=== PATIENT | female | born 1970 | race Caucasian/White ===

== ENCOUNTER 2018-02-13 13:17 | Inpatient (IN) | payer BC ==
[2018-02-13] MEDS ORDERED: NS 0.9% 1000 ML* 1,000 ML IV ONE (13:59)
--- NOTE | 2018-02-13 14:28 | RAD ---
HISTORY: abd pain COMPARISONS: CT dated November 03, 2017 VIEWS: Frontal views of the abdomen. FINDINGS: BOWEL: There is distention with mild dilatation of the colon with a transition at the site of surgical anastomosis of the rectum. There is no small bowel dilatation. CALCULI: There are no abnormal calculi. BONES AND SOFT TISSUES: There are no osseous abnormalities. OTHER FINDINGS: The lung bases are clear. There is no subphrenic gas. IMPRESSION: THERE IS DISTENTION AND MILD DILATATION OF THE LARGE BOWEL WITH A TRANSITION POINT AT THE SITE OF SURGICAL ANASTOMOSIS OF THE RECTUM WHICH MAY INDICATE SOME DEGREE OF MECHANICAL OBSTRUCTION OF THE COLON.
[2018-02-13 14:56] LABS: ABS Basophils 0.1 10^3/ul (0-0.2); ABS Eosinophils 0.1 10^3/ul (0-0.6); ABS Lymphocytes 1.8 10^3/ul (1.0-4.8); ABS Monocytes 0.6 10^3/ul (0-0.8); ABS Nucleated RBC 0 10^3/ul; Eosinophil % 1.3 % (0-6); Hematocrit 45 % (35-47); Hemoglobin 15.2 g/dl (12.0-16.0); Lymphocyte % 21.2 % (25-47); Mean Corpuscular HGB Conc 33 g/dl (31-36); Mean Corpuscular Hemoglobin 29 pg (27-31); Mean Corpuscular Volume 87 fL (80-97); Nucleated Red Blood Cells % 0; Platelet Count 416 10^3/ul (150-450); Red Blood Count 5.24 10^6/ul (4.00-5.40); Red Cell Distribution Width 14 % (10.5-15); White Blood Count 8.6 10^3/ul (3.5-10.8)
[2018-02-13 15:11] LABS: INR 1.03 (0.77-1.02)
[2018-02-13 15:16] LABS: EGFR Non-African American 54.7 (>60)
[2018-02-13] MEDS ORDERED: Iodixanol* (CONTRAST) 320 MG/ML 100 ML SDV IV ONE (15:36)
--- NOTE | 2018-02-13 17:29 | RAD ---
INDICATION: Small bowel obstruction. COMPARISON: Comparison is made with a prior CT of the abdomen and pelvis from November 03, 2017. Correlation is also made with a CT of the chest from August 28, 2015. TECHNIQUE: A CT scan of the abdomen and pelvis was performed with intravenous and with oral contrast following intravenous injection of 66 ml of Visipaque 320 nonionic contrast. Contiguous axial sections were obtained from the lung bases through the symphysis pubis. Images were reconstructed in the coronal and sagittal planes. FINDINGS: There is a small 3 mm nodule present at the right lung base which appears unchanged from prior studies and therefore most consistent with a benign process. No infiltrate or pleural effusion is seen. The liver and spleen are normal in size. There is mild intrahepatic ductal distention. The pancreas is within normal limits in size. There is mild pancreatic ductal distention which is slightly more prominent than on the prior study. The kidneys and adrenal glands are normal in size. No hydronephrosis is seen. No significant focal renal abnormality is seen. The aorta is normal in caliber and demonstrates homogeneous contrast opacification. No significant enlarged retroperitoneal lymph nodes are seen. The stomach is moderately distended. The proximal small bowel is nondistended. The mid and distal small bowel are distended with air-fluid levels approximately to the level of the distal rectum. The patient appears to be status post total colectomy. There is an anastomotic suture in the rectum. The uterus is normal in size and anteverted. There is a cystic lesion present in the left adnexal region measuring 6.5 x 4.6 cm in size which is unchanged from the prior study and less prominent than an exam from June 2015 No free intraperitoneal air or fluid is seen. No significant focal osseous abnormality is seen. IMPRESSION: 1. STATUS POST TOTAL COLECTOMY. THERE IS DISTENTION OF THE MID AND DISTAL SMALL BOWEL WITH AIR-FLUID LEVELS CONSISTENT WITH EITHER A PARTIAL OBSTRUCTION OR ILEUS. 2. MODERATE DISTENTION OF THE STOMACH. 3. MILD INTRAHEPATIC AND PANCREATIC DUCTAL DISTENTION POSSIBLY RELATED TO THE BOWEL DISTENTION. 4. CYSTIC LEFT ADNEXAL LESION, UNCHANGED.
--- NOTE | 2018-02-13 17:42 | ED ---
Abdominal Pain/Female - HPI Summary HPI Summary: Pt is a 47 y/o F who presents to ED c/o abdominal pain. Notes diarrhea, dehydration, and pain from not being able to pass gas. Rates her pain as a 6/10 in severity at triage. She is not in any pain when physician visits the room. Denies rash. She is not eating or drinking well. Pt has been having these GI problems for about a year now and sees Dr. Morgan for them. Had a CAT scan 4 months ago and took a celiac test but results were negative. Had a colostomy but was reconnected in 1993. She doesnt smoke or drink alcohol. - History of Current Complaint Chief Complaint: EDAbdPain Stated Complaint: ABD PAIN/GENERAL ILLNESS Time Seen by Provider: 02/13/18 13:46 Hx Obtained From: Patient Hx Last Menstrual Period: 1 wk ago Onset/Duration: Lasting Weeks, Still Present Severity Currently: Moderate Pain Intensity: 6 Pain Scale Used: 0-10 Numeric Associated Signs and Symptoms: Positive: Diarrhea, Other: - dehydration, NEGATIVE: rash Allergies/Adverse Reactions: Allergies Allergy/AdvReac Type Severity Reaction Status Date / Time levofloxacin Allergy Itching Verified 02/13/18 16:16 Sulfa (Sulfonamide Allergy Rash Verified 02/13/18 16:16 Antibiotics) Home Medications: Home Medications NK [No Home Medications Reported] 02/13/18 [History Confirmed 02/13/18] PMH/Surg Hx/FS Hx/Imm Hx Endocrine/Hematology History: Denies: Hx Diabetes Cardiovascular History: Denies: Hx Angina, Hx Congestive Heart Failure, Hx Coronary Artery Disease, Hx Hypercholesterolemia, Hx Hypertension, Hx Myocardial Infarction, Hx Valvular Heart Disease Respiratory History: Reports: Other Respiratory Problems/Disorders - cough since april, Denies: Hx Asthma, Hx Chronic Obstructive Pulmonary Disease (COPD) GI History: Reports: Hx Gastroesophageal Reflux Disease, Other GI Disorders - hx colitis History: Denies: Hx Renal Disease Psychiatric History: Reports: Hx Attention Deficit Hyperactivity Disorder - Cancer History Hx Chemotherapy: No Hx Radiation Therapy: No - Surgical History Surgery Procedure, Year, and Place: total colectomy , Myomectomy 2009. multiple perirectal abscess/fistula/fissure surgeries. fibroidectomy. c- section 2004 Infectious Disease History: No Infectious Disease History: Denies: Traveled Outside the [place] in Last 30 Days - Family History Known Family History: Positive: Other - Colitis and Celiac Disease - Social History Alcohol Use: Rare Substance Use Type: Reports: None Smoking Status (MU): Never Smoked Tobacco Review of Systems Positive: Other - dehydrated Positive: Abdominal Pain, Diarrhea Negative: Rash All Other Systems Reviewed And Are Negative: Yes Physical Exam - Summary Physical Exam Summary: Appearance: Well appearing, no pain distress Skin: warm, dry, reflects adequate perfusion Head/face: normal Eyes: EOMI, FELICITA ENT: normal Neck: supple, non-tender Respiratory: CTA, breath sounds present Cardiovascular: RRR, pulses symmetrical Abdomen: mild tenderness in LLQ and RLQ, soft Bowel: present Musculoskeletal: strength/ROM intact Neuro: normal, sensory motor intact, A&Ox3 Triage Information Reviewed: Yes Vital Signs On Initial Exam: Initial Vitals Temp Pulse Resp BP Pulse Ox 98.4 F 107 18 137/104 98 02/13/18 13:36 02/13/18 13:36 02/13/18 13:36 02/13/18 13:36 02/13/18 13:36 Vital Signs Reviewed: Yes Diagnostics - Vital Signs Vital Signs Temp Pulse Resp BP Pulse Ox 02/13/18 16:00 67 99 02/13/18 15:00 86 96 02/13/18 14:00 91 96 02/13/18 13:50 95 98 02/13/18 13:36 98.4 F 107 18 137/104 98 - Laboratory Lab Results: Lab Results 02/13/18 02/13/18 02/13/18 Range/Units 14:39 14:39 14:39 WBC 8.6 (3.5-10.8) 10^3/ul RBC 5.24 (4.00-5.40) 10^6/ul Hgb 15.2 (12.0-16.0) g/dl Hct 45 (35-47) % MCV 87 (80-97) fL MCH 29 (27-31) pg MCHC 33 (31-36) g/dl RDW 14 (10.5-15) % Plt Count 416 (150-450) 10^3/ul MPV 7.0 L (7.4-10.4) um3 Neut % (Auto) 70.1 (38-83) % Lymph % (Auto) 21.2 L (25-47) % [place] % (Auto) 6.6 (0-7) % Eos % (Auto) 1.3 (0-6) % Baso % (Auto) 0.8 (0-2) % Absolute Neuts (auto) 6.0 (1.5-7.7) 10^3/ul Absolute Lymphs (auto) 1.8 (1.0-4.8) 10^3/ul Absolute Monos (auto) 0.6 (0-0.8) 10^3/ul Absolute Eos (auto) 0.1 (0-0.6) 10^3/ul Absolute Basos (auto) 0.1 (0-0.2) 10^3/ul Absolute Nucleated RBC 0 10^3/ul Nucleated RBC % 0 INR (Anticoag Therapy) 1.03 H (0.77-1.02) APTT 31.5 (26.0-36.3) seconds Sodium 134 L (135-145) mmol/L Potassium 3.9 (3.5-5.0) mmol/L Chloride 101 (101-111) mmol/L Carbon Dioxide 23 (22-32) mmol/L Anion Gap 10 (2-11) mmol/L BUN 20 (6-24) mg/dL Creatinine 1.07 H (0.51-0.95) mg/dL Est GFR ( Amer) 66.2 (>60) Est GFR (Non-Af Amer) 54.7 (>60) BUN/Creatinine Ratio 18.7 (8-20) Glucose 93 (70-100) mg/dL Lactic Acid (0.5-2.0) mmol/L Calcium 9.7 (8.6-10.3) mg/dL Total Bilirubin 0.90 (0.2-1.0) mg/dL AST 20 (13-39) U/L ALT 12 (7-52) U/L Alkaline Phosphatase 69 (34-104) U/L Total Protein 8.0 (6.4-8.9) g/dL Albumin 4.5 (3.2-5.2) g/dL Globulin 3.5 (2-4) g/dL Albumin/Globulin Ratio 1.3 (1-3) Lipase 17 (11.0-82.0) U/L //18 Range/Units 15:59 WBC (3.5-10.8) 10^3/ul RBC (4.00-5.40) 10^6/ul Hgb (12.0-16.0) g/dl Hct (35-47) % MCV (80-97) fL MCH (27-31) pg MCHC (31-36) g/dl RDW (10.5-15) % Plt Count (150-450) 10^3/ul MPV (7.4-10.4) um3 Neut % (Auto) (38-83) % Lymph % (Auto) (25-47) % [place] % (Auto) (0-7) % Eos % (Auto) (0-6) % Baso % (Auto) (0-2) % Absolute Neuts (auto) (1.5-7.7) 10^3/ul Absolute Lymphs (auto) (1.0-4.8) 10^3/ul Absolute Monos (auto) (0-0.8) 10^3/ul Absolute Eos (auto) (0-0.6) 10^3/ul Absolute Basos (auto) (0-0.2) 10^3/ul Absolute Nucleated RBC 10^3/ul Nucleated RBC % INR (Anticoag Therapy) (0.77-1.02) APTT (26.0-36.3) seconds Sodium (135-145) mmol/L Potassium (3.5-5.0) mmol/L Chloride (101-111) mmol/L Carbon Dioxide (22-32) mmol/L Anion Gap (2-11) mmol/L BUN (6-24) mg/dL Creatinine (0.51-0.95) mg/dL Est GFR ( Amer) (>60) Est GFR (Non-Af Amer) (>60) BUN/Creatinine Ratio (8-20) Glucose (70-100) mg/dL Lactic Acid 0.7 (0.5-2.0) mmol/L Calcium (8.6-10.3) mg/dL Total Bilirubin (0.2-1.0) mg/dL AST (13-39) U/L ALT (7-52) U/L Alkaline Phosphatase (34-104) U/L Total Protein (6.4-8.9) g/dL Albumin (3.2-5.2) g/dL Globulin (2-4) g/dL Albumin/Globulin Ratio (1-3) Lipase (11.0-82.0) U/L Result Diagrams: 02/13/18 14:39 02/13/18 14:39 Lab Statement: Any lab studies that have been ordered have been reviewed, and results considered in the medical decision making process. - Radiology Abdomen X-Ray Radiology Interpretation Completed By: Radiologist - 13:59. Impression: THERE IS DISTENTION AND MILD DILATATION OF THE LARGE BOWEL WITH A TRANSITION POINT AT THE SITE OF SURGICAL ANASTOMOSIS OF THE RECTUM WHICH MAY INDICATE SOME DEGREE OF MECHANICAL OBSTRUCTION OF THE COLON. ED Physician reviewed this report. - CT CT Abd/Pel CT Interpretation Completed By: Radiologist - 15:15. Impression:1. STATUS POST TOTAL COLECTOMY. THERE IS DISTENTION OF THE MID AND DISTAL SMALL BOWEL WITH AIR- FLUID LEVELS CONSISTENT WITH EITHER A PARTIAL OBSTRUCTION OR ILEUS. 2. MODERATE DISTENTION OF THE STOMACH. 3. MILD INTRAHEPATIC AND PANCREATIC DUCTAL DISTENTION POSSIBLY RELATED TO THE BOWEL DISTENTION. 4. CYSTIC LEFT ADNEXAL LESION, UNCHANGED. ED Physician reviewed this report. Abdominal Pain Fem Course/Dx - Course Course Of Treatment: Pt is a 47 y/o F who presents to ED c/o abdominal pain that she rates as a 6/10 in severity . Notes diarrhea, dehydration, and pain from not being able to pass gas. Denies rash. Physical reveals mild tenderness in LLQ and RLQ. Abdomen X-Ray shows distention and dilatation of the large bowel with a transition point at the site of surgical anastomosis of the rectum which may indicate some degree of mechanical obstruction of the colon. CT Abd/ Pel shows distention of the mid and distal small bowel with air-fluid levels consistent with either a partial obstruction or ileus, moderate distention of the stomach, mild intrahepatic and pancreatic ductal distention, and cystic left adnexal lesion. In the ED course she was given fluids and Iodixanol. Pt was diagnosed with partial bowel obstruction, ileus, and abdominal pain and was admitted to [facility] after consulting with Dr. Ramos. Pt is agreeable with plan. - Diagnoses Differential Diagnosis: Positive: Bowel Obstruction, Diverticulitis, Pancreatitis, Renal Colic, Urinary Tract Infection Provider Diagnoses: Partial bowel obstruction, Abdominal pain, Ileus - Provider Notifications Discussed Care Of Patient With: Harrison Ramos Time Discussed With Above Provider: 17:45 Instructed by Provider To: Admit As Inpatient Discharge - Sign-Out/Discharge Documenting (check all that apply): Patient Departure - Admit - Discharge Plan Condition: Fair Disposition: ADMITTED TO [facility] Referrals: Matilda Rodriguez MD [Primary Care Provider] - - Billing Disposition and Condition Condition: FAIR Disposition: Admitted to [facility]
[2018-02-13] MEDS ORDERED: Ondansetron INJ* 2 MG/ML VIAL IV PRN (18:19)
[2018-02-13 18:41] LABS: Urine Appearance Clear; Urine Blood 2+ (Negative); Urine Color Yellow; Urine Ketones 1+ (Negative); Urine Protein Negative (Negative); Urine Red Blood Cell Trace(0-2/hpf) (Absent); Urine Specific Gravity 1.012 (1.010-1.030); Urine Urobilinogen Negative (Negative); Urine White Blood Cell Trace(0-5/hpf) (Absent)
[2018-02-13] MEDS ORDERED: Ciprofloxacin 400MG IVPREMIX(* 400 MG/200 ML BAG IVPB STA (18:41)
[2018-02-13] MEDS ORDERED: Ketorolac INJ* 30 MG/ML 1 ML VIAL IV PUSH PRN (18:44)
[2018-02-13] MEDS ORDERED: Morphine INJ* 2 MG/ML 1 ML SYRINGE (TWO MG - NEW SYRINGE VERSION) IV PRN (18:44)
[2018-02-13] MEDS ORDERED: D5W 1/2 NS 40 Meq KCL 1000 ML* 1,000 ML IV SCH (19:00)
[2018-02-13] MEDS: Pantoprazole IV* 40 MG IV SCH (19:17)
--- NOTE | 2018-02-13 22:50 | HP ---
CC: Matilda Rodriguez MD; Dr. Yovany Morgan.* HISTORY AND PHYSICAL: DATE OF ADMISSION: 02/13/18 PRIMARY CARE DOCTOR: Matilda Rodriguez MD MY ATTENDING PHYSICIAN WHILE IN THE HOSPITAL: Dr. Harrison Ramos * ( DICATED BY DEACON TUCKER) SENIOR PLANNING ANALYST: Dr. Yovany Morgan CHIEF COMPLAINT: Abdominal pain and bloating x2 weeks. HISTORY OF PRESENT ILLNESS: Ms. Mcwilliams is a 47-year-old female with a complex past medical history for ulcerative colitis with pancolitis status post colectomy with ileostomy with subsequent ileoanal pull-through in 1998 as well as a history of reflux, aspiration pneumonia, recurrent pouchitis and small bowel obstruction, who has been having for approximately a year an issue with the early satiety, gas, and bloating but this got much worse over the 2 weeks ago when she was on a vacation and she started having increased abdominal pain, bloating as well as fevers, chills, and fecal incontinence. The patient had has been having frequent small bowel movements with small amounts of red blood in them, which is not uncommon for her. The patient feels like she cannot pass gas and this feels similar to when she previously had small bowel obstructions, but also when she has had pouchitis. The patient previously was admitted for 2 small bowel obstructions most recently in 2009, which resolved after 6 days with NG tube insertion. The patient has had numerous abdominal surgeries as above and most recently had a drainage of a fluid collection in her abdomen under CT guidance. The patient states the pain is a severe at times up to a 10/ 10 worse with movement, better sometimes when she stands still, worse with palpation, not relieved by bowel movements. The patient has been having worsening fecal incontinence for the past several days. The patient also has the sensation occasionally that there is no blood flow to her abdomen, but she cannot elucidate on this further. The patient has been nauseated without vomiting, has not had reflux symptoms, but does not feel like her when she eats anything that her food goes anywhere and this has been going on for 2 weeks with very poor oral intake. The patient came into the emergency department and had a pelvis CT, which showed concern for small bowel obstruction with multiple air fluid levels in the distal small bowel with mild intrahepatic pancreatic ductal dilatation possibly to bowel obstruction and mild distention of the stomach. Due to the concern for small bowel obstruction, we are asked to admit the patient to the hospital. PAST MEDICAL HISTORY: Ulcerative colitis with pancolitis, ileal pouchitis, GERD with aspiration pneumonia, obstructive sleep apnea, ADD, depression, small bowel obstruction x2, uterine fibroids, cholecystitis with pancreatitis, multiple perirectal abscesses. PAST SURGICAL HISTORY: Ileostomy with ileal pull-through, cholecystectomy, fibroidectomy, , CT guided drainage both intra-abdominal fluid collection. MEDICATIONS: 1. Loratadine 10 mg p.o. daily. 2. The patient recently discontinued hyoscyamine for cramping as well as bupropion for anxiety depression. ALLERGIES: SULFA, LEVOFLOXACIN. FAMILY HISTORY: The patient's brother has ulcerative colitis. The patient's sister has celiac disease. The patient's father is alive, has hypertension, diabetes mellitus. The patient's mother of aortic dissection. SOCIAL HISTORY: The patient never smoked, never drank, never used illicit drugs. 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 The patient is , has 1 child. The patient would like her surrogate decision maker to be her , Yanick Mcwilliams. REVIEW OF SYSTEMS: 14 point review of systems were reviewed, is negative except as above in the HPI. PHYSICAL EXAMINATION GENERAL: The patient is a 47-year-old female, who appears stated age and sitting comfortably in bed in no acute distress. VITAL SIGNS: At the time of evaluation, temperature 98.4, pulse rate 67, respiratory rate 18, oxygen saturation 99% on room air, blood pressure 137/104. HEENT: Head: Normocephalic, atraumatic. Sclerae anicteric. No conjunctival injection. Nasal mucosa moist. Oral mucosa moist. No pharyngeal erythema, discharge, or exudate. NECK: Supple, nontender. No lymphadenopathy. No carotid bruit auscultated. No JVD. RESPIRATORY: Clear to auscultation bilaterally. No wheezes, rales or rhonchi. Good air exchange bilaterally. HEART: Regular rate and rhythm. No clicks, murmurs, gallops or rubs. Pulse is 2+ in the dorsalis pedis, posterior tibialis, and radial areas. ABDOMEN: Distended, tympanic to percussion, tender to palpation over the bilateral lower quadrants. No hepatosplenomegaly. No abdominal bruits auscultated. No hepatojugular reflux. Hyperactive bowel sounds of normal quality. Rectal exam shows constricted rectal vault with no mass, small amount of stool present, no blood, warmth and inflammation. GENITOURINARY: No suprapubic or CVA tenderness. SKIN: Clean, dry, intact. No rash. Multiple abdominal scars consistent with previous surgeries. NEUROLOGIC: Cranial nerves II through XII intact. No focal deficits. Alert and oriented x3. PSYCHIATRIC: Pleasant and cooperative. DIAGNOSTIC STUDIES/LAB DATA: White blood cell count 8.6, hemoglobin 15.2, hematocrit 45, platelet count 416, INR 1.03, aPTT 31.5. Sodium 134, potassium 3.9, chloride 101, carbon dioxide 23, anion gap 10, BUN 20, creatinine 1.07, glucose 93, lactic acid 0.7, calcium 9.7, bilirubin 0.9, AST 20, ALT 12, alkaline phosphatase 69. Total protein 8.0, albumin 4.5, globulin 3.5, lipase 17. Studies done while in the hospital, abdomen x-ray read as there is distention, mild dilatation of large bowel with transition point at the site of surgical anastomosis of the rectum, which may indicate some degree of obstruction of the colon. Abdomen pelvis CT read as status post total colectomy, there is distention of the mid and distal small bowel with air fluid levels consistent with either partial small bowel obstruction or ileus, mild distention of the stomach, mild intrahepatic and pancreatic ductal dilatation possibly related to bowel distention, cystic left adnexal lesion unchanged. ASSESSMENT AND PLAN/IMPRESSION: Ms. Mcwilliams is a 47-year-old female with past medical history significant for ulcerative colitis with subtotal colectomy with ileoanal pull-through and recurrent ileal pouchitis as well as 2 small bowel obstructions presumably related adhesions, who presents to the hospital with worsening abdominal distention and bloating, was found to have possible small bowel obstruction or ileus and clinical signs consistent with patient's previous episode of pouchitis. The patient will be admitted to the hospital for NG tube decompression, IV antibiotics and supportive care. 1. Partial small bowel obstruction versus ileus: The patient has a history of multiple small bowel obstructions related to presumed adhesions due to numerous intra-abdominal surgeries, these have both previously resolved with NG tube insertion and conservative treatment. Surgery has been consulted and recommended again NG tube insertion and they will see the patient tomorrow. The patient is still having bowel movements, have a normal lactic acid, and there is no urgent need for surgery. The patient has clinical signs of pouchitis and this may also be ileus related to inflammation. We will obtain Gastroenterology consultation when available if the patient still admitted. The patient will be n.p.o. and have a repeat abdominal x-ray in the morning. 2. Possible pouchitis: The patient has a history of pouchitis, which is usually accompanied by abdominal pain, tenesmus and fecal incontinence, which the patient is having at this time. We will treat with IV Cipro as the patient is n.p.o. and monitor for improvement. It is unclear the patient should be considered to be started on prophylactic therapy for pouchitis outpatient including probiotic therapy. 3. Gastroesophageal reflux disease: The patient is not currently on antacid therapy. We will start the patient on pantoprazole as she has a history of gastroesophageal reflux disease and aspiration pneumonia. 4. Obstructive sleep apnea: The patient will not be able to use her CPAP machine from home due to NG tube. 5. Ulcerative colitis: It is unclear why the patient is not on disease- modifying therapy, that should be discussed with her outpatient tamping machine operator and none will be instituted while she is in the hospital 6. Depression: The patient recently stopped her Wellbutrin. The patient is to follow up with her outpatient primary care provider. After the acute phase of her illness, we will discuss her treatment of depression and attention deficit disorder. 7. FEN: The patient will have maintenance fluids at 75 mL an hour of one half normal saline D5W with 40 mEq of potassium chloride. 8. DVT prophylaxis: The patient is a low risk. The patient will have SCDs in the setting of small amount of rectal bleeding. 9. Disposition: The patient is admitted inpatient with expected length of stay greater than 2 midnights. TIME SPENT: Approximately 90 minutes were spent on this admission, 45 of which was spent [id number] with the patient obtaining history and physical and discussing treatment plan. This plan was discussed with my attending, Dr. Lavelle Ramos, and he is in agreement. DEACON TUCKER [id number]/[facility] #: [id number] [facility]ENTERIsrael
--- NOTE | 2018-02-14 00:54 | CONS ---
CC: Dr. Matilda Rodriguez; Dr. Yovany Morgan * CONSULTATION REPORT: DATE OF CONSULT: 02/13/18 PRIMARY CARE PROVIDER: Dr. Matilda Rodriguez. REFERRING PROVIDER: DEACON Betancourt, Hospitalist. REASON FOR CONSULTATION: Possible small-bowel obstruction. HISTORY OF PRESENT ILLNESS: Ms. Katarzyna Mcwilliams is a very pleasant 47-year-old woman who had been diagnosed with ulcerative colitis many years ago and underwent a staged procedure back in 1992 and 1993 in [facility] where she had a total proctocolectomy with subsequent ileoanal pouch formation. She had some problems in the past with multiple perirectal abscesses and fistulas, but this has been quiescent. She presented to the emergency room with several weeks of worsening abdominal crampiness and distention associated with nausea. She states she always had loose bowel movements since her surgery, which is to be expected and has had several flexible sigmoidoscopies performed by Dr. Nair and Dr. Morgan and has been diagnosed with pouchitis and is treated with antibiotics for short periods of time. She is on no other inflammatory bowel medications. Over the last several weeks; however, she has become more distended and crampy abdominal discomfort with nausea and she presented to the emergency room today for further care. She further states that she has been having difficulty passing bowel movements but is able to pass some gas. She was noted to be afebrile with stable vital signs. Laboratory workup was unremarkable with a normal white blood cell count and electrolytes with a BUN and creatinine of 21.07. Albumin level was 4.5 and she had a C-reactive protein of 22. She underwent a CT scan of the abdomen and pelvis. I did review this study. This has been read by our radiologist as showing postsurgical change without obvious colorectum with some distention in the mid and distal small bowel with the distal pouch, which appears to be markedly distended with gas and fluid. The stomach was also markedly distended and filled with contrast fluid, but there was also collapsed small bowel in what appeared to be the proximal portion. Surgical consultation was obtained to rule out partial small-bowel obstruction. PAST MEDICAL HISTORY: Ulcerative colitis. HOME MEDICINES: None. ALLERGIES: She is allergic to LEVOFLOXACIN and SULFA. SOCIAL HISTORY: She has a one 13-year-old son. She is and stays as a [id number] mom. PHYSICAL EXAM: Temperature 98.2, pulse 74, blood pressure 125/81. In general, she is well-developed, very slender female, who was in no apparent distress. She is quite alert and conversive. A nurse was present for me for this part of the examination. Lungs were clear to auscultation. Abdomen is soft, but slightly distended. She has a well-healed midline incision as well as an ostomy site in the right mid abdomen. I appreciate no incisional hernias. She has hyperactive bowel sounds and almost rushy, but not high-pitched or tinkling. She has some mild tenderness on the right side of the abdomen, but there is no generalized abdominal pain, tenderness, rebound, or guarding noted. Rectal exam shows a significant amount of scarring in the perianal skin, but no abscesses or obvious fistulous openings. Digital rectal exam with the index finger; however, it is somewhat narrowed externally; however, passing this up to about 4 to 5 cm, I am able to identify what appears to be narrowing and I am able to only feel the relative change in the diameter of the lumen. Due to the patient's discomfort, I did not attempt to try to pass my finger further. There was no blood and no stool was expressed. IMPRESSION: Ulcerative colitis, status post total proctocolectomy with ileoanal J- pouch pull-through. This was done in 1993 and she had been doing well until about the last 6 months. She has had problems with pouchitis, but more recently is having abdominal distention and crampy abdominal pain, but is still passing flatus and several loose bowel movements. She underwent a flexible sigmoidoscopy several months ago with Dr. Morgan that shows pouchitis ; however, he states that there was no evidence of anal stenosis on a digital exam or passing the lubricated gastroscope into the distal small bowel. I am not convinced that there is a partial small-bowel obstruction here. The CT scan shows the stomach to be dilated, but this seems to me that the proximal small bowel is nondistended, but there is mid to distal small bowel distention, which is increased from the previous study done in October of this year. The distal small bowel extending down to the pouch area is distended and markedly fluid filled and I do not think that this finding is consistent with a bowel obstruction, although there could be a high-grade partial obstruction. There does not appear to be contrast at this point down into the more distended loops of small bowel, however. My main concern here would be anal stenosis at the probable site of the very distal anastomosis and also she has a history of abscesses and fistulas that could result in scarring and stenosis. Her rectal exam is impressive for the degree of narrowing as per above. PLAN: 1. The patient has been admitted and nasogastric has been inserted. There was a full canister drainage on initial insertion, but it does not appear to be draining much. 2. Repeat abdominal films will be obtained in the morning to follow the contrast from the oral portion of the exam to see if this is getting into the more distended loops of bowel to hopefully further evaluate for bowel obstruction or partial obstruction and to see if contrast passes down into the distal bowel. 3. We will talk with the GI service when they are available regarding the distal possible anal stenosis or anastomotic stenosis as this may be a source of her distention and may need dilation or other intervention. 4. She has been started on IV fluids and will be kept n.p.o. Thank you very much for this consultation. We will follow her closely with you. [id number]/[facility] #: [id number] BRITNEY
[2018-02-14 06:26] LABS: ABS Basophils 0.1 10^3/ul (0-0.2); ABS Eosinophils 0.3 10^3/ul (0-0.6); ABS Lymphocytes 1.6 10^3/ul (1.0-4.8); ABS Monocytes 0.7 10^3/ul (0-0.8); ABS Neutrophils 5.4 10^3/ul (1.5-7.7); ABS Nucleated RBC 0 10^3/ul; Eosinophil % 4.2 % (0-6); Hematocrit 41 % (35-47); Hemoglobin 13.5 g/dl (12.0-16.0); Lymphocyte % 19.5 % (25-47); Mean Corpuscular HGB Conc 33 g/dl (31-36); Mean Corpuscular Hemoglobin 29 pg (27-31); Mean Corpuscular Volume 88 fL (80-97); Mean Platelet Volume 6.9 um3 (7.4-10.4); Nucleated Red Blood Cells % 0; Platelet Count 379 10^3/ul (150-450); Red Blood Count 4.69 10^6/ul (4.00-5.40); Red Cell Distribution Width 13 % (10.5-15)
[2018-02-14 06:47] LABS: EGFR Non-African American 71.4 (>60)
--- NOTE | 2018-02-14 08:07 | RAD ---
INDICATION: Small bowel obstruction COMPARISON: KUB February 13, 2018; CT February 13, 2018 TECHNIQUE: Erect and supine views of the abdomen are submitted. FINDINGS: Bones: There are no acute bony findings. Soft tissues: The soft tissues appear normal. The psoas margins are sharp. Bowel gas pattern: There is air filled distended bowel down to level the rectum. There is contrast in the rectal vault. The findings are likely related to an ileus. The stomach is decompressed with nasogastric tube Calcifications: There are no abnormal calcifications. Other: None IMPRESSION: SUSPECT ILEUS.
--- NOTE | 2018-02-14 10:54 | PN ---
Progress Note - Progress Note Date of Service: 02/14/18 SOAP: Subjective: Had large amount of liquid stool and flatus after digital rectal exam last night Still with some abdominal cramps and pain Objective: Temp Pulse Resp BP Pulse Ox 98.3 F 65 14 114/72 100 02/14/18 07:20 02/14/18 07:20 02/14/18 07:20 02/14/18 07:20 02/14/18 07:20 Intake & Output 02/12/18 02/13/18 02/14/18 02/15/18 06:59 06:59 06:59 06:59 Intake Total 1000 Output Total 0 Balance 1000 Weight 118 lb 14.4 oz Intake: IV Fluids 1000 NS (0.9%) 1000 Oral 0 Output: Urine 0 Other: # Bowel Movements 0 About 200 cc of thin greenish fluid in NGT cannister PEX: Abdomen is soft and distended, less so than last night. Mild tenderness in mid portion, no rebound, guarding, peritoneal irritation Laboratory Results - last 24 hr 02/13/18 02/13/18 02/13/18 14:39 14:39 14:39 WBC 8.6 RBC 5.24 Hgb 15.2 Hct 45 MCV 87 MCH 29 MCHC 33 RDW 14 Plt Count 416 MPV 7.0 L Neut % (Auto) 70.1 Lymph % (Auto) 21.2 L Kingman % (Auto) 6.6 Eos % (Auto) 1.3 Baso % (Auto) 0.8 Absolute Neuts (auto) 6.0 Absolute Lymphs (auto) 1.8 Absolute Monos (auto) 0.6 Absolute Eos (auto) 0.1 Absolute Basos (auto) 0.1 Absolute Nucleated RBC 0 Nucleated RBC % 0 ESR 28 H INR (Anticoag Therapy) 1.03 H APTT 31.5 Sodium 134 L Potassium 3.9 Chloride 101 Carbon Dioxide 23 Anion Gap 10 BUN 20 Creatinine 1.07 H Est GFR ( Amer) 66.2 Est GFR (Non-Af Amer) 54.7 BUN/Creatinine Ratio 18.7 Glucose 93 Lactic Acid Calcium 9.7 Magnesium Total Bilirubin 0.90 AST 20 ALT 12 Alkaline Phosphatase 69 C-Reactive Protein 22.02 H Total Protein 8.0 Albumin 4.5 Globulin 3.5 Albumin/Globulin Ratio 1.3 Lipase 17 Vitamin B12 540 Urine Color Urine Appearance Urine pH Ur Specific [place] Urine Protein Urine Ketones Urine Blood Urine Nitrate Urine Bilirubin Urine Urobilinogen Ur Leukocyte Esterase Urine WBC (Auto) Urine RBC (Auto) Ur Squamous Epith Cells Urine Bacteria Hyaline Casts Urine Glucose 02/13/18 02/13/18 02/14/18 15:59 18:24 06:01 WBC 8.0 RBC 4.69 Hgb 13.5 Hct 41 MCV 88 MCH 29 MCHC 33 RDW 13 Plt Count 379 MPV 6.9 L Neut % (Auto) 67.1 Lymph % (Auto) 19.5 L Kingman % (Auto) 8.5 H Eos % (Auto) 4.2 Baso % (Auto) 0.7 Absolute Neuts (auto) 5.4 Absolute Lymphs (auto) 1.6 Absolute Monos (auto) 0.7 Absolute Eos (auto) 0.3 Absolute Basos (auto) 0.1 Absolute Nucleated RBC 0 Nucleated RBC % 0 ESR INR (Anticoag Therapy) APTT Sodium Potassium Chloride Carbon Dioxide Anion Gap BUN Creatinine Est GFR ( Amer) Est GFR (Non-Af Amer) BUN/Creatinine Ratio Glucose Lactic Acid 0.7 Calcium Magnesium Total Bilirubin AST ALT Alkaline Phosphatase C-Reactive Protein Total Protein Albumin Globulin Albumin/Globulin Ratio Lipase Vitamin B12 Urine Color Yellow Urine Appearance Clear Urine pH 5.0 Ur Specific [place] 1.012 Urine Protein Negative Urine Ketones 1+ A Urine Blood 2+ A Urine Nitrate Negative Urine Bilirubin Negative Urine Urobilinogen Negative Ur Leukocyte Esterase Negative Urine WBC (Auto) Trace(0-5/hpf) Urine RBC (Auto) Trace(0-2/hpf) Ur Squamous Epith Cells Present A Urine Bacteria Absent Hyaline Casts Present A Urine Glucose Negative 02/14/18 06:01 WBC RBC Hgb Hct MCV MCH MCHC RDW Plt Count MPV Neut % (Auto) Lymph % (Auto) Kingman % (Auto) Eos % (Auto) Baso % (Auto) Absolute Neuts (auto) Absolute Lymphs (auto) Absolute Monos (auto) Absolute Eos (auto) Absolute Basos (auto) Absolute Nucleated RBC Nucleated RBC % ESR INR (Anticoag Therapy) APTT Sodium 136 Potassium 4.0 Chloride 105 Carbon Dioxide 23 Anion Gap 8 BUN 15 Creatinine 0.85 Est GFR ( Amer) 86.4 Est GFR (Non-Af Amer) 71.4 BUN/Creatinine Ratio 17.6 Glucose 99 Lactic Acid Calcium 8.7 Magnesium 2.2 Total Bilirubin 1.30 H AST 125 H ALT 46 Alkaline Phosphatase 75 C-Reactive Protein Total Protein 6.7 Albumin 3.9 Globulin 2.8 Albumin/Globulin Ratio 1.4 Lipase Vitamin B12 Urine Color Urine Appearance Urine pH Ur Specific [place] Urine Protein Urine Ketones Urine Blood Urine Nitrate Urine Bilirubin Urine Urobilinogen Ur Leukocyte Esterase Urine WBC (Auto) Urine RBC (Auto) Ur Squamous Epith Cells Urine Bacteria Hyaline Casts Urine Glucose AXR 02/14 reviewed: Dilated SB throughout with CT oral contrast now down into most distal portion of SB in pelvis. Assessment: S/P total proctocolectomy with J pouch SB bowel dilation With clinical history, CT and AXR this morning and findings on rectal exam last night I do not believe that she has a proximal SBO obstruction but rather stenosis at the distal SB to anal anastomosis which is causing her obstructive symptoms. Optimal management not clear but need to talk with GI about scoping and possible dilation depending on findings. She may need to see a colorectal surgeon. No operative intervention recommended at this point. Plan: Discussed with patient and Dr. Abbott- need to talk with GI about scoping and management-not certain if GI coverage this weekend. Will d/c NGT
[2018-02-14] MEDS: Ciprofloxacin 400MG IVPREMIX(* 400 MG/200 ML BAG IVPB SCH ×2 (11:24→21:09)
[2018-02-14] MEDS: Acetaminophen TAB* 325 MG PO PRN (11:30)
[2018-02-14] MEDS: metroNIDAZOLE IV 500 MG/100ML* 500 MG/100 ML BAG IVPB SCH ×2 (13:15→19:44)
--- NOTE | 2018-02-14 13:30 | PN ---
Subjective Date of Service: 02/14/18 Interval History: HOSPITALIST PROGRESS NOTE Patient seen and examined at bedside. She feels a little better today. Abdominal pain is less intense, she doesn't feel as bloated as she did before. No N/V, but no appetite either. Family History: Unchanged from Admission Social History: Unchanged from Admission Past Medical History: Unchanged from Admission Objective Active Medications: Acetaminophen (Tylenol Tab*) 650 mg PO Q6H PRN PRN Reason: FEVER/PAIN Last Admin: 02/14/18 11:30 Dose: 650 mg Ciprofloxacin/Dextrose (Cipro 400 Mg Ivpremix(*)) 400 mg in 200 mls @ 200 mls/ hr IVPB Q12H [facility] Last Admin: 02/14/18 11:24 Dose: 200 mls/hr Potassium Chloride/Dextrose (D5w Ns 0.9% 20meq Kcl 1000 Ml*) 1,000 mls @ 75 mls /hr IV PER RATE [facility] Metronidazole/Sodium Chloride (Flagyl 500 Mg Ivpb*) 500 mg in 100 mls @ 100 mls /hr IVPB Q8H [facility] Last Admin: 02/14/18 13:15 Dose: 100 mls/hr Ketorolac Tromethamine (Toradol Inj*) 30 mg IV PUSH Q6H PRN PRN Reason: PAIN Last Admin: 02/13/18 19:25 Dose: 30 mg Morphine Sulfate (Morphine Inj ((Syringe))*) 2 mg IV Q4H PRN PRN Reason: PAIN - MILD Last Admin: 02/13/18 19:22 Dose: 2 mg Ondansetron HCl (Zofran Inj*) 4 mg IV Q6H PRN PRN Reason: NAUSEA Pantoprazole Sodium (Protonix Iv*) 40 mg IV 1800 [facility] Last Admin: 02/13/18 19:17 Dose: 40 mg Vital Signs - 8 hr 02/14/18 07:20 Temperature 98.3 F Pulse Rate 65 Respiratory 14 Rate Blood Pressure 114/72 (mmHg) O2 Sat by Pulse 100 Oximetry Oxygen Devices in Use Now: None Appearance: Pleasant lady sitting up in bed in NAD. Eyes: No Scleral Icterus Ears/Nose/Mouth/Throat: Mucous Membranes Moist Neck: Trachea Midline Abdominal: - - Soft, mild distention, BS+ Neurological: Alert and Oriented x 3, NL Muscle Strength and Tone Result Diagrams: 02/14/18 06:01 07/28/18 06:01 Assess/Plan/Problems-Billing Assessment: Mrs Mcwilliams is a 47yo F with PMH of UC s/p proctocolectomy with J pouch, GERD, OLIVE, who presented to ED with c/o abdominal pain and bloating. - Patient Problems (1) SBO (small bowel obstruction) Comment: - SBO vs stenosis of anal anastomosis. - Surgery input apreciated. - Remove NGT, give ice chips. - Will discuss with GI. (2) GERD (gastroesophageal reflux disease) Comment: - Continue PPI. (3) OLIVE (obstructive sleep apnea) Comment: - Resume CPAP. (4) DVT prophylaxis Comment: - SCDs. (5) Full code status Status and Disposition: Inpatient.
[2018-02-14] MEDS: D5W NS 0.9% 20Meq KCL 1000 ML* 1,000 ML IV SCH (15:13)
[2018-02-14] MEDS: Pantoprazole IV* 40 MG IV SCH (17:33)
[2018-02-15] MEDS: metroNIDAZOLE IV 500 MG/100ML* 500 MG/100 ML BAG IVPB SCH ×3 (03:54→19:57)
[2018-02-15 07:09] LABS: EGFR Non-African American 75.5 (>60)
[2018-02-15] MEDS: Ciprofloxacin 400MG IVPREMIX(* 400 MG/200 ML BAG IVPB SCH ×2 (08:25→21:19)
[2018-02-15] MEDS: D5W NS 0.9% 20Meq KCL 1000 ML* 1,000 ML IV SCH (08:25)
[2018-02-15] MEDS: Acetaminophen TAB* 325 MG PO PRN (08:31)
--- NOTE | 2018-02-15 08:43 | RAD ---
INDICATION: Small bowel [id number] COMPARISON: February 06, 2018 TECHNIQUE: Erect and supine views of the abdomen are submitted. FINDINGS: Bones: There are no acute bony findings. Soft tissues: The soft tissues appear normal. The psoas margins are sharp. Bowel gas pattern: The bowel gas pattern is unchanged. The findings are likely related to an ileus. Calcifications: There are no abnormal calcifications. Other: There are postsurgical changes projecting over the rectum IMPRESSION: No interval change. Suspect ileus. Recommend follow-up as clinically indicated
--- NOTE | 2018-02-15 09:02 | PN ---
Progress Note - Progress Note Date of Service: 02/15/18 Note: seen in f/u for abd pain, partial obstr No pain, feeling better, passed a large amt of flatus Feels like she is back to her baseline Color good, does not appear ill abd benign Would try liquids might be able to go home on liqs She may be best served by colorectal f/u I would be able to put her in touch with the group in [place] if needed
--- NOTE | 2018-02-15 17:10 | PN ---
Subjective Date of Service: 02/15/18 Interval History: HOSPITALIST PROGRESS NOTE Patient seen and examined at bedside. Care reviewed and d/w Shraddha Wharton RN. She feels a little better today. Abdominal pain is still present, but now is more of a discomfort. Wants to try clear liquids and see how she feels. Family History: Unchanged from Admission Social History: Unchanged from Admission Past Medical History: Unchanged from Admission Objective Active Medications: Acetaminophen (Tylenol Tab*) 650 mg PO Q6H PRN PRN Reason: FEVER/PAIN Last Admin: 02/15/18 08:31 Dose: 650 mg Ciprofloxacin/Dextrose (Cipro 400 Mg Ivpremix(*)) 400 mg in 200 mls @ 200 mls/ hr IVPB Q12H [facility] Last Admin: 02/15/18 08:25 Dose: 200 mls/hr Metronidazole/Sodium Chloride (Flagyl 500 Mg Ivpb*) 500 mg in 100 mls @ 100 mls /hr IVPB Q8H [facility] Last Admin: 02/15/18 12:18 Dose: 100 mls/hr Ketorolac Tromethamine (Toradol Inj*) 30 mg IV PUSH Q6H PRN PRN Reason: PAIN Last Admin: 02/13/18 19:25 Dose: 30 mg Morphine Sulfate (Morphine Inj ((Syringe))*) 2 mg IV Q4H PRN PRN Reason: PAIN - MILD Last Admin: 02/13/18 19:22 Dose: 2 mg Ondansetron HCl (Zofran Inj*) 4 mg IV Q6H PRN PRN Reason: NAUSEA Pantoprazole Sodium (Protonix Iv*) 40 mg IV 1800 [facility] Last Admin: 02/14/18 17:33 Dose: 40 mg Vital Signs - 8 hr 02/15/18 02/15/18 02/15/18 11:31 13:26 15:32 Temperature 98.3 F 98.6 F Pulse Rate 70 66 62 Respiratory 17 18 Rate Blood Pressure 97/61 101/69 117/78 (mmHg) O2 Sat by Pulse 99 100 Oximetry Oxygen Devices in Use Now: None Appearance: Pleasant lady lying in bed in NAD. Eyes: No Scleral Icterus Ears/Nose/Mouth/Throat: Mucous Membranes Moist Neck: Trachea Midline Respiratory: Symmetrical Chest Expansion and Respiratory Effort, Clear to Auscultation Cardiovascular: NL Sounds; No Murmurs; No JVD, RRR Abdominal: - - Soft, mild diffuse tenderness, NG, NR, BS+ Extremities: No Edema Neurological: Alert and Oriented x 3, NL Muscle Strength and Tone Result Diagrams: 02/14/18 06:01 02/15/18 06:10 Assess/Plan/Problems-Billing Assessment: Mrs Mcwilliams is a 47yo F with PMH of UC s/p proctocolectomy with J pouch, GERD, OLIVE, who presented to ED with c/o abdominal pain and bloating. - Patient Problems (1) SBO (small bowel obstruction) Comment: - SBO vs stenosis of anal anastomosis. - Surgery f/u apreciated. - Start clear liquids and monitor. (2) GERD (gastroesophageal reflux disease) Comment: - Continue PPI. (3) OLIVE (obstructive sleep apnea) Comment: - Resume CPAP. (4) DVT prophylaxis Comment: - SCDs. (5) Full code status Status and Disposition: Inpatient.
[2018-02-15] MEDS: Pantoprazole IV* 40 MG IV SCH (17:42)
[2018-02-16] MEDS: metroNIDAZOLE IV 500 MG/100ML* 500 MG/100 ML BAG IVPB SCH (03:21)
[2018-02-16] MEDS: Ciprofloxacin 400MG IVPREMIX(* 400 MG/200 ML BAG IVPB SCH (07:47)
[2018-02-16] MEDS ORDERED: diPHENhydraMINE IV* 50 MG/ML 1 ml VIAL (BENADRYL) SLOW PUSH ONE (10:32)
[2018-02-16] MEDS ORDERED: diPHENhydraMINE PO* 25 MG ONE (10:53)
[2018-02-16 12:02] VITALS: BP 104/70
[2018-02-16] MEDS ORDERED: diPHENhydraMINE PO* 25 MG PO PRN (16:30)
--- NOTE | 2018-02-17 14:38 | DS ---
CC: Dr. Rodriguez; Dr. Morgan; Dr. Olvin Colbert, phone# [phone] * DISCHARGE SUMMARY: DATE OF ADMISSION: 02/13/18 DATE OF DISCHARGE: 02/16/18 PRIMARY CARE PROVIDER: Dr. Matilda Rodriguez. LABOURERS: Dr. Morgan. COLORECTAL SURGEON: Dr. Olvin Colbert. DISCHARGE DIAGNOSES: 1. Small bowel obstruction versus stenosis of anal anastomosis. 2. Possible pouchitis. 3. Possible allergic reaction to CIPRO or FLAGYL. SECONDARY DIAGNOSES: 1. Ulcerative colitis, status post proctocolectomy with J-pouch. 2. Gastroesophageal reflux disease. 3. Obstructive sleep apnea. MEDICATION LIST: 1. Benadryl 25 mg p.o. q.6 hours p.r.n. itching/rash. 2. Tylenol 650 mg p.o. q.6 hours p.r.n. pain or fever. HOSPITAL COURSE: Ms. Mcwilliams is a 47-year-old lady with a past medical history as stated above that presented to the emergency room with complaints of progressive abdominal pain and bloating for 2 weeks preceding her admission. For more details about her presentation, I refer you to her history and physical. In the emergency room, the patient had an abdomen x-ray that showed distention and mild dilatation of the large bowel with a transition point at the site of surgical anastomosis of the rectum, which may indicate some degree of mechanical obstruction of the colon. CT of the abdomen and pelvis showed status post total colectomy with distention of the mid and distal small bowel with air-fluid levels consistent with either a partial obstruction or ileus. Moderate distention of the stomach. The patient was admitted to the medical floor, was seen in consultation by General Surgery (Dr. Roy), and he was not convinced that the patient had a partial small bowel obstruction, so his main concern would be anal stenosis at the site of the very distal anastomosis as the patient had a history of recurrent abscesses and fistulas in the area and her rectal exam was impressive for the degree of narrowing he found. The patient had a NG tube placed with drainage of more than 1000 cc of fluid. The patient had a significant relief after that and after the rectal exam, she was able to pass stool and large amount of gas with significant symptomatic relief. She had been started initially on Cipro and Flagyl for possible pouchitis. She developed a minimal rash on her hand and she states that in the past, she had something similar, but she was not clear if this was called an allergy. In any case, the antibiotics were discontinued. She received Benadryl with symptomatic relief. She would prefer to follow up with her colorectal surgeon in [facility] [place] and depending on his opinion, she would then follow up with surgeons here in [place] and maybe accept a referral to [facility]. She was able to tolerate a full liquid diet. She has had significant improvement of her symptoms and she felt well enough to be discharged home today. PHYSICAL EXAMINATION: Vital Signs: Temperature 98.2, heart rate is 61, respiratory rate 18, oxygen saturation 99% on room air, blood pressure 127/84. General: The patient is a thin, pleasant lady, sitting up in bed, in no acute distress. CVS: Normal S1 and S2. Regular rate and rhythm. Chest: Breath sounds present bilaterally with no added sounds. Abdomen: Soft with mild diffuse tenderness. No guarding, no rebound. Bowel sounds present. There are old surgical scars present, well healed. Neuro: She is alert and oriented x3. Able to move all 4 extremities. DIET: Full liquid diet. ACTIVITIES: As tolerated. STATUS WHILE IN THE HOSPITAL: Inpatient. DISPOSITION: Home. Please keep in mind this is a summarized version of this patient's hospital stay. If you need more information, please feel free to call me at [phone] or please obtain the full medical records. TIME SPENT: Approximately 45 minutes was spent to complete this discharge. [id number]/[facility] #: [id number] BRITNEY
== END 2018-02-16 13:53 | disposition home or self-care (01) | DRG 247 ==
LOC: ED 13:17 → MED 18:19
PROVIDERS: ADMIT Student in an Organized Health Care Education/Training Program; ATTEND Internal Medicine
DX: K56.50 Intestinal adhesions [bands], unspecified as to partial versus complete obstruction (principal); K91.850 Pouchitis; K51.90 Ulcerative colitis, unspecified, without complications; K62.4 Stenosis of anus and rectum; T36.8X5A Adverse effect of other systemic antibiotics, initial encounter; T37.3X5A Adverse effect of other antiprotozoal drugs, initial encounter; Y92.230 Patient room in hospital as the place of occurrence of the external cause; K21.9 Gastro-esophageal reflux disease without esophagitis; G47.33 Obstructive sleep apnea (adult) (pediatric); F98.8 Other specified behavioral and emotional disorders with onset usually occurring in childhood and adolescence; F32.9 Major depressive disorder, single episode, unspecified; Z93.2 Ileostomy status; Z79.899 Other long term (current) drug therapy; Z88.2 Allergy status to sulfonamides; Z88.8 Allergy status to other drugs, medicaments and biological substances; Z83.3 Family history of diabetes mellitus; Z82.49 Family history of ischemic heart disease and other diseases of the circulatory system; Z83.79 Family history of other diseases of the digestive system
CPT/HCPCS: 36415; 74018; 74019; 74177; 80053; 81003; 81015; 82272; 82607; 83605; 83690; 83735; 85025; 85610; 85652; 85730; 86140; 87086; 99284; A9270-GY; J0744; J1200; J1885; J2270; J3490; Q9967

== ENCOUNTER 2018-07-04 22:39 | Emergency (ER) | payer BC ==
[2018-07-04] MEDS ORDERED: NS 0.9% 1000 ML* 1,000 ML IV ONE (23:14)
[2018-07-04 23:56] LABS: ABS Basophils 0 10^3/ul (0-0.2); ABS Eosinophils 0.4 10^3/ul (0-0.6); ABS Lymphocytes 1.7 10^3/ul (1.0-4.8); ABS Monocytes 0.7 10^3/ul (0-0.8); ABS Neutrophils 9.7 10^3/ul (1.5-7.7); ABS Nucleated RBC 0 10^3/ul; Eosinophil % 2.9 %; Hematocrit 39 % (35-47); Lymphocyte % 13.6 %; Mean Corpuscular HGB Conc 33 g/dl (31-36); Mean Corpuscular Hemoglobin 29 pg (27-31); Mean Corpuscular Volume 87 fL (80-97); Mean Platelet Volume 7.1 fL (7.4-10.4); Nucleated Red Blood Cells % 0; Platelet Count 369 10^3/ul (150-450); Red Blood Count 4.48 10^6/ul (4.00-5.40); Red Cell Distribution Width 14 % (10.5-15); White Blood Count 12.5 10^3/ul (3.5-10.8)
[2018-07-05 00:10] LABS: EGFR Non-African American 63.6 (>60)
[2018-07-05] MEDS ORDERED: Cephalexin CAP* 500 MG PO ONE (01:52)
--- NOTE | 2018-07-05 01:54 | ED ---
Syncope/Near Syncope - HPI Summary HPI Summary: Patient complains of one episode of near-syncope, lightheadedness, nausea after trying to express purulence from a wound on her left pinky. Patient reports she checks her blood pressure did drop to 95/68. Denies LOC, fever, cough, sore throat, CP, SOB, N/V/D, abdominal pain, change in urine, change in BM. Denies prior history of syncope. Medical history is ulcerative colitis. - History Of Current Complaint Chief Complaint: EDSyncope Time Seen by Provider: 07/04/18 22:59 Hx Obtained From: Patient Onset/Duration: Sudden Onset Timing: Intermittent Episode Lasting Context: Witnessed Activity At Onset: At Rest Associated Head Trauma: No Aggravating Factor(s): Position Change Alleviating Factor(s): Rest Associated Signs And Symptoms: Lightheadedness - Allergies/Home Medications Allergies/Adverse Reactions: Allergies Allergy/AdvReac Type Severity Reaction Status Date / Time levofloxacin Allergy Itching Verified 07/04/18 22:46 Sulfa (Sulfonamide Allergy Rash Verified 07/04/18 22:46 Antibiotics) Home Medications: Home Medications Wellbutrin TAB* 300 mg PO DAILY 07/04/18 [History Confirmed 07/04/18] PMH/Surg Hx/FS Hx/Imm Hx Endocrine/Hematology History: Denies: Hx Diabetes Cardiovascular History: Denies: Hx Angina, Hx Congestive Heart Failure, Hx Coronary Artery Disease, Hx Hypercholesterolemia, Hx Hypertension, Hx Myocardial Infarction, Hx Valvular Heart Disease Respiratory History: Reports: Other Respiratory Problems/Disorders - cough since april, Denies: Hx Asthma, Hx Chronic Obstructive Pulmonary Disease (COPD) GI History: Reports: Hx Gastroesophageal Reflux Disease, Other GI Disorders - hx colitis History: Denies: Hx Dialysis, Hx Renal Disease Sensory History: Denies: Hx Contacts or Glasses, Hx Hearing Aid Opthamlomology History: Denies: Hx Contacts or Glasses Psychiatric History: Reports: Hx Attention Deficit Hyperactivity Disorder - Cancer History Hx Chemotherapy: No Hx Radiation Therapy: No - Surgical History Surgery Procedure, Year, and Place: total colectomy , Myomectomy 2009. multiple perirectal abscess/fistula/fissure surgeries. fibroidectomy. c- section 2004 Infectious Disease History: No Infectious Disease History: Denies: Traveled Outside the [place] in Last 30 Days - Family History Known Family History: Positive: Other - Colitis and Celiac Disease - Social History Alcohol Use: None Substance Use Type: Reports: None Smoking Status (MU): Never Smoked Tobacco Review of Systems Constitutional: Negative Eyes: Negative ENT: Negative Cardiovascular: Negative Respiratory: Negative Gastrointestinal: Negative Genitourinary: Negative Musculoskeletal: Negative Skin: Negative Neurological: Other Psychological: Normal All Other Systems Reviewed And Are Negative: Yes Physical Exam Triage Information Reviewed: Yes Vital Signs On Initial Exam: Initial Vitals Temp Pulse Resp BP Pulse Ox 97.8 F 71 16 105/81 100 07/04/18 22:42 07/04/18 22:42 07/04/18 22:42 07/04/18 22:42 07/04/18 22:42 Vital Signs Reviewed: Yes Appearance: Positive: Well-Appearing Skin: Positive: Warm Head/Face: Positive: Normal Head/Face Inspection Eyes: Positive: Normal ENT: Positive: Normal ENT inspection Neck: Positive: Supple Respiratory/Lung Sounds: Positive: Clear to Auscultation Cardiovascular: Positive: Normal Abdomen Description: Positive: Nontender Musculoskeletal: Positive: Normal Neurological: Positive: Normal Psychiatric: Positive: Normal AVPU Assessment: Alert - [place] Coma Scale Best Eye Response: 4 - Spontaneous Best Motor Response: 6 - Obeys Commands Best Verbal Response: 5 - Oriented Coma Scale Total: 15 Procedures - Incision and Drainage 1 Site: fifth digit left hand. Anesthesia: Digital Instrument(s): Scalpel Diagnostics - Vital Signs Vital Signs Temp Pulse Resp BP Pulse Ox 07/05/18 01:00 86 18 95 07/05/18 00:17 78 22 100 07/05/18 00:00 68 21 100 07/04/18 23:07 71 99 07/04/18 23:05 74 134/83 100 07/04/18 22:42 97.8 F 71 16 105/81 100 - Laboratory Lab Results: Lab Results 07/04/18 07/04/18 Range/Units 23:43 23:43 WBC 12.5 H (3.5-10.8) 10^3/ul RBC 4.48 (4.00-5.40) 10^6/ul Hgb 13.0 (12.0-16.0) g/dl Hct 39 (35-47) % MCV 87 (80-97) fL MCH 29 (27-31) pg MCHC 33 (31-36) g/dl RDW 14 (10.5-15) % Plt Count 369 (150-450) 10^3/ul MPV 7.1 L (7.4-10.4) fL Neut % (Auto) 77.8 % Lymph % (Auto) 13.6 % [place] % (Auto) 5.3 % Eos % (Auto) 2.9 % Baso % (Auto) 0.4 % Absolute Neuts (auto) 9.7 H (1.5-7.7) 10^3/ul Absolute Lymphs (auto) 1.7 (1.0-4.8) 10^3/ul Absolute Monos (auto) 0.7 (0-0.8) 10^3/ul Absolute Eos (auto) 0.4 (0-0.6) 10^3/ul Absolute Basos (auto) 0 (0-0.2) 10^3/ul Absolute Nucleated RBC 0 10^3/ul Nucleated RBC % 0 Sodium 138 (135-145) mmol/L Potassium 3.4 L (3.5-5.0) mmol/L Chloride 103 (101-111) mmol/L Carbon Dioxide 28 (22-32) mmol/L Anion Gap 7 (2-11) mmol/L BUN 22 (6-24) mg/dL Creatinine 0.94 (0.51-0.95) mg/dL Est GFR ( Amer) 76.9 (>60) Est GFR (Non-Af Amer) 63.6 (>60) BUN/Creatinine Ratio 23.4 H (8-20) Glucose 107 H (70-100) mg/dL Calcium 8.9 (8.6-10.3) mg/dL Total Bilirubin 0.30 (0.2-1.0) mg/dL AST 24 (13-39) U/L ALT 21 (7-52) U/L Alkaline Phosphatase 66 (34-104) U/L Troponin I 0.00 (<0.04) ng/mL C-Reactive Protein 5.32 (<8.01) mg/L Total Protein 6.9 (6.4-8.9) g/dL Albumin 4.0 (3.2-5.2) g/dL Globulin 2.9 (2-4) g/dL Albumin/Globulin Ratio 1.4 (1-3) Beta HCG, Quant 4.10 mIU/mL Result Diagrams: 07/04/18 23:43 07/04/18 23:43 Lab Statement: Any lab studies that have been ordered have been reviewed, and results considered in the medical decision making process. Course/Dx Course Of Treatment: Patient complains of one episode of near-syncope, lightheadedness, nausea after trying to express purulence from a wound on her left pinky. Patient reports she checks her blood pressure did drop to 95/68. Denies LOC, fever, cough, sore throat, CP, SOB, N/V/D, abdominal pain, change in urine, change in BM. Denies prior history of syncope. Medical history is ulcerative colitis. Physical exam unremarkable. Vital signs were within normal limits and stable. EKG unremarkable. Sinus rhythm. Chest x-ray negative for acute process. Labs remarkable only for dehydration. 1 L normal saline administered. Patient also had small abscess on left pinky which was incised and drained. Rx for Keflex. Symptoms likely related to either dehydration or vasovagal response to pain while trying to express purulence from abscess on pinky finger. - Diagnoses Provider Diagnoses: Near syncope, Dehydration, Abscess Discharge - Sign-Out/Discharge Documenting (check all that apply): Patient Departure - Discharge Plan Condition: Stable Disposition: HOME Prescriptions: Cephalexin CAP* [Keflex CAP*] 500 mg PO TID 6 Days #18 cap Patient Education Materials: Dehydration (ED), Abscess (ED), Abscess Follow-up (ED) Referrals: Matilda Rodriguez MD [Primary Care Provider] - Additional Instructions: Take antibiotics as directed. May wash wound with warm running water and soap. Cover when not washing. Do not submerge underwater. Drink plenty of fluids to maintain hydration. Follow-up with primary care. Return to the ED for any new or worsening symptoms. - Billing Disposition and Condition Condition: STABLE Disposition: Home
[2018-07-05 02:18] VITALS: BP 106/73
== END 2018-07-05 03:00 | disposition home or self-care (01) ==
LOC: ED 22:39
DX: R55 Syncope and collapse (principal); E86.0 Dehydration; L02.512 Cutaneous abscess of left hand; Z88.1 Allergy status to other antibiotic agents; Z88.2 Allergy status to sulfonamides
CPT/HCPCS: 10060; 36415; 71045; 80053; 84484; 84702; 85025; 86140; 93005; 96360; 99283; A9270-GY

== ENCOUNTER 2018-07-10 13:37 | Emergency (ER) | payer BC ==
[2018-07-10 13:57] VITALS: BP 130/84
--- NOTE | 2018-07-10 14:18 | UC ---
Headache HPI - HPI Summary HPI Summary: 47 yo female presents with headache for the last 4 days. She tells me that she was in the ER about a week ago for vaso-vagal syncope and is currently on keflex for a finger skin abscess. Over the last 4 days has had a right sided headache radiating from her right frontal area to her right eye/temporal region/ right neck that causes her right eye to twitch. Worse with movement of head. She says she has had this a couple times in the past, but never this bad and tylenol usually helps but is not helping this time. She does have slight dizziness. Denies injury, fever, recent illness, vision changes, sinus symptoms , sore throat, SOB, chest pain, n/v. - History Of Current Complaint Chief Complaint: UCHeadache Stated Complaint: HEADACHE Time Seen by Provider: 07/10/18 14:18 Hx Obtained From: Patient Hx Last Menstrual Period: 1 wk ago Onset/Duration: Gradual Onset Initially Headache Was: Moderate Currently Pain Is: Severe Pain Intensity: 8 Pain Scale Used: 0-10 Numeric - Allergies/Home Medications Allergies/Adverse Reactions: Allergies Allergy/AdvReac Type Severity Reaction Status Date / Time levofloxacin Allergy Itching Verified 07/10/18 13:46 metronidazole [From Flagyl] Allergy Rash Verified 07/10/18 13:46 Sulfa (Sulfonamide Allergy Rash Verified 07/10/18 13:46 Antibiotics) Home Medications: Home Medications Omeprazole CAP* [Prilosec CAP* 20 MG] 20 mg PO DAILY 07/10/18 [History Confirmed 07/10/18] buPROPion TAB* [Wellbutrin TAB*] 75 mg PO QID 07/10/18 [History Confirmed ] PMH/Surg Hx/FS Hx/Imm Hx GI/ History: Gastroesophageal Reflux, Other - UC Psychological History: Anxiety, Depression - Surgical History Surgical History: Yes Surgery Procedure, Year, and Place: total colectomy , Myomectomy 2009. multiple perirectal abscess/fistula/fissure surgeries. fibroidectomy. c- section 2004 - Family History Known Family History: Positive: Other - Colitis and Celiac Disease - Social History Occupation: Employed Full-time Lives: With Family Alcohol Use: None Substance Use Type: None Smoking Status (MU): Never Smoked Tobacco - Immunization History Most Recent Influenza Vaccination: unknown Most Recent Pneumonia Vaccination: never Review of Systems All Other Systems Reviewed And Are Negative: Yes Constitutional: Positive: Negative Skin: Positive: Negative Eyes: Positive: Negative ENT: Positive: Negative Respiratory: Positive: Negative Cardiovascular: Positive: Negative Gastrointestinal: Positive: Negative Motor: Positive: Negative Musculoskeletal: Positive: Negative Neurological: Positive: Headache Psychological: Positive: Negative Physical Exam - Summary Physical Exam Summary: GENERAL: NAD. WDWN. No pain distress. SKIN: No rashes, sores, ulcers, masses, lesions. HEENT: Head: AT/NC Eyes: PERRLA. EOM intact. Conjunctiva clear without inflammation or discharge. Ears: Hearing grossly normal. TMs intact, no bulging, erythema, or edema. Nose: Nasal mucosa pink and moist. NTTP maxillary and frontal sinus. Throat: Posterior oropharynx without exudates, erythema, or tonsillar enlargement. Uvula midline. NECK: Supple. Nontender. No lymphadenopathy. CHEST: CTAB. No r/r/w. No accessory muscle use. Breathing comfortably and in no distress. CV: RRR. Without m/r/g. Pulses intact. Brisk cap refill. No carotid bruit or JVD appreciated. No temporal artery TTP. MSK: FROM in B/L UEs and LEs with symmetric strength. Spurlings negative. Unable to reproduce TTP on right side of neck. NEURO: A&Ox3. 3 word recall, remote, recent memory, ability to follow 2-step directions, and attention intact. CN: II: Peripheral goldstein intact. Vision normal. III, IV, : EOMI. No nystagmus. PERRLA. V: Sensations intact and symmetric. Opens mouth and clenches teeth. VII: No facial asymmetry. Forehead wrinkles. Grins, shuts eyes, frowns, puffs cheeks. VIII: Hearing intact to finger rub. IX, X: Swallows and coughs. Uvula midline. XI: Shrugs shoulders. Turns head against resistance. XII: No tongue deviation [id number] are intact. Gait with normal base. Romberg: maintains balance, no pronator drift. Normal speech. No facial drooping. PSYCH: Age appropriate behavior. Triage Information Reviewed: Yes Vital Signs: Initial Vital Signs Temp 99.3 F 07/10/18 13:48 Pulse 95 07/10/18 13:48 Resp 18 07/10/18 13:48 BP 130/84 07/10/18 13:48 Pulse Ox 97 07/10/18 13:48 Vital Signs Reviewed: Yes Headache Course/Dx - Course Course Of Treatment: Exam unremarkable. Given her right sided headache radiating into her right neck there is some degree of concern for temporal arteritis. Unfortunately, she is unable to take NSAIDs due to her UC. I discussed this with the pt and she is most interested in finding out an answer to her discomfort today, therefore I suggested that she go to the ER for potential labwork and advanced imaging. - Differential Dx/Diagnosis Provider Diagnosis: Right-sided headache Discharge - Sign-Out/Discharge Documenting (check all that apply): Patient Departure All imaging exams completed and their final reports reviewed: No Studies - Discharge Plan Condition: Stable Disposition: HOME-RECOMMEND TO ED Referrals: Matilda Rodriguez MD [Primary Care Provider] - Additional Instructions: Please go to the ER for further evaluation of your headache and dizziness - Billing Disposition and Condition Condition: STABLE Disposition: Home-Recommend to ED
== END 2018-07-10 14:40 | disposition home health service (06) ==
LOC: UCEAST 13:37
DX: R51 Headache (principal); K21.9 Gastro-esophageal reflux disease without esophagitis; F32.9 Major depressive disorder, single episode, unspecified; Z79.899 Other long term (current) drug therapy; Z88.2 Allergy status to sulfonamides; Z88.1 Allergy status to other antibiotic agents
CPT/HCPCS: 99212; G0463

== ENCOUNTER 2018-07-10 16:26 | Emergency (ER) | payer BC ==
[2018-07-10] MEDS ORDERED: Metoclopramide IV* 5 MG/ML 2 ML VIAL IV SLOW PU ONE (19:09)
[2018-07-10] MEDS ORDERED: Magnesium Sulfate 2 GM IV* 2 GM/50 ML BAG IVPB ONE (19:09)
[2018-07-10] MEDS ORDERED: Dexamethasone IV* 4 MG/ML 1 ML (4 MG) IV SLOW PU ONE (19:09)
[2018-07-10 19:20] LABS: ABS Basophils 0.1 10^3/ul (0-0.2); ABS Eosinophils 0.3 10^3/ul (0-0.6); ABS Lymphocytes 2.4 10^3/ul (1.0-4.8); ABS Monocytes 0.6 10^3/ul (0-0.8); ABS Neutrophils 4.5 10^3/ul (1.5-7.7); ABS Nucleated RBC 0 10^3/ul; Eosinophil % 3.7 %; Hematocrit 39 % (35-47); Hemoglobin 13.2 g/dl (12.0-16.0); Lymphocyte % 30.9 %; Mean Corpuscular HGB Conc 34 g/dl (31-36); Mean Corpuscular Hemoglobin 29 pg (27-31); Mean Corpuscular Volume 86 fL (80-97); Mean Platelet Volume 6.8 fL (7.4-10.4); Nucleated Red Blood Cells % 0.1; Platelet Count 416 10^3/ul (150-450); Red Blood Count 4.58 10^6/ul (4.00-5.40); Red Cell Distribution Width 14 % (10.5-15); White Blood Count 7.9 10^3/ul (3.5-10.8)
[2018-07-10 19:27] LABS: Activated Partial Thrombo Time 30.5 seconds (26.0-36.3); INR 0.97 (0.77-1.02)
--- NOTE | 2018-07-10 19:27 | ED ---
Headache - HPI Summary HPI Summary: This patient is a 47 year old F presenting to [facility] with a chief complaint of constant headaches since 4 days ago. The patient has a Hx of migraines but she says it typically does not feel like this. The patient has a right temporal headache that radiates to right occipital. She states the pain radiates to the back of her neck. The patient denies blurred vision and photophobia. The patient has a FHx of aneurysm in her mother. One month ago she presented to [facility] for a pre-syncopal episode. The patient has a Hx of sleep apnea and is sometimes congested in the mornings. She rates her pain 8/10 in severity. - History Of Current Complaint Chief Complaint: EDHeadache Stated Complaint: HEADACHE Time Seen by Provider: 07/10/18 19:04 Hx Obtained From: Patient Onset/Duration: Started weeks ago Initially Headache Was: Moderate Currently Pain Is: Current Pain Scale(0-10)= - 8, Moderate Timing: Constant Location of Headache: Temporal, Occipital Aggravating Factor: Nothing Allevating Factors: Medication - Tylenol - Allergies/Home Medications Allergies/Adverse Reactions: Allergies Allergy/AdvReac Type Severity Reaction Status Date / Time levofloxacin Allergy Itching Verified 07/16/18 12:42 metronidazole [From Flagyl] Allergy Rash Verified 07/16/18 12:42 Sulfa (Sulfonamide Allergy Rash Verified 07/16/18 12:42 Antibiotics) PMH/Surg Hx/FS Hx/Imm Hx Endocrine/Hematology History: Denies: Hx Diabetes Cardiovascular History: Denies: Hx Angina, Hx Congestive Heart Failure, Hx Coronary Artery Disease, Hx Hypercholesterolemia, Hx Hypertension, Hx Myocardial Infarction, Hx Valvular Heart Disease Respiratory History: Reports: Other Respiratory Problems/Disorders - cough since april, Denies: Hx Asthma, Hx Chronic Obstructive Pulmonary Disease (COPD) GI History: Reports: Hx Gastroesophageal Reflux Disease, Other GI Disorders - hx colitis History: Denies: Hx Dialysis, Hx Renal Disease Sensory History: Denies: Hx Contacts or Glasses, Hx Hearing Aid Opthamlomology History: Denies: Hx Contacts or Glasses Psychiatric History: Reports: Hx Attention Deficit Hyperactivity Disorder - Cancer History Hx Chemotherapy: No Hx Radiation Therapy: No - Surgical History Surgery Procedure, Year, and Place: total colectomy , Myomectomy 2009. multiple perirectal abscess/fistula/fissure surgeries. fibroidectomy. c- section 2004 Infectious Disease History: No Infectious Disease History: Denies: Traveled Outside the [place] in Last 30 Days - Family History Known Family History: Positive: Other - Colitis and Celiac Disease. Aneurysm in mother. - Social History Alcohol Use: None Substance Use Type: Reports: None Smoking Status (MU): Never Smoked Tobacco Review of Systems Negative: Fever, Chills Negative: Photophobia, Blurred Vision, Erythema Negative: Sore Throat Negative: Chest Pain Negative: Shortness Of Breath, Cough Negative: Abdominal Pain, Vomiting, Nausea Negative: dysuria, hematuria Negative: Myalgia, Edema Neurological: Other - Neg: Dizziness Positive: Headache All Other Systems Reviewed And Are Negative: No Physical Exam - Summary Physical Exam Summary: Constitutional: Well-developed, Well-nourished, Alert. (-) Distressed Skin: Warm, Dry HENT: Normocephalic; Atraumatic Eyes: Conjunctiva normal Neck: Musculoskeletal ROM normal neck. (-) JVD, (-) Stridor, (-) Tracheal deviation Cardio: Rhythm regular, rate normal, Heart sounds normal; Intact distal pulses; The pedal pulses are 2+ and symmetric. Radial pulses are 2+ and symmetric. (-) Murmur Pulmonary/Chest wall: Effort normal. (-) Respiratory distress, (-) Wheezes, (-) Rales Abd: Soft, (-) epigastric tenderness, (-) Distension, (-) Guarding, (-) Rebound Musculoskeletal: (-) Edema Lymph: (-) Cervical adenopathy Neuro: Alert, Oriented x3. Headache right temporal radiates to occipital. Psych: Mood and affect Normal Triage Information Reviewed: Yes Vital Signs On Initial Exam: Initial Vitals Temp Pulse Resp BP Pulse Ox 98.6 F 87 18 140/98 97 07/10/18 16:32 07/10/18 16:32 07/10/18 16:32 07/10/18 16:32 07/10/18 16:32 Vital Signs Reviewed: Yes Diagnostics - Vital Signs Vital Signs Temp Pulse Resp BP Pulse Ox 07/10/18 16:32 98.6 F 87 18 140/98 97 - Laboratory Lab Results: Lab Results 07/10/18 Range/Units 19:06 WBC 7.9 (3.5-10.8) 10^3/ul RBC 4.58 (4.00-5.40) 10^6/ul Hgb 13.2 (12.0-16.0) g/dl Hct 39 (35-47) % MCV 86 (80-97) fL MCH 29 (27-31) pg MCHC 34 (31-36) g/dl RDW 14 (10.5-15) % Plt Count 416 (150-450) 10^3/ul MPV 6.8 L (7.4-10.4) fL Neut % (Auto) 56.4 % Lymph % (Auto) 30.9 % [place] % (Auto) 8.2 % Eos % (Auto) 3.7 % Baso % (Auto) 0.8 % Absolute Neuts (auto) 4.5 (1.5-7.7) 10^3/ul Absolute Lymphs (auto) 2.4 (1.0-4.8) 10^3/ul Absolute Monos (auto) 0.6 (0-0.8) 10^3/ul Absolute Eos (auto) 0.3 (0-0.6) 10^3/ul Absolute Basos (auto) 0.1 (0-0.2) 10^3/ul Absolute Nucleated RBC 0 10^3/ul Nucleated RBC % 0.1 Result Diagrams: 07/10/18 19:06 07/10/18 19:06 Lab Statement: Any lab studies that have been ordered have been reviewed, and results considered in the medical decision making process. Re-Evaluation - Re-Evaluation First Eval Re-Evaluation Time: 21:08 Change: Improved Comment: Pt states mild improvement, however her headache is still an 8/10. Second Eval Re-Evaluation Time: 22:13 Change: Improved Comment: Recieved medication 5 minutes ago. Pt states pain has slightly improved to 7/10. Goals are resolution of headache and negative CT scan. Strong suspicion of migraine. Sign-out to Dr. Haider. Headache Course/Dx - Course Course Of Treatment: This patient is a 47 year old F presenting to [facility] with a chief complaint of constant headaches since 4 days ago. The patient has a Hx of migraines but she says it typically does not feel like this. The patient has a right temporal headache that radiates to right occipital. Pt states pain has slightly improved to 7/10. Goals are resolution of headache and negative CT scan. Strong suspicion of migraine. Sign-out to Dr. Haider pending read of CT scan at shift change. - Diagnoses Provider Diagnoses: Headache Discharge - Sign-Out/Discharge Documenting (check all that apply): Sign-Out Patient Signing out patient TO: Per Haider - Pending CT read. - Discharge Plan Condition: Stable Disposition: HOME Referrals: Matilda Rodriguez MD [Primary Care Provider] - 3 Days Amaury Velasquez MD [Medical Doctor] - 3 Days Additional Instructions: Follow up with Dr. Velasquez. Return to the ED if you experience any new or worsening symptoms. - Billing Disposition and Condition Condition: STABLE Disposition: Home - Attestation Statements Document Initiated by Orlando: Yes Documenting Scribe: Juarez Vivar Provider For Whom Orlando is Documenting (Include Credential): Alex Arboleda MD Scribe Attestation: Juarez Baez scribed for Alex Arboleda MD on 07/17/18 at 1208. Scribe Documentation Reviewed: Yes Provider Attestation: The documentation as recorded by the Juarez gomez accurately reflects the service I personally performed and the decisions made by , Alex Arboleda MD Status of Scribe Document: Viewed
[2018-07-10] MEDS ORDERED: NS 0.9% 1000 ML* 1,000 ML IV ONE (19:31)
[2018-07-10 19:37] LABS: Albumin 4.2 g/dL (3.2-5.2); Albumin/Globulin Ratio 1.4 (1-3); BUN/Creatinine Ratio 17.5 (8-20); C Reactive Protein 4.84 mg/L (<8.01); Calcium 9.5 mg/dL (8.6-10.3); EGFR Non-African American 76.6 (>60); Globulin 3.1 g/dL (2-4); Potassium 3.6 mmol/L (3.5-5.0); Total Bilirubin 0.4 mg/dL (0.2-1.0); Total Protein 7.3 g/dL (6.4-8.9)
[2018-07-10 19:43] LABS: HCG Pregnancy 3.58 mIU/mL
[2018-07-10] MEDS ORDERED: Iohexol 350* (CONTRAST) 500 ML MDV IV ONE (20:07)
[2018-07-10] MEDS ORDERED: Ketorolac INJ* 30 MG/ML 1 ML VIAL IV PUSH ONE (21:08)
[2018-07-10] MEDS ORDERED: PROCHLORPERAZINE INJ 5 MG/ML 2 ML VIAL IV ONE (21:08)
--- NOTE | 2018-07-10 22:27 | ED ---
Progress - Progress Note Progress Note: This patient was signed out from Dr. Arboleda to Dr. Haider at shift change pending CTA head/neck report. Head/neck CTA impression: small 1 mm outpouching of the cavernous portion of left internal carotid artery laterally which may represent a small focal ectasia versus infundibulum of a vessel. Possibility of a small aneurysm not excluded. No acute intracranial abnormality. ED physician has reviewed this imaging report. The patient will be discharged home and was instructed to follow up with Dr. Velasquez. The patient is agreeable with this plan. Dx: Headache Re-Evaluation - Re-Evaluation First Eval Re-Evaluation Time: 23:15 Change: Improved Comment: Patient is ready for discharge. Second Eval Re-Evaluation Time: 22:13 Change: Improved Comment: Recieved medication 5 minutes ago. Pt states pain has slightly improved to 7/10. Goals are resolution of headache and negative CT scan. Strong suspicion of migraine. Sign-out to Dr. Haider. Course/Dx - Course Course Of Treatment: This patient was signed out from Dr. Arboleda to Dr. Haider at shift change pending CTA head/neck report. Head/neck CTA impression: small 1 mm outpouching of the cavernous portion of left internal carotid artery. laterally which may represent a small focal ectasia versus infundibulum of a. vessel. Possibility of a small aneurysm not excluded. No acute intracranial abnormality. The patient will be discharged home and was instructed to follow up with Dr. Velasquez. The patient is agreeable with this plan. Dx: Headache - Diagnoses Provider Diagnoses: Headache - Provider Notifications Discussed Care Of Patient With: Amaury Velasquez Time Discussed With Above Provider: 23:10 Instructed by Provider To: Other - After discussing the patient he patient will be referred to Dr. Velasquez. Discharge - Sign-Out/Discharge Documenting (check all that apply): Patient Departure - DC, Receiving Sign-Out Receiving patient FROM: Alex Arboleda - Discharge Plan Condition: Stable Disposition: HOME Referrals: Amaury Velasquez MD [Medical Doctor] - 3 Days Matilda Rodriguez MD [Primary Care Provider] - 3 Days Additional Instructions: Follow up with Dr. Velasquez. Return to the ED if you experience any new or worsening symptoms. - Billing Disposition and Condition Condition: STABLE Disposition: Home - Attestation Statements Document Initiated by Scribe: Yes Documenting Scribe: Vasile Lucia Provider For Whom Scribe is Documenting (Include Credential): Per Haider MD Scribe Attestation: IVasile, scribed for Per Haider MD on 07/10/18 at 2332. Scribe Documentation Reviewed: Yes Provider Attestation: The documentation as recorded by the Vasile gomez accurately reflects the service I personally performed and the decisions made by me, Per Haider MD Status of Scribe Document: Viewed
[2018-07-10 23:29] VITALS: BP 114/76
== END 2018-07-10 23:28 | disposition home or self-care (01) ==
LOC: ED 16:26
DX: R51 Headache (principal); Z88.2 Allergy status to sulfonamides; Z87.898 Personal history of other specified conditions; F90.9 Attention-deficit hyperactivity disorder, unspecified type; K21.9 Gastro-esophageal reflux disease without esophagitis; G47.30 Sleep apnea, unspecified
CPT/HCPCS: 36415; 70496; 70498; 80053; 84702; 85025; 85610; 85730; 86140; 96361; 96374; 96375; 99283; J0780; J1100; J1885; J2765; J3475; Q9967

== ENCOUNTER 2018-07-13 07:35 | Emergency (ER) | payer BC ==
--- NOTE | 2018-07-13 08:06 | ED ---
Headache - HPI Summary HPI Summary: This patient is a 47 year old F presenting to [facility] accompanied by her with a chief complaint of a persistent headache for the last week. She was seen at 3 days ago and states since she has not had any relief. The patient rates the pain 10/10 in severity current and at its worst its a 15. She states it will get worse without any known trigger. Patient reports chills and intermittent photophobia. She also c/o nausea without vomiting. She has right sided neck pain without radiation into her back. Patient denies fever, SOB, CP , visual changes, sore throat, URI sx, gait disturbances, LOC, and trouble moving extremities. She states she used to get migraines when she was a teenager centered around menstruation but she has not had one since. This one began gradually throughout the day a week ago and she attempted to treat with Tylenol without significant relief. She describes the onset as mild with a gradual increase mostly on the right side starting at the occiput and spreading into her right anabaptism and behind her eye. It was intermittent until 3 days ago at this point it became constant. Her mother has a hx of acoustic neuroma and aneurysm. Pmhx of colitis. She called neurology today and was unable to get in so she came into the ED. Two weeks ago she did have a vasovagal episode and was seen for this. - History Of Current Complaint Chief Complaint: EDHeadache Stated Complaint: Headache Time Seen by Provider: 07/13/18 07:48 Hx Obtained From: Patient Onset/Duration: Started weeks ago - 1, Still Present Initially Headache Was: Initial Pain Scale(0-10)= - 2 Currently Pain Is: Current Pain Scale(0-10)= - 10 Timing: Constant Location of Headache: Temporal - r, Occipital - r Aggravating Factor: Other - unknown Associated Signs And Symptoms: Negative - fever, SOB, CP, visual changes, sore throat, URI sx, - Allergies/Home Medications Allergies/Adverse Reactions: Allergies Allergy/AdvReac Type Severity Reaction Status Date / Time levofloxacin Allergy Itching Verified 07/13/18 07:42 metronidazole [From Flagyl] Allergy Rash Verified 07/13/18 07:42 Sulfa (Sulfonamide Allergy Rash Verified 07/13/18 07:42 Antibiotics) Home Medications: Home Medications Omeprazole CAP* [Prilosec CAP* 20 MG] 20 mg PO DAILY 07/13/18 [History Confirmed 07/13/18] PMH/Surg Hx/FS Hx/Imm Hx Endocrine/Hematology History: Denies: Hx Diabetes Cardiovascular History: Denies: Hx Angina, Hx Atrial Fibrillation, Hx Cardiac Arrest, Hx Congestive Heart Failure, Hx Coronary Artery Disease, Hx Hypercholesterolemia, Hx Hypertension, Hx Myocardial Infarction, Hx Valvular Heart Disease Respiratory History: Reports: Other Respiratory Problems/Disorders - cough since april, Denies: Hx Asthma, Hx Chronic Obstructive Pulmonary Disease (COPD) GI History: Reports: Hx Gastroesophageal Reflux Disease, Other GI Disorders - hx colitis History: Denies: Hx Dialysis, Hx Renal Disease Sensory History: Denies: Hx Contacts or Glasses, Hx Hearing Aid Opthamlomology History: Denies: Hx Contacts or Glasses Neurological History: Reports: Hx Headaches, Hx Migraine Psychiatric History: Reports: Hx Attention Deficit Hyperactivity Disorder - Cancer History Hx Chemotherapy: No Hx Radiation Therapy: No - Surgical History Surgery Procedure, Year, and Place: total colectomy , Myomectomy 2009. multiple perirectal abscess/fistula/fissure surgeries. fibroidectomy. c- section 2004 Infectious Disease History: No Infectious Disease History: Denies: Traveled Outside the [place] in Last 30 Days - Family History Known Family History: Positive: Other - Colitis and Celiac Disease. Aneurysm in mother. - Social History Alcohol Use: Rare Substance Use Type: Reports: None Smoking Status (MU): Never Smoked Tobacco Review of Systems Positive: Chills. Negative: Fever Positive: Photophobia - intermitent . Negative: Blurred Vision ENT: Negative - URI sx Negative: Sore Throat Negative: Chest Pain Negative: Shortness Of Breath Positive: Nausea. Negative: Vomiting Positive: Other - right sided neck pain Neurological: Negative - gait disturbances, LOC, and trouble moving extremities Positive: Headache All Other Systems Reviewed And Are Negative: Yes Physical Exam - Summary Physical Exam Summary: General: well-appearing, mild to moderate pain distress Skin: warm, color reflects adequate perfusion, dry Head: normal Eyes: EOMI, FELICITA ENT: normal Neck: supple, nontender, good ROM without midline or paraspinal tenderness Respiratory: CTA, breath sounds present Cardiovascular: RRR Abdomen: soft, nontender Bowel: present Musculoskeletal: normal, strength/ROM intact Neurological: sensory/motor intact, A&O x3, the location of the headache is in the right posterior neck and into the right side of the head. There is no neurological deficits. Psychological: affect/mood appropriate Triage Information Reviewed: Yes Vital Signs On Initial Exam: Initial Vitals Temp Pulse Resp BP Pulse Ox 98.6 F 81 18 165/95 98 07/13/18 07:37 07/13/18 07:37 07/13/18 07:37 07/13/18 07:37 07/13/18 07:37 Vital Signs Reviewed: Yes Diagnostics - Vital Signs Vital Signs Temp Pulse Resp BP Pulse Ox 07/13/18 07:37 98.6 F 81 18 165/95 98 - Laboratory Result Diagrams: 07/13/18 08:31 07/13/18 08:31 Lab Statement: Any lab studies that have been ordered have been reviewed, and results considered in the medical decision making process. Re-Evaluation - Re-Evaluation First Eval Re-Evaluation Time: 11:20 Change: Improved Comment: There has been a mild improvement in her larry with medications. Headache Course/Dx - Course Course Of Treatment: Patient was seen in the emergency department by neurology. Patient was given some medications with mild relief of the headache however overall the pain is still moderate to severe. Therefore patient will be admitted by medicine. - Diagnoses Provider Diagnoses: Intractable headache - Physician Notifications Discussed Care Of Patient With: Edwin Vogt Time Discussed With Above Provider: 08:07 Instructed by Provider To: Other - She has agreed to come see the patient, she also suggested to give the patient 2 grams of magnesium and 200ccs of fluid. [id number] Dr Vogt saw the patient in the ED and reviewed her most recent CTA. She is recommended treating with toradol, Reglan, and IV fluids. If she improves she will go home with fioricet and if not admission will be considered. 11:00 Dr Wahl has accepted the patient for admission. Discharge - Sign-Out/Discharge Documenting (check all that apply): Patient Departure - admitted - Discharge Plan Condition: Stable Disposition: ADMITTED TO [facility] Referrals: Matilda Rodriguez MD [Primary Care Provider] - - Billing Disposition and Condition Condition: STABLE Disposition: Admitted to [facility] - Attestation Statements Document Initiated by Scribe: Yes Documenting Scribe: Lai Johnson Provider For Whom Scribe is Documenting (Include Credential): MD Bowen Powellibe Attestation: I, Lai Johnson , scribed for You Leon MD on 07/13/18 at 1127. Scribe Documentation Reviewed: Yes Provider Attestation: The documentation as recorded by the Lai gomez accurately reflects the service I personally performed and the decisions made by me, You Leon MD Status of Scribe Document: Viewed
[2018-07-13] MEDS ORDERED: Magnesium Sulfate IV* 0.5 GM/ML 2 ML VIAL (1 GM) IVPB ONE (08:18)
[2018-07-13 08:43] LABS: ABS Basophils 0.1 10^3/ul (0-0.2); ABS Eosinophils 0.2 10^3/ul (0-0.6); ABS Lymphocytes 1.2 10^3/ul (1.0-4.8); ABS Monocytes 0.5 10^3/ul (0-0.8); ABS Neutrophils 7.1 10^3/ul (1.5-7.7); ABS Nucleated RBC 0 10^3/ul; Eosinophil % 2.2 %; Hematocrit 45 % (35-47); Lymphocyte % 13.7 %; Mean Corpuscular HGB Conc 34 g/dl (31-36); Mean Corpuscular Hemoglobin 29 pg (27-31); Mean Corpuscular Volume 87 fL (80-97); Mean Platelet Volume 7.2 fL (7.4-10.4); Nucleated Red Blood Cells % 0; Platelet Count 495 10^3/ul (150-450); Red Cell Distribution Width 14 % (10.5-15); White Blood Count 9.1 10^3/ul (3.5-10.8)
[2018-07-13 08:47] LABS: Activated Partial Thrombo Time 29.2 seconds (26.0-36.3); INR 0.87 (0.77-1.02)
[2018-07-13] MEDS ORDERED: MAGNESIUM SULFATE IVPB ONE (09:00)
[2018-07-13] MEDS ORDERED: NS 0.9% IVPB ONE (09:00)
[2018-07-13 09:02] LABS: Albumin 4.7 g/dL (3.2-5.2); Albumin/Globulin Ratio 1.5 (1-3); BUN/Creatinine Ratio 14.1 (8-20); C Reactive Protein 3.91 mg/L (<8.01); EGFR Non-African American 78.8 (>60); Globulin 3.2 g/dL (2-4); Potassium 4.1 mmol/L (3.5-5.0); Total Bilirubin 0.5 mg/dL (0.2-1.0); Total Protein 7.9 g/dL (6.4-8.9)
[2018-07-13 09:26] LABS: TSH (Thyroid Stimulating Horm) 1.83 mcIU/mL (0.34-5.60)
[2018-07-13] MEDS ORDERED: Metoclopramide IV* 5 MG/ML 2 ML VIAL IV PRN (09:45)
[2018-07-13] MEDS ORDERED: Ketorolac INJ* 30 MG/ML 1 ML VIAL IV PUSH PRN (09:45)
--- NOTE | 2018-07-13 10:55 | CONSULT ---
Consult Consult: 07/13/2018 8.20am NEUROLOGY CONSULTATION CC: headache HPI: This is a 47 yr old woman with history of migraines headache during her teenage years centered around her menstrual cycle presenting with an ongoing headache. Per the patient the headache started about one week ago. She presented to the ED on 07/10/2018 when a CTA of the head was performed and she was treated with steroids and toradol with relief, however the headache recurred and she was not able to obtain an outpatient neurology appointment therefore she presented to the ED. She did take some advil at home without relief. The headache is located in the right retroorbital and parietal region radiating to the occiput. It is throbbing in nature and constant. It is not provoked by change in position or worse at any particular time of day. She is mildly nauseous with any episodes of emesis. There is associated photophobia and phonophobia. There is no neck stiffness. The headache onset was gradual. She denied a thunderclap quality to the headache. She did present to the ED on 07/04/2018 and was diagnosed with an episode of vasovagal syncope and was given fluids. She denies numbness, tingling, weakness or difficulty with gait. Review of Systems: The patient's review of systems questionnaire was reviewed and there are no additional pertinent positives. PMH: Migraines in teenage years Allergies levofloxacin Allergy (Verified 07/13/18 07:42) Itching metronidazole [From Flagyl] Allergy (Verified 07/13/18 07:42) Rash Sulfa (Sulfonamide Antibiotics) Allergy (Verified 07/13/18 07:42) Rash Home Medications Cephalexin CAP* [Keflex CAP*] 500 mg PO TID 6 Days #18 cap 07/05/18 [Rx Confirmed 07/13/18] buPROPion TAB* [Wellbutrin TAB*] 75 mg PO QID 07/10/18 [History Confirmed ] Omeprazole CAP* [Prilosec CAP* 20 MG] 20 mg PO DAILY 07/13/18 [History Confirmed 07/13/18] FH: Mother had an aneurysm Vital Signs Temp 98.6 F 07/13/18 07:37 Pulse 76 07/13/18 10:00 Resp 18 07/13/18 07:37 BP 149/88 07/13/18 09:39 Pulse Ox 99 07/13/18 10:00 General: NAD, NCAT CVS/Resp: regular rate, breathing comfortably Mental Status: attentive/oriented/fluent CN: PERRLA, EOMI, V1=V2=V3, face symmetrical, hearing grossly intact, palate midline, SCM/trapezius strength intact bilaterally, tongue midline Motor: strength intact, normal tone/bulk, bilaterally in UE/LEs Sensory: grossly intact LT in arms, legs, and trunk Coord/ Gait: intact FFM/ FTN/SIRISHA in UE/LEs Reflexes: intact symmetrically in UE/LEs Laboratory: Laboratory Results WBC 9.1 10^3/ul (3.5-10.8) 07/13/18 08:31 RBC 5.10 10^6/ul (4.00-5.40) 07/13/18 08:31 Hgb 15.0 g/dl (12.0-16.0) 07/13/18 08:31 Hct 45 % (35-47) 07/13/18 08:31 MCV 87 fL (80-97) 07/13/18 08:31 MCH 29 pg (27-31) 07/13/18 08:31 MCHC 34 g/dl (31-36) 07/13/18 08:31 RDW 14 % (10.5-15) 07/13/18 08:31 Plt Count 495 10^3/ul (150-450) H D 07/13/18 08:31 MPV 7.2 fL (7.4-10.4) L 07/13/18 08:31 Neut % (Auto) 78.2 % 07/13/18 08:31 Lymph % (Auto) 13.7 % 07/13/18 08:31 Harding % (Auto) 5.2 % 07/13/18 08:31 Eos % (Auto) 2.2 % 07/13/18 08:31 Baso % (Auto) 0.7 % 07/13/18 08:31 Absolute Neuts (auto) 7.1 10^3/ul (1.5-7.7) 07/13/18 08:31 Absolute Lymphs (auto) 1.2 10^3/ul (1.0-4.8) 07/13/18 08:31 Absolute Monos (auto) 0.5 10^3/ul (0-0.8) 07/13/18 08:31 Absolute Eos (auto) 0.2 10^3/ul (0-0.6) 07/13/18 08:31 Absolute Basos (auto) 0.1 10^3/ul (0-0.2) 07/13/18 08:31 Absolute Nucleated RBC 0 10^3/ul 07/13/18 08:31 Nucleated RBC % 0 07/13/18 08:31 INR (Anticoag Therapy) 0.87 (0.77-1.02) 07/13/18 08:31 APTT 29.2 seconds (26.0-36.3) 07/13/18 08:31 Sodium 138 mmol/L (135-145) 07/13/18 08:31 Potassium 4.1 mmol/L (3.5-5.0) 07/13/18 08:31 Chloride 100 mmol/L (101-111) L 07/13/18 08:31 Carbon Dioxide 26 mmol/L (22-32) 07/13/18 08:31 Anion Gap 12 mmol/L (2-11) H 07/13/18 08:31 BUN 11 mg/dL (6-24) 07/13/18 08:31 Creatinine 0.78 mg/dL (0.51-0.95) 07/13/18 08:31 Est GFR ( Amer) 95.4 (>60) 07/13/18 08:31 Est GFR (Non-Af Amer) 78.8 (>60) 07/13/18 08:31 BUN/Creatinine Ratio 14.1 (8-20) 07/13/18 08:31 Glucose 91 mg/dL (70-100) 07/13/18 08:31 Lactic Acid 1.8 mmol/L (0.5-2.0) 07/13/18 08:31 Calcium 10.0 mg/dL (8.6-10.3) 07/13/18 08:31 Magnesium 2.0 mg/dL (1.9-2.7) 07/13/18 08:31 Total Bilirubin 0.50 mg/dL (0.2-1.0) 07/13/18 08:31 AST 26 U/L (13-39) 07/13/18 08:31 ALT 22 U/L (7-52) 07/13/18 08:31 Alkaline Phosphatase 74 U/L (34-104) 07/13/18 08:31 C-Reactive Protein 3.91 mg/L (<8.01) 07/13/18 08:31 Total Protein 7.9 g/dL (6.4-8.9) 07/13/18 08:31 Albumin 4.7 g/dL (3.2-5.2) 07/13/18 08:31 Globulin 3.2 g/dL (2-4) 07/13/18 08:31 Albumin/Globulin Ratio 1.5 (1-3) 07/13/18 08:31 TSH 1.83 mcIU/mL (0.34-5.60) 07/13/18 08:31 Imaging: CTA head IMPRESSION: small 1 mm outpouching of the cavernous portion of left internal carotid artery laterally which may represent a small focal ectasia versus infundibulum of a vessel. Possibility of a small aneurysm not excluded. CTA neck IMPRESSION: No acute intracranial abnormality. Assessment:47 yr old woman presenting with a refractory headache, gradual onset with a normal neurological exam. Features indicative of a migraine headache. Recommendations: Toradol 30 IV Q6 x2 Reglan 10 IV Q6 x2 Mg 2g in 200cc over 2 hrs x2 IVF If no resolution of headache may consider depakote 15mg/kg x1 May discharge home with 10 pills of fioricet to use as needed until seen in the outpatient neurology clinic Thank you for including me in the care of this patient. Case discussed with treatment team. As per protocol, I discussed available results of testing and plan of care with the patient or advocate, who agrees to the plan. Face time for evaluation, education, counseling was >50% of time spent on unit: for 35 minutes.
[2018-07-13 13:26] VITALS: BP 120/83
--- NOTE | 2018-07-13 15:48 | CONSULT ---
Subjective Date of Service: 07/13/18 Interval History: Mrs. Mcwilliams is a 47 year old female with a PMH significant for migraines as a teenager, ulcerative colitis s/p colectomy, GERD who presented to the ED with a 1 week history of headache. The headache was initially mild at its onset, but gradually worsened to 10/10 throbbing pain. It was initially intermittent, but has been constant for the past three days. The headache was limited to the right side, starting at the occiput and spreading into her right voodoo and behind her eye. There was associated photophobia. It was not relieved by tylenol. She was seen at urgent care a few days ago and was given steroids, reglan, and torodol, which relieved the pain, but it then came back later that night. She was not given any additional medication to take home with her at that time. She was evaluated today in the ED by the neurologist Dr. Vogt, who found her neuro exam to be normal, and recommended torodol, reglan, magnesium, and IV fluids. These did improve the patient's pain. The hospitalist team was asked to evaluate the patient for admission, however by the time I evaluated the patient she was reporting her headache was largely resolved and rated her pain at 1/10. Her photophobia has also resolved and the patient was able to sleep and watch TV. She denied any otehr symptoms including chest pain, shortness of breath, dizziness, or palpitations. Since the patient's headache has resolved, the pt is stable for discharge to home with a prescription for fioricet, per Dr Izquierdo's recommendation. She is to have outpatient neurology follow up and to return to the ED should she experience a return or worsening of her symptoms. Past Medical History Ulcerative colitis s/p colectomy GERD Past Surgical History Total Colectomy Multiple perirectal abscess/fistula/fissue surgeries Myomectomy Family History The patient's mother had a history of an aneurysm and acoustic neuroma Social History The patient does not smoke cigarettes or drink alcohol. She is full code. Her , Antionette Mcwilliams is her medical decision maker. Review of Systems - Measurements Intake and Output: Intake and Output Last 24 Hours 07/11/18 07/12/18 07/13/18 07/14/18 06:59 06:59 06:59 06:59 Intake Total 208 Balance 208 Weight 53.07 kg Intake: IV Fluids 208 - Review of Systems General Comments: I performed a 14 point review of systems. All pertinent positives and negatives are listed above. Objective Active Medications: Ketorolac Tromethamine (Toradol Inj*) 30 mg IV PUSH Q6H PRN PRN Reason: PAIN Last Admin: 07/13/18 10:05 Dose: 30 mg Metoclopramide HCl (Reglan Iv*) 10 mg IV Q6H PRN PRN Reason: NAUSEA/VOMITING Last Admin: 07/13/18 10:08 Dose: 10 mg Vital Signs - 8 hr 07/13/18 07/13/18 07/13/18 07:37 07:58 08:04 Temperature 98.6 F Pulse Rate 81 76 Respiratory 18 Rate Blood Pressure 165/95 158/96 (mmHg) O2 Sat by Pulse 98 100 Oximetry 07/13/18 07/13/18 07/13/18 08:33 08:39 09:00 Temperature Pulse Rate 75 69 Respiratory Rate Blood Pressure 155/103 (mmHg) O2 Sat by Pulse 98 99 100 Oximetry 07/13/18 07/13/18 07/13/18 09:09 09:39 10:00 Temperature Pulse Rate 70 73 76 Respiratory Rate Blood Pressure 143/82 149/88 (mmHg) O2 Sat by Pulse 97 92 99 Oximetry 07/13/18 07/13/18 07/13/18 10:09 10:39 11:00 Temperature Pulse Rate 75 81 89 Respiratory Rate Blood Pressure 150/102 116/78 (mmHg) O2 Sat by Pulse 98 97 96 Oximetry 07/13/18 07/13/18 07/13/18 11:09 11:39 12:00 Temperature Pulse Rate 77 96 84 Respiratory Rate Blood Pressure 119/77 108/72 (mmHg) O2 Sat by Pulse 98 98 97 Oximetry 07/13/18 07/13/18 07/13/18 12:09 12:39 13:00 Temperature Pulse Rate 87 94 86 Respiratory Rate Blood Pressure 123/84 117/90 (mmHg) O2 Sat by Pulse 98 97 99 Oximetry 07/13/18 07/13/18 13:09 13:39 Temperature 98.6 F Pulse Rate 85 96 Respiratory 16 Rate Blood Pressure 120/83 120/83 (mmHg) O2 Sat by Pulse 99 100 Oximetry Oxygen Devices in Use Now: None Eyes: No Scleral Icterus, PERRLA Ears/Nose/Mouth/Throat: NL Teeth, Lips, Gums, Clear Oropharnyx, Mucous Membranes Moist Neck: NL Appearance and Movements; NL JVP, Trachea Midline Respiratory: Symmetrical Chest Expansion and Respiratory Effort, Clear to Auscultation Cardiovascular: NL Sounds; No Murmurs; No JVD, RRR, No Edema Abdominal: NL Sounds; No Tenderness; No Distention Extremities: No Edema Skin: No Rash or Ulcers, No Nodules or Sclerosis Neurological: Alert and Oriented x 3, NL Sensation, NL Muscle Strength and Tone Result Diagrams: 07/13/18 08:31 07/13/18 08:31 Assessment/Plan - Billing Assessment: 47 year old female presented to ED with 1 wk history of gradually worsening headache. Plan By Medical Problem: 1. Headache - Recieved torodol, reglan, MG and IVF in ED per neurology recommendations, which resulting in resolution of headache. Per Dr Izquierdo, will discharge with fioricet VTE PPX: Patient is low risk and is ambulatory Diet: Regular diet Code Status: Full Code Disposition: Stable for discharge to home
== END 2018-07-13 13:39 | disposition home or self-care (01) ==
LOC: ED 07:35
DX: R51 Headache (principal); R11.0 Nausea; K21.9 Gastro-esophageal reflux disease without esophagitis; K51.90 Ulcerative colitis, unspecified, without complications
CPT/HCPCS: 36415; 80053; 83605; 83735; 84443; 85025; 85610; 85730; 86140; 96365; 96375; 99283; J1885; J2765; J3475

== ENCOUNTER 2018-07-14 13:10 | Observation (INO) | payer BC ==
--- NOTE | 2018-07-14 13:29 | ED ---
Headache - HPI Summary HPI Summary: This patient is a 47 year old F presenting to [facility] with a chief complaint of right sided since 8 days ago. She was here at [facility] yesterday, and it was decided for her to be discharged home with Fioricet instead of admission for pain control. However, patient reports that the Fioricet relieved the pain for about an hour and then the headache came back with no relief. The patient rates the pain 10/10 in severity. Patient reports mild photophobia, auditory sensitivity, nausea, and chills. Patient denies visual changes and fever. - History Of Current Complaint Chief Complaint: EDHeadache Stated Complaint: SEVERE HEADACHE Time Seen by Provider: 07/14/18 13:22 Hx Obtained From: Patient Onset/Duration: Started days ago - 8 days ago, Still Present Currently Pain Is: Current Pain Scale(0-10)= - 10 Timing: Constant Location of Headache: Temporal Allevating Factors: Medication - For 1 hour Associated Signs And Symptoms: Nausea - Denies, Fever - Denies, Visual Changes - Denies, Other (Noted In Comments) - Mild photophobia, auditory sensitivity, and chills. - Allergies/Home Medications Allergies/Adverse Reactions: Allergies Allergy/AdvReac Type Severity Reaction Status Date / Time levofloxacin Allergy Itching Verified 07/14/18 13:19 metronidazole [From Flagyl] Allergy Rash Verified 07/14/18 13:19 Sulfa (Sulfonamide Allergy Rash Verified 07/14/18 13:19 Antibiotics) PMH/Surg Hx/FS Hx/Imm Hx Endocrine/Hematology History: Denies: Hx Diabetes Cardiovascular History: Denies: Hx Angina, Hx Atrial Fibrillation, Hx Cardiac Arrest, Hx Congestive Heart Failure, Hx Coronary Artery Disease, Hx Hypercholesterolemia, Hx Hypertension, Hx Myocardial Infarction, Hx Valvular Heart Disease Respiratory History: Reports: Other Respiratory Problems/Disorders - cough since april, Denies: Hx Asthma, Hx Chronic Obstructive Pulmonary Disease (COPD) GI History: Reports: Hx Gastroesophageal Reflux Disease, Other GI Disorders - hx colitis History: Denies: Hx Dialysis, Hx Renal Disease Sensory History: Denies: Hx Contacts or Glasses, Hx Hearing Aid Opthamlomology History: Denies: Hx Contacts or Glasses Neurological History: Reports: Hx Headaches, Hx Migraine Psychiatric History: Reports: Hx Attention Deficit Hyperactivity Disorder - Cancer History Hx Chemotherapy: No Hx Radiation Therapy: No - Surgical History Surgery Procedure, Year, and Place: total colectomy , Myomectomy 2009. multiple perirectal abscess/fistula/fissure surgeries. fibroidectomy. c- section 2004 Infectious Disease History: No Infectious Disease History: Denies: Traveled Outside the [place] in Last 30 Days - Family History Known Family History: Positive: Other - Colitis and Celiac Disease. Aneurysm in mother. - Social History Alcohol Use: Rare Substance Use Type: Reports: None Smoking Status (MU): Never Smoked Tobacco Review of Systems Positive: Chills Positive: Other - Denies visual changes Positive: Nausea Neurological: Other - Photophobia, auditory sensitivity Positive: Headache - Right-sided temporal pain All Other Systems Reviewed And Are Negative: Yes Physical Exam - Summary Physical Exam Summary: General: well-appearing, in mild pain distress Skin: warm, color reflects adequate perfusion, dry Head: normal Eyes: EOMI, FELICITA ENT: normal Neck: supple, nontender Respiratory: CTA, breath sounds present Cardiovascular: RRR Abdomen: soft, nontender Bowel: present Musculoskeletal: normal, strength/ROM intact Neurological: sensory/motor intact, A&O x3 Psychological: affect/mood appropriate Triage Information Reviewed: Yes Vital Signs On Initial Exam: Initial Vitals Temp Pulse Resp BP Pulse Ox 98.7 F 86 16 149/93 98 07/14/18 13:16 07/14/18 13:16 07/14/18 13:16 07/14/18 13:16 07/14/18 13:16 Vital Signs Reviewed: Yes Diagnostics - Vital Signs Vital Signs Temp Pulse Resp BP Pulse Ox 07/14/18 13:16 98.7 F 86 16 149/93 98 - Laboratory Result Diagrams: 07/14/18 14:13 07/14/18 14:13 Lab Statement: Any lab studies that have been ordered have been reviewed, and results considered in the medical decision making process. Headache Course/Dx - Course Course Of Treatment: I discussed the patient with the neurologist Dr. Vogt. The plan is to admit the patient as this is her third emergency department visits and her headache is not been improved by outpatient treatment. - Diagnoses Provider Diagnoses: Intractable headache - Physician Notifications Discussed Care Of Patient With: Edwin Vogt - Neurologist Time Discussed With Above Provider: 13:36 Instructed by Provider To: Admit As Inpatient Discharge - Sign-Out/Discharge Documenting (check all that apply): Patient Departure - Admit All imaging exams completed and their final reports reviewed: No Studies - Discharge Plan Condition: Stable Disposition: ADMITTED TO [facility] - Billing Disposition and Condition Condition: STABLE Disposition: Admitted to [facility] - Attestation Statements Document Initiated by Orlando: Yes Documenting Scribe: Steven Tobar Provider For Whom Orlando is Documenting (Include Credential): You Leon MD Scribe Attestation: Steven Baez, scribed for You Leon MD on 07/14/18 at 1821. Scribe Documentation Reviewed: Yes Provider Attestation: The documentation as recorded by the Steven gomez accurately reflects the service I personally performed and the decisions made by me, You Leon MD Status of Scribe Document: Viewed Consult Consult: 13:43 consult with Anshul Pace MD who will admit the patient
[2018-07-14] MEDS ORDERED: Metoclopramide IV* 5 MG/ML 2 ML VIAL IV SLOW PU ONE (13:36)
[2018-07-14] MEDS ORDERED: Ketorolac INJ* 30 MG/ML 1 ML VIAL IV ONE (13:36)
[2018-07-14] MEDS ORDERED: Magnesium Sulfate IV* 0.5 GM/ML 2 ML VIAL (1 GM) IVPB ONE (13:37)
[2018-07-14] MEDS: NS 0.9% 1000 ML* 2,000 ML IV ONE ×2 (13:45→13:46)
[2018-07-14] MEDS ORDERED: Magnesium Sulfate 2 GM IV* 2 GM/50 ML BAG ONE (13:51)
[2018-07-14] MEDS ORDERED: MAGNESIUM SULFATE IV 1 GM - ED ONCE IVPB ONE (14:00)
[2018-07-14] MEDS ORDERED: Ondansetron INJ* 2 MG/ML VIAL IV PRN (14:07)
[2018-07-14 14:24] LABS: ABS Basophils 0 10^3/ul (0-0.2); ABS Eosinophils 0.1 10^3/ul (0-0.6); ABS Lymphocytes 1.6 10^3/ul (1.0-4.8); ABS Monocytes 0.7 10^3/ul (0-0.8); ABS Neutrophils 4.5 10^3/ul (1.5-7.7); ABS Nucleated RBC 0 10^3/ul; Eosinophil % 1.4 %; Hematocrit 39 % (35-47); Lymphocyte % 23.6 %; Mean Corpuscular HGB Conc 34 g/dl (31-36); Mean Corpuscular Hemoglobin 30 pg (27-31); Mean Corpuscular Volume 88 fL (80-97); Mean Platelet Volume 6.5 fL (7.4-10.4); Nucleated Red Blood Cells % 0.1; Platelet Count 405 10^3/ul (150-450); Red Cell Distribution Width 14 % (10.5-15); White Blood Count 6.9 10^3/ul (3.5-10.8)
[2018-07-14 14:38] LABS: Albumin 3.9 g/dL (3.2-5.2); Albumin/Globulin Ratio 1.5 (1-3); BUN/Creatinine Ratio 16.3 (8-20); C Reactive Protein 3.84 mg/L (<8.01); Calcium 8.8 mg/dL (8.6-10.3); EGFR Non-African American 70.4 (>60); Globulin 2.6 g/dL (2-4); Potassium 3.8 mmol/L (3.5-5.0); Total Bilirubin 0.4 mg/dL (0.2-1.0); Total Protein 6.5 g/dL (6.4-8.9)
[2018-07-14] MEDS: NS 0.9% 1000 ML* 1,000 ML IV SCH (15:41)
[2018-07-14] MEDS ORDERED: buPROPion TAB* 75 MG PO SCH (17:00)
[2018-07-14] MEDS ORDERED: Ketorolac INJ* 30 MG/ML 1 ML VIAL IV PUSH PRN (19:30)
[2018-07-14] MEDS ORDERED: MAGNESIUM SULFATE IVPB ONE (19:30)
[2018-07-14] MEDS ORDERED: NS 0.9% IVPB ONE (19:30)
[2018-07-14] MEDS ORDERED: Metoclopramide IV* 5 MG/ML 2 ML VIAL IV PRN (19:30)
[2018-07-14] MEDS: Cephalexin CAP* 500 MG PO SCH (20:59)
[2018-07-14] MEDS ORDERED: Magnesium Sulfate 2 GM IV* 2 GM/50 ML BAG IVPB ONE (21:00)
[2018-07-14] MEDS ORDERED: CEPHALEXIN 500 MG PO ONE (21:00)
--- NOTE | 2018-07-14 23:30 | HP ---
CC: Dr. Rodriguez; Dr. Vogt * HISTORY AND PHYSICAL: DATE OF ADMISSION: 07/14/18 PROVIDER: Brionna Mccarthy NP PRIMARY CARE PHYSICIAN: Dr. Rodriguez. ATTENDING PHYSICIAN: Dr. Pace * (dictated by Brionna Mccarthy NP). CONSULTING NEUROLOGIST: Dr. Vogt. CHIEF COMPLAINT: Severe headache. HISTORY OF PRESENT ILLNESS: Ms. Mcwilliams is a 47-year-old female with a past medical history significant for migraines as a teenager, ulcerative colitis, status post colectomy, and GERD, who presented to the ED with a 1-week history of headache. Of note, the patient has had 2 previous ED visits for the same headache. During this visit, she was given medications including Toradol, steroids, Reglan, magnesium, and IV fluids. Both times, the headache was resolved and then she went home. At the time of yesterday's visit, she was also given Fioricet prescription to take it home. The headache initially started about a week ago. It was mild at first and intermittent and then gradually worsened to 10/10 throbbing pain and has been consistent for the past 3 days except for her periods of relief with medication. In the ED, the headache is limited to her right side starting at the occiput and spreading into her right bahai and behind her eye. She does have some mild photophobia and nausea accompanied with this headache, however, she has not had any vomiting. The pain is throbbing in nature. It is not provoked by a change in position or worse at any particular time of day. She has no neck stiffness associated with this. She denies any weakness or difficulty with her gait. She denies any numbness or tingling. After the patient left the ED yesterday after having been evaluated by Dr. Vogt with Neurology and treated with Toradol, Reglan, magnesium, and IV fluids, she reports a few hours of relief with the headache returning later that evening. She did take the Fioricet, which provided about 1 hour of relief, but the headache then returned to its 10/ 10 strength. She decided to come back to the ED for further evaluation. Of note, the patient did have a CTA on 07/10/18 in this ED during her initial presentation. This showed no acute intracranial abnormality, however, it did show a small 1 mm outpouching of the cavernous portion of the left internal carotid. I also evaluated the patient for admission to the hospitalist service yesterday; however, at the time of my evaluation, the patient's headache had completely subsided and was at 1/10. She was able to watch TV and sleep and it was decided that she could try to return home with p.o. medication for pain control and return to the ED if any symptoms returned. On my exam today, the patient denies any chest pain, shortness of breath, dizziness, or palpitation. She does endorse mild photophobia and mild nausea. She does also report having some chills earlier that day, but no fevers as far as she knows. No new cough or dysuria. The patient had no focal neuro deficits on exam. The hospitalist team was asked to admit the patient today for pain control and additional workup if necessary of this headache. I have spoken to Dr. Vogt today and we have agreed upon the plan of care. PAST MEDICAL HISTORY: 1. Ulcerative colitis, status post colectomy. 2. GERD. 3. Migraines as a teenager associated with her period. PAST SURGICAL HISTORY: 1. Total colectomy. 2. Multiple perirectal abscesses, fistula, and fissure surgeries. 3. Myomectomy. 4. . HOME MEDICATIONS: 1. Wellbutrin 75 mg p.o. q.i.d. 2. Prilosec 20 mg p.o. daily. 3. Keflex 500 mg p.o. t.i.d. 4. Fioricet 1 tab p.o. q.6 hours p.r.n. with a max daily dose of 4. ALLERGIES: The patient has an allergy to LEVOFLOXACIN with a reaction of itching. She has an allergy to FLAGYL with a reaction of rash and allergy to SULFA DRUGS with a reaction of rash. FAMILY HISTORY: The patient's mother had a history of an aneurysm and acoustic neuroma. SOCIAL HISTORY: The patient does not smoke cigarettes or drink alcohol. She is full code. Her , Yanick Mcwilliams, is her medical decision maker. REVIEW OF SYSTEMS: I performed a 14-point review of systems. All the pertinent positives and negatives are mentioned in the history of present illness. The remaining review of systems are negative. PHYSICAL EXAMINATION GENERAL: The patient is alert and pleasant. She appears fatigued and in mild distress. VITAL SIGNS: Temperature 98.8, heart rate 86, respiratory rate 16, O2 sat 98% on room air, and blood pressure 149/93. HEENT: Normocephalic, atraumatic. Pupils are equal, round, and reactive to light and accommodation. EOMs are intact. NECK: Supple. No lymphadenopathy noted. No JVD appreciated. RESPIRATORY: No accessory muscle use. Lungs are clear to auscultation. Normal work of breathing. CARDIAC: Regular rate and rhythm. S1 and S2 present. No murmurs, rubs, or gallops heard. ABDOMEN: Soft, nontender, nondistended. There are bowel sounds x4. EXTREMITIES: No lower extremity edema. MUSCULOSKELETAL: No clubbing or cyanosis noted. The patient exhibited 5/5 strength in all extremities. NEUROLOGIC: The patient is alert and oriented x3. No facial droop noted. Finger- to-nose is intact. The patient exhibited 5/5 strength in all 4 extremities. Sensation is intact. No droop or drift. PSYCHIATRIC: The patient is calm and cooperative. SKIN: There are no rashes or abnormalities seen. DIAGNOSTIC STUDIES/LAB DATA: Labs: White blood cell count 6.9, RBC 4.4, hemoglobin 13.0, hematocrit 39, MCV 89, MCH 30, MCHC 34, RDW 14, platelet count 405, MPV 6.5. Sodium 136, potassium 3.8, chloride 105, carbon dioxide 26, anion gap 5, BUN 14, creatinine 0.86, glucose 110, calcium 8.8. Total bili 0.4 , AST 25, ALT 20, alk phos 56. C-reactive protein 3.84. Total protein 6.5. Albumin 3.9, globulin 2.6, albumin/globulin ratio 1.5. Diagnostics: Head CTA from 07/10/18 with no acute intracranial abnormality, small 1 mm outpouching of the cavernous portion of the left internal carotid artery laterally, which may represent a small focal ectasia versus infundibulum of the vessel, possibly the small aneurysm . ASSESSMENT: The patient is a 47-year-old female with past medical history significant for migraines as a teenager who presented to the ED with a 1-week history of gradually worsening headache, refractory to pain medication, who will be admitted to the hospitalist service for pain control and further workup of her intractable headache. PLAN: 1. Intractable headache. The patient was evaluated by Dr. Vogt with Neurology yesterday. I spoke to Dr. Vogt again today. The plan per Neurology is for the patient to receive Toradol 30 IV, Reglan 10 mg IV, magnesium 2 g IV as well as IV fluids, which is the combination of medications that worked for her yesterday. Should her headache return, she can have that combination of medications 1 more time. If there is no resolution of the headache, we will consider Depakote at 15 mg/kg x1. As of now, it is unclear why the patient is having this intractable headache. The patient does not have any focal neurological symptoms on exam; however, if the patient does continue to have this pain, we will consider an MRI tomorrow to look for underlying causes. The patient received 2 L of IV fluids in the ED and I will continue supplementing her fluids at 100 mL per hour. 2. History of GERD. I will continue the patient's Prilosec. 3. History of depression. I am holding the patient's Wellbutrin this evening as there is a severe interaction with the Reglan; however, I will resume the Wellbutrin tomorrow. 4. Infected cut on finger. I will continue the patient's Keflex. 5. Diet. The patient can have a regular diet. 6. DVT prophylaxis. The patient is low risk. She can have DVT prophylaxis with SCDs and frequent ambulation. 7. Code status: The patient is full code. 8. Disposition. Observation. Anticipate discharge to home when medically stable. TIME SPENT: Time spent for this admission was 60 minutes; 35 minutes were spent with the patient discussing medications, past medical history, and events leading up to the arrival today and performing physical exam. The case has been reviewed with the attending, Dr. Pace, who agrees with the plan of care. BRIONNA MCCARTHY, VISHAL [id number]/[facility] [place]: [id number] [place]
[2018-07-15] MEDS: NS 0.9% 1000 ML* 1,000 ML IV SCH ×2 (02:27→13:03)
[2018-07-15] MEDS ORDERED: Divalproex ER TAB(*) 250 MG PO PRN (03:00)
[2018-07-15] MEDS: Ketorolac INJ* 30 MG/ML 1 ML VIAL IV PUSH PRN ×2 (08:49→18:03)
[2018-07-15] MEDS: buPROPion TAB* 75 MG PO SCH ×3 (08:50→18:01)
[2018-07-15] MEDS: Cephalexin CAP* 500 MG PO SCH (08:50)
[2018-07-15] MEDS ORDERED: Omeprazole CAP* 20 MG PO SCH (09:00)
--- NOTE | 2018-07-15 10:38 | PN ---
Subjective Date of Service: 07/15/18 Interval History: Headache responded again markedly to IV ketorolac. Objective Active Medications: Bupropion HCl (Wellbutrin Tab*) 75 mg PO QID [facility] Last Admin: 07/15/18 08:50 Dose: 75 mg Cephalexin HCl (Keflex Cap*) 500 mg PO TID [facility] Last Admin: 07/15/18 08:50 Dose: Not Given Sodium Chloride (Ns 0.9% 1000 Ml*) 1,000 mls @ 100 mls/hr IV PER RATE [facility] Last Admin: 07/15/18 02:27 Dose: 100 mls/hr Ketorolac Tromethamine (Toradol Inj*) 30 mg IV PUSH Q6H PRN PRN Reason: PAIN Last Admin: 07/15/18 08:49 Dose: 30 mg Omeprazole (Prilosec Cap*) 20 mg PO DAILY [facility] Last Admin: 07/15/18 08:49 Dose: 20 mg Ondansetron HCl (Zofran Inj*) 4 mg IV Q4H PRN PRN Reason: NAUSEA/VOMITING Vital Signs - 8 hr 07/15/18 07/15/18 05:21 07:12 Temperature 98.6 F Pulse Rate 73 68 Respiratory 19 16 Rate Blood Pressure 130/91 118/72 (mmHg) O2 Sat by Pulse 99 99 Oximetry Oxygen Devices in Use Now: None Appearance: Alert, sitting up in bed. In good spirits. Looks comfortable. Eyes: No Scleral Icterus Extremities: No Edema, No Clubbing, Cyanosis, - Skin: No Rash or Ulcers, No Nodules or Sclerosis, - Neurological: Alert and Oriented x 3, NL Sensation Result Diagrams: 07/14/18 14:13 07/14/18 14:13 Assess/Plan/Problems-Billing Assessment: - Patient Problems (1) Migraine Current Visit: Yes Status: Acute Code(s): G43.909 - MIGRAINE, UNSP, NOT INTRACTABLE, WITHOUT STATUS MIGRAINOSUS SNOMED Code(s): 80937474 Comment: Mother, uncle, niece have migraines. Pt had migraines after puberty. Started new job recently and this is stressful as well as caring for her 13 yr old son. [employer] only worked for 1-2 hrs. Oral divalproex did not help at all. MRI pending. Discussed with Dr. Vogt. (2) Ulcerative colitis Current Visit: Yes Status: Acute Code(s): K51.90 - ULCERATIVE COLITIS, UNSPECIFIED, WITHOUT COMPLICATIONS SNOMED Code(s): 89665948 Comment: s/p colectomy (3) GERD (gastroesophageal reflux disease) Current Visit: No Status: Acute Code(s): K21.9 - GASTRO-ESOPHAGEAL REFLUX DISEASE WITHOUT ESOPHAGITIS SNOMED Code(s): 180820020 Comment: - Continue PPI.
--- NOTE | 2018-07-15 11:17 | CONSULT ---
Consult Consult: NEUROLOGY CONSULTATION Patient seen and examined 07/15/2018 10.30am CC : headache HPI : This is a 47 yr old woman with history of migraines headache during her teenage years centered around her menstrual cycle who was recently treated for headaches with resolution of symptoms presenting with recurrence of headache. The patient was discharged with fiorcet to be taken as needed. She states the fioricet helped for about 1 hr with recurrence of headache. The headache character has not changed. She endorses a significant amount of stress with her new job. The headache started about one week ago. She presented to the ED on 07/10/2018 when a CTA of the head was performed and she was treated with steroids and toradol with relief, however the headache recurred and she was not able to obtain an outpatient neurology appointment therefore she presented to the ED. She did take some advil at home without relief. The headache is located in the right retroorbital and parietal region radiating to the occiput. It is throbbing in nature and constant. It is not provoked by change in position or worse at any particular time of day. She is mildly nauseous with any episodes of emesis. There is associated photophobia and phonophobia. There is no neck stiffness. The headache onset was gradual. She denied a thunderclap quality to the headache. She did present to the ED on 07/04/2018 and was diagnosed with an episode of vasovagal syncope and was given fluids. She denies numbness, tingling , weakness or difficulty with gait. She was treated with roradol, reglan and magnesium this admission with resolution of the headache, however the headache recurred this morning and she was given a loading dosing of depakote which did not alleviate the pain. Currently she is having 7/10 pain. Review of Systems The patient's review of systems questionnaire was reviewed and there are no additional pertinent positives. PMH: Migraines in teenage years Allergies levofloxacin Allergy (Verified 07/13/18 07:42) Meds Cephalexin CAP* [Keflex CAP*] 500 mg PO TID 6 Days #18 cap 07/05/18 [Rx Confirmed 07/14/18] buPROPion TAB* [Wellbutrin TAB*] 75 mg PO QID 07/10/18 [History Confirmed ] Butalb/Acetamin/Caff TAB* [Fioricet TAB*] 1 tab PO Q6H PRN #20 tab MDD 4 [Rx Confirmed 07/14/18] Omeprazole CAP* [Prilosec CAP* 20 MG] 20 mg PO DAILY 07/13/18 [History Confirmed 07/14/18] FH: Mother had an aneurysm General: NAD, NCAT CVS/Resp: regular rate, breathing comfortably Mental Status: attentive/oriented/fluent CN: PERRLA, EOMI, V1=V2=V3, face symmetrical, hearing grossly intact, palate midline, SCM/ trapezius strength intact bilaterally, tongue midline Motor: strength intact, normal tone/bulk, bilaterally in UE/LEs Sensory: grossly intact LT in arms, legs, and trunk Coord/ Gait: intact FFM/ FTN/SIRISHA in UE/LEs Reflexes: intact symmetrically in UE/LEs Laboratory Results WBC 6.9 10^3/ul (3.5-10.8) 07/14/18 14:13 RBC 4.40 10^6/ul (4.00-5.40) 07/14/18 14:13 Hgb 13.0 g/dl (12.0-16.0) 07/14/18 14:13 Hct 39 % (35-47) 07/14/18 14:13 MCV 88 fL (80-97) 07/14/18 14:13 MCH 30 pg (27-31) 07/14/18 14:13 MCHC 34 g/dl (31-36) 07/14/18 14:13 RDW 14 % (10.5-15) 07/14/18 14:13 Plt Count 405 10^3/ul (150-450) 07/14/18 14:13 MPV 6.5 fL (7.4-10.4) L 07/14/18 14:13 Neut % (Auto) 65.0 % 07/14/18 14:13 Lymph % (Auto) 23.6 % 07/14/18 14:13 [place] % (Auto) 9.4 % 07/14/18 14:13 Eos % (Auto) 1.4 % 07/14/18 14:13 Baso % (Auto) 0.6 % 07/14/18 14:13 Absolute Neuts (auto) 4.5 10^3/ul (1.5-7.7) 07/14/18 14:13 Absolute Lymphs (auto) 1.6 10^3/ul (1.0-4.8) 07/14/18 14:13 Absolute Monos (auto) 0.7 10^3/ul (0-0.8) 07/14/18 14:13 Absolute Eos (auto) 0.1 10^3/ul (0-0.6) 07/14/18 14:13 Absolute Basos (auto) 0 10^3/ul (0-0.2) 07/14/18 14:13 Absolute Nucleated RBC 0 10^3/ul 07/14/18 14:13 Nucleated RBC % 0.1 07/14/18 14:13 Sodium 136 mmol/L (135-145) 07/14/18 14:13 Potassium 3.8 mmol/L (3.5-5.0) 07/14/18 14:13 Chloride 105 mmol/L (101-111) 07/14/18 14:13 Carbon Dioxide 26 mmol/L (22-32) 07/14/18 14:13 Anion Gap 5 mmol/L (2-11) 07/14/18 14:13 BUN 14 mg/dL (6-24) 07/14/18 14:13 Creatinine 0.86 mg/dL (0.51-0.95) 07/14/18 14:13 Est GFR ( Amer) 85.2 (>60) 07/14/18 14:13 Est GFR (Non-Af Amer) 70.4 (>60) 07/14/18 14:13 BUN/Creatinine Ratio 16.3 (8-20) 07/14/18 14:13 Glucose 110 mg/dL (70-100) H 07/14/18 14:13 Calcium 8.8 mg/dL (8.6-10.3) 07/14/18 14:13 Total Bilirubin 0.40 mg/dL (0.2-1.0) 07/14/18 14:13 AST 25 U/L (13-39) 07/14/18 14:13 ALT 20 U/L (7-52) 07/14/18 14:13 Alkaline Phosphatase 56 U/L (34-104) 07/14/18 14:13 C-Reactive Protein 3.84 mg/L (<8.01) 07/14/18 14:13 Total Protein 6.5 g/dL (6.4-8.9) 07/14/18 14:13 Albumin 3.9 g/dL (3.2-5.2) 07/14/18 14:13 Globulin 2.6 g/dL (2-4) 07/14/18 14:13 Albumin/Globulin Ratio 1.5 (1-3) 07/14/18 14:13 Imaging: CTA head IMPRESSION: small 1 mm outpouching of the cavernous portion of left internal carotid artery laterally which may represent a small focal ectasia versus infundibulum of a vessel. Possibility of a small aneurysm not excluded. This report is only to be considered final once signed by the Provider(s) as displayed in the "<Electronically Signed by >" field (s). Absence of a signature indicates the report is in a draft status and still needs to be finalized. In the event this document was created by someone other than the signing Provider, the individual initiating the document will be listed in the "Entered by:" or "Dictated by:" goldstein. A/P Refractory Migraine Toradol Q6 [place] Q6 Mg 2 x2 given Depakote given IVF Obtain MRI brain with and without contrast to investigate for a structural lesion If MRI brain is without acute findings may discharge home with Maxalt 10 PRN #9 pills and Topamax 25 mg nightly F/U outpatient neurology
[2018-07-15] MEDS ORDERED: RIZATRIPTAN 5 MG PO PRN (13:55)
[2018-07-15 16:32] VITALS: BP 118/83
[2018-07-15] MEDS ORDERED: Gadoteridol* (CONTRAST) 279.3 MG/ML 10 ML IV ONE (16:45)
--- NOTE | 2018-07-15 19:31 | DS ---
CC: Dr. Rodriguez; Dr. Pablo* DISCHARGE SUMMARY: DATE OF ADMISSION: 07/14/18 DATE OF DISCHARGE: 07/15/18 HISTORY OF PRESENT ILLNESS: This 47-year-old woman presented with a severe headache. She had 2 previous emergency room visits for the same headache. She was given intravenous ketorolac, steroids, metoclopramide, magnesium, and IV fluids. At this time, she had been given Fioricet and/or Percocet at home; other times, she said the Fioricet only. It lasted about an hour or 2 and the directions were to take every 6 hours as needed. The pain was pretty constant for the 3 days before admission except for when she took medication. It was mainly on the right side. The patient has a history of migraines starting at puberty but in recent years did not have any and she cannot really remember her old migraines too well. I note her mother, her uncle, and her niece also have migraine headaches. The patient was evaluated with a CTA of the head and a brain MRI. These results were unremarkable. She was seen in consultation by Dr. Vogt of Neurology. She is going to start on topiramate daily at bedtime tonight and has a p.r.n. prescription for rizatriptan as well. 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 She also has, she says, a lot of stress raising her 13-year-old son who has ADHD. DISCHARGE DIAGNOSES: 1. Migraine. 2. Gastroesophageal reflux disease. 3. Depression. DISCHARGE MEDICATIONS: 1. Rizatriptan 5 mg every 2 hours as needed, not to take more than 2 in 24- hour period and not to take more than 10 days per month. 2. Topiramate 25 mg h.s. 3. Bupropion 75 mg 4 times a day. 4. Omeprazole 20 mg daily. 5. Fioricet 1 tablet every 6 hours p.r.n. CONDITION ON DISCHARGE: improved DISPOSITION ON DISCHARGE: discharged home [id number]/[facility] #: [id number] BRITNEY
[2018-07-15] MEDS ORDERED: Topiramate TAB(*) 25 MG PO SCH (21:00)
== END 2018-07-15 20:15 | disposition home or self-care (01) ==
LOC: ED 13:10 → MED 14:07
PROVIDERS: ADMIT Internal Medicine; ATTEND Internal Medicine
DX: G43.909 Migraine, unspecified, not intractable, without status migrainosus (principal); K21.9 Gastro-esophageal reflux disease without esophagitis; F32.9 Major depressive disorder, single episode, unspecified; R11.0 Nausea; R51 Headache
CPT/HCPCS: 36415; 70553; 80053; 85025; 86140; 96365; 96366; 96375; 96376; 99282; A9270-GY; A9579; G0378; J1885; J2405; J2765; J3475

== ENCOUNTER 2018-07-16 12:25 | Emergency (ER) | payer BC ==
[2018-07-16] MEDS ORDERED: Ketorolac INJ* 30 MG/ML 1 ML VIAL IV PUSH ONE (12:58)
[2018-07-16] MEDS ORDERED: NS 0.9% 1000 ML* 1,000 ML IV ONE ×2 (12:58→16:05)
[2018-07-16] MEDS ORDERED: Ondansetron INJ* 2 MG/ML VIAL IV ONE (12:59)
--- NOTE | 2018-07-16 12:59 | ED ---
Headache - HPI Summary HPI Summary: A 47 y/o female presents to [facility] with a chief complaint of headache since 07/07. She rates her pain as 10/10. She has been to the ED multiple times since her headache started, recently being admitted overnight. She had an MRI that revealed sinusitis. She denies blurred vision, vomiting or chills. She admits to some nausea and fever. Her temperature in the ED was 98.7. She claims that she was given Tylenol, but that has not alleviated her pain. When she was discharged on 07/15/18 she was given Topamax but she has not taken it yet. She denies being on control. She also denies a Hx of blood clots in the legs or lungs or a Hx of chronic headaches. - History Of Current Complaint Chief Complaint: EDHeadache Stated Complaint: SEVERE HEADACHE Time Seen by Provider: 07/16/18 12:32 Hx Obtained From: Patient Onset/Duration: Sudden Onset, Started days ago, Still Present Initially Headache Was: Initial Pain Scale(0-10)= - 10, Severe Currently Pain Is: Current Pain Scale(0-10)= - 10, Severe Timing: Constant, Days Character: Unable To Describe Location of Headache: Other: - left sided Aggravating Factor: Nothing Allevating Factors: Nothing Associated Signs And Symptoms: Nausea - Allergies/Home Medications Allergies/Adverse Reactions: Allergies Allergy/AdvReac Type Severity Reaction Status Date / Time levofloxacin Allergy Itching Verified 07/16/18 12:42 metronidazole [From Flagyl] Allergy Rash Verified 07/16/18 12:42 Sulfa (Sulfonamide Allergy Rash Verified 07/16/18 12:42 Antibiotics) PMH/Surg Hx/FS Hx/Imm Hx Endocrine/Hematology History: Denies: Hx Diabetes Cardiovascular History: Denies: Hx Angina, Hx Atrial Fibrillation, Hx Cardiac Arrest, Hx Congestive Heart Failure, Hx Coronary Artery Disease, Hx Hypercholesterolemia, Hx Hypertension, Hx Myocardial Infarction, Hx Pacemaker/ICD, Hx Valvular Heart Disease Respiratory History: Reports: Other Respiratory Problems/Disorders - cough since april, Denies: Hx Asthma, Hx Chronic Obstructive Pulmonary Disease (COPD) GI History: Reports: Hx Gastroesophageal Reflux Disease, Other GI Disorders - hx colitis History: Denies: Hx Dialysis, Hx Renal Disease Sensory History: Denies: Hx Contacts or Glasses, Hx Hearing Aid Opthamlomology History: Denies: Hx Contacts or Glasses Neurological History: Reports: Hx Headaches, Hx Migraine Psychiatric History: Reports: Hx Attention Deficit Hyperactivity Disorder Denies: Hx Panic Disorder - Cancer History Hx Chemotherapy: No Hx Radiation Therapy: No - Surgical History Surgery Procedure, Year, and Place: 11/1992 TOTAL COLECTOMY;. 09/1993 ILEOANAL PULL THRU;. 07/2004 ;. 02/2010 MYOMECTOMY;. MULTIPL PERIRECTAL ABCESSES AND ABDOMINAL ABCESSES WITH DRAININGS; - Immunization History Immunizations Up to Date: Yes Infectious Disease History: No Infectious Disease History: Denies: Traveled Outside the [place] in Last 30 Days - Family History Known Family History: Positive: Other - Colitis and Celiac Disease. Aneurysm in mother. - Social History Alcohol Use: Rare Substance Use Type: Reports: None Smoking Status (MU): Never Smoked Tobacco Review of Systems Constitutional: Other Positive: Fever - reports occasional fever [employer], tempertature in the ED 98.7. Negative: Chills Positive: Nausea. Negative: Vomiting Positive: Headache All Other Systems Reviewed And Are Negative: Yes Physical Exam Vital Signs On Initial Exam: Initial Vitals Temp Pulse Resp BP Pulse Ox 98.7 F 85 16 155/99 98 07/16/18 12:28 07/16/18 12:28 07/16/18 12:28 07/16/18 12:28 07/16/18 12:28 Diagnostics - Vital Signs Vital Signs Temp Pulse Resp BP Pulse Ox 07/16/18 12:28 98.7 F 85 16 155/99 98 - Laboratory Lab Statement: Any lab studies that have been ordered have been reviewed, and results considered in the medical decision making process. - CT Head MRI CT Interpretation Completed By: Radiologist Summary of CT Findings: NO VENOUS SINUS THROMBOSIS OR OCCLUSION. ED physician has reviewed this imaging report. Re-Evaluation - Re-Evaluation First Eval Re-Evaluation Time: 15:40 Change: Worse Comment: The patient reports that her headache is returning. Second Eval Re-Evaluation Time: 18:00 Change: Improved Comment: Patient is feeling better. Headache Course/Dx - Course Course Of Treatment: A 47 y/o female presents to [facility] with a chief complaint of headache since 07/07/18. Workup is unremarkable with the physical exam being normal. Head MRI impression: NO VENOUS SINUS THROMBOSIS OR OCCLUSION. In the ED course the patient was given Toradol, Zofran and Sodium Chloride IV. Dx: headache. The patient will be discharged. I discussed results with patient and she reports feeling better. She is hemodynamically stable and safe for discharge. Strict return precautions given and she will otherwise follow up with her PCP. - Diagnoses Provider Diagnoses: Headache - Physician Notifications Discussed Care Of Patient With: Edwin Vogt Time Discussed With Above Provider: 13:05 Instructed by Provider To: Other - Discussed case with Dr. Vogt, neurology, and agreed on ordering an MRV to rule-out sinus thrombosis. At 16:15 discussed MRV results and the patient still reporting pain. Discharge - Sign-Out/Discharge Documenting (check all that apply): Patient Departure - DC - Discharge Plan Condition: Stable Disposition: HOME Referrals: Matilda Rodriguez MD [Primary Care Provider] - (1-3 days) Additional Instructions: Follow up with your primary care physician in 1-3 days. RETURN TO THE EMERGENCY DEPARTMENT FOR CHANGING OR WORSENING SYMPTOMS. - Billing Disposition and Condition Condition: STABLE Disposition: Home - Attestation Statements Document Initiated by Felicee: Yes Documenting Scribe: Vasile Lucia Provider For Whom Orlando is Documenting (Include Credential): Mitzy Bedoya MD Scribe Attestation: I, Vasile Lucia, marco antonioibed for Mitzy Bedoya MD on 07/19/18 at 1046. Scribe Documentation Reviewed: Yes Provider Attestation: The documentation as recorded by the Vasile gomez accurately reflects the service I personally performed and the decisions made by me, Edson Bedoya MD Status of Scribe Document: Viewed
[2018-07-16] MEDS ORDERED: Dexamethasone IV* 4 MG/ML 5 ML VIAL (20 MG) IVPB ONE (16:04)
[2018-07-16] MEDS ORDERED: Magnesium Sulfate 2 GM IV* 2 GM/50 ML BAG IVPB ONE (16:04)
[2018-07-16] MEDS ORDERED: fentaNYL* 50 MCG/ML 2 ML VIAL (100 MCG VIAL) IV SLOW PU ONE (17:02)
[2018-07-16 19:01] VITALS: BP 133/71
== END 2018-07-16 19:15 | disposition home or self-care (01) ==
LOC: ED 12:25
DX: R51 Headache (principal); K21.9 Gastro-esophageal reflux disease without esophagitis; Z88.2 Allergy status to sulfonamides; F90.9 Attention-deficit hyperactivity disorder, unspecified type
CPT/HCPCS: 70544; 96361; 96374; 96375; 99283; J1100; J1885; J2405; J3475

== ENCOUNTER 2018-10-02 09:05 | Emergency (ER) | payer BC ==
[2018-10-02 09:14] VITALS: BP 117/84
--- NOTE | 2018-10-02 11:57 | UC ---
Abdominal Pain Female HPI - HPI Summary HPI Summary: ONSET YESTERDAY OF PERIUMBILICAL ABDOMINAL PAIN. HAS MILD NASUEA. NO FEVER. PAIN IS GETTING PROGRESSIVELY WORSE. HAS A H/O ULCERATIVE COLITIS S/P TOTAL COLECTOMY WITH A J-POUCH THAT WAS DONE MANY YEARS AGO. - History of Current Complaint Chief Complaint: UCAbdominalPain Stated Complaint: ABD PAIN Time Seen by Provider: 10/02/18 09:34 Hx Obtained From: Patient Onset/Duration: Sudden Onset, Lasting Days - 1 DAY, Still Present Timing: Constant Severity Initially: Moderate Severity Currently: Moderate Pain Intensity: 8 Pain Scale Used: 0-10 Numeric Location: Diffuse Radiates: No Character: Sharp Aggravating Factor(s): Nothing Alleviating Factor(s): Nothing Associated Signs and Symptoms: Positive: Decreased Appetite, Nausea. Negative: Fever, Back Pain, Blood in Stool, Urinary Symptoms, Vomiting Allergies/Adverse Reactions: Allergies Allergy/AdvReac Type Severity Reaction Status Date / Time levofloxacin Allergy Itching Verified 10/02/18 10:16 metronidazole [From Flagyl] Allergy Rash Verified 10/02/18 10:16 Sulfa (Sulfonamide Allergy Rash Verified 10/02/18 10:16 Antibiotics) Home Medications: Home Medications L. Rhamnosus GG/Inulin [Culturelle Probiotics Capsule] 1 each PO 10/02/18 [ History] PMH/Surg Hx/FS Hx/Imm Hx Other GI/ History: ULCERATIVE COLITIS S/P TOTAL COLECTOMY W/ J-POUCH Psychological History: Depression - Surgical History Surgical History: Yes Surgery Procedure, Year, and Place: 11/1992 TOTAL COLECTOMY;. 09/1993 ILEOANAL PULL THRU;. 07/2004 ;. 02/2010 MYOMECTOMY;. MULTIPL PERIRECTAL ABCESSES AND ABDOMINAL ABCESSES WITH DRAININGS; - Family History Known Family History: Positive: Other - Colitis and Celiac Disease. Aneurysm in mother. - Social History Alcohol Use: Rare Substance Use Type: None Smoking Status (MU): Never Smoked Tobacco - Immunization History Most Recent Influenza Vaccination: unknown Most Recent Pneumonia Vaccination: never Review of Systems All Other Systems Reviewed And Are Negative: Yes Constitutional: Positive: Negative Respiratory: Positive: Negative Cardiovascular: Positive: Negative Gastrointestinal: Positive: Abdominal Pain, Nausea Genitourinary: Positive: Negative Physical Exam Triage Information Reviewed: Yes Appearance: Well-Nourished, Pain Distress - MOD/SEVERE - PT BENT OVER HOLDING ABDOMEN Vital Signs: Initial Vital Signs Temp 97.8 F 10/02/18 09:11 Pulse 76 10/02/18 09:11 Resp 18 10/02/18 09:11 BP 117/84 10/02/18 09:11 Pulse Ox 100 10/02/18 09:11 Vital Signs Reviewed: Yes Eyes: Positive: Conjunctiva Clear ENT: Positive: Hearing grossly normal Neck: Positive: Supple Respiratory Exam: Normal Cardiovascular Exam: Normal Abdomen Description: Positive: Soft, Other: - TTO LEFT SIDE ABDOMEN. NO RIGIDITY OR REBOUND. Negative: Distended, Guarding Bowel Sounds: Positive: Present Musculoskeletal: Positive: No Edema Neurological: Positive: Alert Psychological: Positive: Age Appropriate Behavior Skin: Negative: Rashes Abd Pain Female Course/Dx - Differential Dx/Diagnosis Provider Diagnosis: Abdominal pain Discharge - Sign-Out/Discharge Documenting (check all that apply): Patient Departure All imaging exams completed and their final reports reviewed: No Studies - Discharge Plan Condition: Stable Disposition: TRANS HIGHER [facility] Patient Education Materials: Abdominal Pain (ED) Referrals: Matilda Rodriguez MD [Primary Care Provider] - Additional Instructions: GO DIRECTLY TO THE [facility] ED FROM HERE FOR FURTHER EVALUATION. YOU HAVE DECLINED TRANSFER TO THE ED BY AMBULANCE. BE ADVISED THAT BY NOT TRAVELING IN A MONITORED SETTING YOU COULD BE RISKING WORSENING OF YOUR CONDITION THAT COULD POSE A THREAT TO YOUR LIFE, HEALTH AND MEDICAL SAFETY. - Billing Disposition and Condition Condition: STABLE Disposition: Trans Higher Lvl of Care Fac
== END 2018-10-02 09:47 | disposition short-term general hospital (02) ==
LOC: UCEAST 09:05
DX: R10.33 Periumbilical pain (principal); Z88.1 Allergy status to other antibiotic agents; Z88.2 Allergy status to sulfonamides
CPT/HCPCS: 99212; G0463

== ENCOUNTER 2018-10-02 10:12 | Observation (INO) | payer BC ==
[2018-10-02] MEDS ORDERED: NS 0.9% 1000 ML** 1,000 ML IV ONE ×2 (10:25→14:15)
[2018-10-02] MEDS ORDERED: Ondansetron INJ* 2 MG/ML VIAL IV ONE (10:25)
[2018-10-02] MEDS ORDERED: Morphine 10 MG/ML VIAL (1 ml) IV ONE ×2 (10:25→12:16)
--- NOTE | 2018-10-02 10:29 | ED ---
Abdominal Pain/Female - HPI Summary HPI Summary: The patient is a 48 y/o F presenting to [facility] with a chief complaint of sudden onset epigastric and supraumbilical abd pain onset yesterday afternoon and persisting into today. She states that she thought the pain was due to trapped flatulence pain, but the pain hadn't been relieved after her usual treatment with a tea she often uses for that symptom. The sharp, stabbing pain is currently rated 10/10 in severity and has been intermittently waxing and waning since onset, although the pain is constantly evident. She went to before presenting here, where she notes she had nausea and vomiting during travel. She denies diarrhea and back pain, and she hasn't had this pain before despite hx of ulcerative colitis. Surgical hx of colectomy, cholecystectomy, myomectomy, and Cesarian section. - History of Current Complaint Chief Complaint: EDAbdPain Stated Complaint: ABD PAIN, VOMITING PER PT Time Seen by Provider: 10/02/18 10:21 Hx Obtained From: Patient Onset/Duration: Sudden Onset, Lasting Hours - starting yesterday afternoon, Still Present Timing: Hours Severity Initially: Moderate Severity Currently: Severe Pain Intensity: 10 Pain Scale Used: 0-10 Numeric Location: Epigastric, Umbilical - supra Radiates: No Character: Sharp, Other: - stabbing Aggravating Factor(s): Nothing Alleviating Factor(s): Nothing - tried to use a tea that she uses for flatulence pain to no relief Associated Signs and Symptoms: Positive: Nausea, Vomiting. Negative: Back Pain , Diarrhea Allergies/Adverse Reactions: Allergies Allergy/AdvReac Type Severity Reaction Status Date / Time levofloxacin Allergy Itching Verified 10/02/18 10:16 metronidazole [From Flagyl] Allergy Rash Verified 10/02/18 10:16 Sulfa (Sulfonamide Allergy Rash Verified 10/02/18 10:16 Antibiotics) Home Medications: Home Medications Loratadine 10 mg PO BEDTIME 10/02/18 [History Confirmed 10/02/18] PMH/Surg Hx/FS Hx/Imm Hx Endocrine/Hematology History: Denies: Hx Diabetes Cardiovascular History: Denies: Hx Angina, Hx Atrial Fibrillation, Hx Cardiac Arrest, Hx Congestive Heart Failure, Hx Coronary Artery Disease, Hx Hypercholesterolemia, Hx Hypertension, Hx Myocardial Infarction, Hx Pacemaker/ICD, Hx Valvular Heart Disease Respiratory History: Reports: Other Respiratory Problems/Disorders - cough since april, Denies: Hx Asthma, Hx Chronic Obstructive Pulmonary Disease (COPD) GI History: Reports: Hx Gastroesophageal Reflux Disease, Other GI Disorders - hx colitis History: Denies: Hx Dialysis, Hx Renal Disease Sensory History: Denies: Hx Contacts or Glasses, Hx Hearing Aid Opthamlomology History: Denies: Hx Contacts or Glasses Neurological History: Reports: Hx Headaches, Hx Migraine Psychiatric History: Reports: Hx Attention Deficit Hyperactivity Disorder Denies: Hx Panic Disorder - Cancer History Hx Chemotherapy: No Hx Radiation Therapy: No - Surgical History Surgery Procedure, Year, and Place: 11/1992 TOTAL COLECTOMY;. 09/1993 ILEOANAL PULL THRU;. 07/2004 ;. 02/2010 MYOMECTOMY;. MULTIPL PERIRECTAL ABCESSES AND ABDOMINAL ABCESSES WITH DRAININGS; Infectious Disease History: No Infectious Disease History: Denies: Traveled Outside the [place] in Last 30 Days - Family History Known Family History: Positive: Other - Colitis and Celiac Disease. Aneurysm in mother. Negative: Hypertension, Diabetes - Social History Occupation: Employed Full-time Alcohol Use: Rare Hx Substance Use: No Substance Use Type: Reports: None Hx Tobacco Use: No Smoking Status (MU): Never Smoked Tobacco Do You Chew or Dip Tobacco: No Have You Chewed or Dipped Tobacco in the LAST YEAR: No Review of Systems Positive: Abdominal Pain - epigastric to supraumbilical, Vomiting, Nausea. Negative: Diarrhea Positive: Other - NEGATIVE: back pain All Other Systems Reviewed And Are Negative: Yes Physical Exam - Summary Physical Exam Summary: VITAL SIGNS: Reviewed. GENERAL: Patient is a well-developed and nourished female who is lying comfortable in the stretcher. Patient is not in any acute respiratory distress. HEAD AND FACE: Normocephalic and atraumatic. EYES: PERRLA, EOMI x 2, No injected conjunctiva. EARS: Hearing grossly intact. Ear canals and tympanic membranes are WNL. MOUTH: Oropharynx dry but otherwise within normal limits. NECK: Supple, trachea is midline, no adenopathy, no JVD. CHEST: Symmetric, no tenderness at palpation LUNGS: Clear to auscultation bilaterally. No wheezing or crackles. CVS: RRR, S1 and S2 present, no murmurs or gallops appreciated. ABDOMEN: Soft, epigastric and supraumbilical tenderness. No signs of distention. Increased positive bowel sounds. Some rebound but no guarding, and no masses palpated. No abdominal bruit or pulsations. EXTREMITIES: FROM in all major joints, no edema, no cyanosis or clubbing. NEURO: Alert and oriented x 3. No acute neurological deficits. Speech is normal. SKIN: Dry and warm Triage Information Reviewed: Yes Vital Signs On Initial Exam: Initial Vitals Temp Pulse Resp BP Pulse Ox 97.4 F 59 16 130/89 99 10/02/18 10:13 10/02/18 10:13 10/02/18 10:13 10/02/18 10:13 10/02/18 10:13 Vital Signs Reviewed: Yes Diagnostics - Vital Signs Vital Signs Temp Pulse Resp BP Pulse Ox 10/02/18 10:13 97.4 F 59 16 130/89 99 - Laboratory Result Diagrams: 10/02/18 10:55 10/02/18 10:55 Lab Statement: Any lab studies that have been ordered have been reviewed, and results considered in the medical decision making process. - Radiology Abd/Pel XR Radiology Interpretation Completed By: Radiologist Summary of Radiographic Findings: Dilated loop of distal colon. This is similar to previous examinations. The differential includes distal colonic obstruction, including partial or intermittent obstruction. ED physician has reviewed this report. CXR Radiology Interpretation Completed By: Radiologist Summary of Radiographic Findings: Lines and tubes as above. No active cardiopulmonary disease. ED physician has reviewed this report. CXR2 Radiology Interpretation Completed By: Radiologist Summary of Radiographic Findings: No active cardiopulmonary disease is noted. Nasogastric tube appears in the stomach. ED physician has reviewed this report. - CT Abd/Pel CT CT Interpretation Completed By: Radiologist Summary of CT Findings: 1. Findings most consistent with a moderate to high- grade partial small obstruction. 2. Status post total colectomy. 3. Small amount of free intraperitoneal fluid. 4. Cystic lesion in the left adnexa, unchanged. 5. Intra and extrahepatic ductal distention, slightly more prominent. ED physician has reviewed this report. - EKG 1039 Cardiac Rate: NL - 70 BPM EKG Rhythm: Sinus Rhythm EKG Comparison: No Significant Change - Similar to 07/04/18. Summary of EKG Findings: No ST elevations. 10:39 Cardiac Rate: NL - 70 BPM EKG Rhythm: Sinus Rhythm EKG Comparison: No Significant Change - Similar to 07/04/18. Summary of EKG Findings: No ST elevations. Re-Evaluation - Re-Evaluation First Eval Re-Evaluation Time: 14:25 Change: Unchanged Comment: I spoke with the patient concering lab and imaging results and further workup with admission. Abdominal Pain Fem Course/Dx - Course Course Of Treatment: Patient is a 48-year-old female who presents to the emergency department with chief complaint of having epigastric and suprapubic pain. The patient reports that the pain started yesterday and started with nausea and one episode of vomiting. She also reports that she has history of ulcerative colitis in the past. The pain is 9 out of 10. In the ED course the patient was given IV fluids, Zofran for nausea, morphine for pain, and Protonix. Blood work without any significant abnormality except for WBCs of 12.8 , hematocrit of 42, carbon dioxide of 17, and anion gap of 13, glucose of 111, CRP of 13.10. Abdomen x-ray impression: Dilated loop of the distal colon. This is similar to previous examinations. Differential includes distal colonic obstruction. Including partial or intermittent obstruction. Abdominal pelvic CT impression: 1. Findings most consistent with a moderate to high-grade partial small obstruction. 2. Status post total colectomy. 3. Small amount of free intraperitoneal fluid. 4. Cystic lesion in the left adnexa, unchanged. 5. Intra and extrahepatic ductal distention, slightly more prominent. The patient was placed on a nasogastric tube. Dr. Tolentino is consulting for the patient and he will be admitted the patient to his services for further workup and management. At this point the patient is hemodynamically stable alert and oriented 3. - Diagnoses Differential Diagnosis: Positive: Bowel Obstruction, Constipation Provider Diagnoses: Small bowel obstruction - Provider Notifications Discussed Care Of Patient With: Johnson Tolentino - surgery Time Discussed With Above Provider: 16:15 Instructed by Provider To: Other - I consulted with Dr. Tolentino, who accepts the patient for admission at this time. Discharge - Sign-Out/Discharge Documenting (check all that apply): Patient Departure - Patient will be admitted to [facility] for further care. Patient Received Moderate/Deep Sedation with Procedure: No - Discharge Plan Condition: Stable Disposition: ADMITTED TO [facility] - Billing Disposition and Condition Condition: STABLE Disposition: Admitted to [facility] - Attestation Statements Document Initiated by Orlando: Yes Documenting Scribe: Marva Weiner Provider For Whom Orlando is Documenting (Include Credential): Dr. Thomas Quiroz MD Scribe Attestation: I, Marva Weiner, scribed for Dr. Thomas Quiroz MD on 10/02/18 at 1737. Scribe Documentation Reviewed: Yes Provider Attestation: The documentation as recorded by the Marva gomez accurately reflects the service I personally performed and the decisions made by me, Dr. Thomas Quiroz MD Status of Scribe Document: Ready
[2018-10-02] MEDS ORDERED: Pantoprazole IV* 40 MG IV ONE (10:46)
[2018-10-02 11:19] LABS: Albumin 4.2 g/dL (3.2-5.2); Calcium 9.2 mg/dL (8.6-10.3); Magnesium 2.1 mg/dL (1.9-2.7); Potassium 3.6 mmol/L (3.5-5.0); Total Bilirubin 0.5 mg/dL (0.2-1.0)
[2018-10-02 11:22] LABS: ABS Basophils 0 10^3/ul (0-0.2); ABS Eosinophils 0.1 10^3/ul (0-0.6); ABS Lymphocytes 1.1 10^3/ul (1.0-4.8); ABS Monocytes 0.7 10^3/ul (0-0.8); ABS Neutrophils 10.8 10^3/ul (1.5-7.7); ABS Nucleated RBC 0 10^3/ul; Eosinophil % 0.8 %; Hematocrit 42 % (33-41); Lymphocyte % 8.5 %; Mean Corpuscular HGB Conc 33 g/dL (31-36); Mean Corpuscular Hemoglobin 30 pg (27-31); Mean Corpuscular Volume 89 fL (80-97); Mean Platelet Volume 6.9 fL (7.4-10.4); Nucleated Red Blood Cells % 0; Platelet Count 431 10^3/uL (150-450); Red Blood Count 4.74 10^6 /uL (3.70-4.87); Red Cell Distribution Width 13 % (10.5-15); White Blood Count 12.8 10^3/uL (3.5-10.8)
[2018-10-02 11:25] LABS: Albumin/Globulin Ratio 1.4 (1-3); BUN/Creatinine Ratio 22.7 (8-20); C Reactive Protein 13.1 mg/L (<8.01); EGFR African American 99.4 (>60); EGFR Non-African American 82.1 (>60); Globulin 3.1 g/dL (2-4); Total Protein 7.3 g/dL (6.4-8.9)
[2018-10-02 11:41] LABS: HCG Pregnancy 4.05 mIU/mL
[2018-10-02] MEDS ORDERED: Iohexol 300* (CONTRAST) 10 ML SDV IV ONE (11:58)
[2018-10-02] MEDS ORDERED: Lidocaine 2% JELLY* 10 ML JELLY TOPICAL ONE (15:08)
[2018-10-02] MEDS ORDERED: Lidocaine 2% JELLY* 6 ML JELLY TOPICAL ONE (15:30)
[2018-10-02] MEDS: Morphine 4 MG/ML VIAL (1 ml) 4 MG/ML VIAL IV PRN ×3 (16:52→20:05)
[2018-10-02] MEDS: Ondansetron INJ* 2 MG/ML VIAL IV PRN (16:52)
--- NOTE | 2018-10-02 17:11 | HP ---
CC: Yovany Morgan MD; Matilda Rodriguez MD * HISTORY AND PHYSICAL: DATE OF ADMISSION: 10/02/18 CHIEF COMPLAINT: Small bowel obstruction. HISTORY OF PRESENT ILLNESS: This is a 48-year-old female with a past medical history significant for ulcerative colitis, who is status post proctocolectomy with J-pouch reconstruction at [facility] in . The patient has had multiple small bowel obstructions including as recently as last year and she ended up having a finding of anastomotic stenosis and underwent a dilation at [facility] last February, where her colorectal surgeon is. She reports being in her usual state of health until yesterday when she began having abdominal pain diffusely with epigastric and supraumbilical location. She thought this was gas pain, tried laxative without effect. The patient also noted decreased flatus and stool output. She notes pain started after lunch yesterday when she had eaten chicken fajitas. She had the same meal for dinner though less. Today , her pain was more severe and presented to the urgent care center for evaluation. She had subsequent episodes of emesis and was transferred to [facility] Emergency Room. In the emergency room, the patient underwent imaging including abdominal plain films and CT scan abdomen and pelvis with oral and IV contrast. She was found to have findings consistent with small bowel obstruction with transition zone in the left lower quadrant. After a nasogastric tube was placed, 2 L of fluid was removed and the patient is feeling better. Emergency room physician requested admission and surgical evaluation. She reports she is feeling better since the nasogastric tube was placed. She denies fevers and chills. PAST MEDICAL HISTORY: Significant for ulcerative colitis, gastroesophageal reflux disease, migraines, pancreatitis, and recurrent small bowel obstructions. PAST SURGICAL HISTORY: Proctocolectomy with ileostomy and ileostomy reversal in 1992 and 1993. She has had a section, myomectomy, and has had multiple perirectal abscess drainages as well as surgical treatment of anorectal fistula and fissure. MEDICATIONS: 1. Wellbutrin 75 mg p.o. 4 times a day. 2. Prilosec 20 mg p.o. q. day. 3. Loratadine 10 p.o. q.h.s. 4. Culturelle probiotic capsule 1 daily. ALLERGIES: LEVAQUIN, METRONIDAZOLE, and SULFA DRUGS caused rashes and itching. FAMILY HISTORY: Notable for mother with aneurysm and acoustic neuroma. There is also history of colitis and celiac disease. 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 She does not use tobacco or drugs and rarely drinks alcohol. REVIEW OF SYSTEMS: A 14-point review significant for the above-mentioned, otherwise remaining systems negative. PHYSICAL EXAMINATION GENERAL: This is a thin 48-year-old female, in no acute distress. VITAL SIGNS: Temperature 97.4, pulse 86, blood pressure 116/76, O2 sat 95% on room air. She is 5 feet 3 inches tall and 112 pounds. HEENT: Normocephalic, atraumatic. Sclerae anicteric. Mucous membranes moist. There is no otorrhea or rhinorrhea. She has a nasogastric tube present in the right naris. NECK: Symmetrical and supple with no palpable lymphadenopathy or masses. LUNGS: Clear to auscultation bilaterally without wheezes, rales, or rhonchi. HEART: Regular. S1, S2. No murmurs appreciated. ABDOMEN: Her abdomen has well-healed midline scar and right lower quadrant scar. It is softly distended, minimally tender with no rebound or guarding. I palpated no hernias. RECTAL: Examination was not performed. EXTREMITIES: Warm and without cyanosis, clubbing, or edema. DIAGNOSTIC STUDIES/LAB DATA: WBCs 12.8, hemoglobin 14, platelets 431, no left shift. Chemistries notable for sodium 135, potassium 3.6, chloride 105, bicarb 17, BUN 17, creatinine 0.75, glucose of 111. Transaminases are normal. Amylase and lipase are normal. Beta-hCG was not elevated and CRP was 13. Imaging of the abdomen was reviewed including abdominal x-rays, CT scan. Findings are notable for normal-appearing liver, spleen, kidneys, adrenals, aorta, lymph nodes. Bowel was noted to have distention of the stomach with high -grade small bowel obstruction with ileoanal anastomosis. There appears to be transition point in the left lower quadrant. IMPRESSION: A 48-year-old female with history of ulcerative colitis, status post proctocolectomy with J-pouch and recurrent small bowel obstructions, now presenting with small bowel obstruction for 24 hours. She does seem to be improving with nasogastric tube decompression. PLAN/RECOMMENDATIONS: I discussed the findings with the patient. I explained the nature of small bowel obstruction and discussed management options. At this point, I believe she will be best managed with conservative management. We will continue nasogastric tube decompression and IV fluids. We will repeat abdominal x-rays in the morning and follow serial abdominal examination. We will continue her PPI IV and hold her Wellbutrin for now. [id number]/[facility] #: [id number] MTDD
[2018-10-02 17:22] LABS: Urine Appearance Clear; Urine Bilirubin Negative (Negative); Urine Blood Negative (Negative); Urine Color Yellow; Urine Glucose Negative (Negative); Urine Ketones Trace (Negative); Urine Nitrite Negative (Negative); Urine Protein Negative (Negative); Urine Specific Gravity 1.021 (1.010-1.030); Urine Urobilinogen Negative (Negative)
[2018-10-02] MEDS: Lactated Ringers 1000 ML Bag* 1,000 ML IV SCH (17:58)
--- NOTE | 2018-10-02 23:52 | PN ---
Progress Note - Progress Note Date of Service: 10/02/18 SOAP: Subjective: Still has pain and no flatus. Morphine helps but doesn't want more at this time. Objective: Vital Signs Temp 98.6 F 10/02/18 21:08 Pulse 89 10/02/18 21:08 Resp 14 10/02/18 21:08 BP 114/71 10/02/18 21:08 Pulse Ox 95 10/02/18 21:08 Abd: soft; mildly tender with distension/tympany; no guarding. Intake & Output 10/02/18 10/02/18 10/03/18 06:59 18:59 06:59 Intake Total 2000 0 Output Total 0 Balance 1999 0 Weight 112 lb 112 lb Intake: IV Fluids 2000 Oral 0 Output: Urine 0 Assessment: SBO. Stable. Plan: Cont NGT. Serial exams. AXR and labs in am.
[2018-10-03] MEDS: Ondansetron INJ* 2 MG/ML VIAL IV PRN (01:45)
[2018-10-03] MEDS: Lactated Ringers 1000 ML Bag* 1,000 ML IV SCH ×2 (01:46→08:26)
[2018-10-03 05:47] LABS: ABS Basophils 0 10^3/ul (0-0.2); ABS Eosinophils 0 10^3/ul (0-0.6); ABS Lymphocytes 0.6 10^3/ul (1.0-4.8); ABS Monocytes 0.6 10^3/ul (0-0.8); ABS Neutrophils 5.5 10^3/ul (1.5-7.7); ABS Nucleated RBC 0 10^3/ul; Eosinophil % 0.6 %; Hematocrit 41 % (33-41); Hemoglobin 13.7 g/dL (12.0-16.0); Lymphocyte % 9.3 %; Mean Corpuscular HGB Conc 34 g/dL (31-36); Mean Corpuscular Hemoglobin 30 pg (27-31); Mean Corpuscular Volume 89 fL (80-97); Nucleated Red Blood Cells % 0; Platelet Count 375 10^3/uL (150-450); Red Blood Count 4.58 10^6 /uL (3.70-4.87); Red Cell Distribution Width 13 % (10.5-15); White Blood Count 6.7 10^3/uL (3.5-10.8)
[2018-10-03 06:04] LABS: Calcium 8.4 mg/dL (8.6-10.3); EGFR African American 126.1 (>60); EGFR Non-African American 104.2 (>60); Potassium 3.4 mmol/L (3.5-5.0)
--- NOTE | 2018-10-03 08:55 | PN ---
Progress Note - Progress Note Date of Service: 10/03/18 SOAP: Subjective: Reports flatus and loose BMs. Pain improved. Objective: Vital Signs Temp 98.3 F 10/03/18 03:55 Pulse 78 10/03/18 03:55 Resp 16 10/03/18 03:55 BP 110/75 10/03/18 03:55 Pulse Ox 95 10/03/18 03:55 Gen: NAD Abd: +BS; soft, ND, NT. Intake & Output 10/02/18 10/03/18 10/03/18 18:59 06:59 18:59 Intake Total 2000 0 Output Total 800 Balance 1999 -800 Weight 112 lb 112 lb Intake: IV Fluids 1999 Oral 0 Output: NG Tube Drainage Amount 100 Urine 700 Laboratory Results - last 24 hr 10/02/18 10/02/18 10/02/18 10:55 10:55 10:55 WBC 12.8 H RBC 4.74 Hgb 14.0 Hct 42 H MCV 89 MCH 30 MCHC 33 RDW 13 Plt Count 431 MPV 6.9 L Neut % (Auto) 84.9 Lymph % (Auto) 8.5 [place] % (Auto) 5.6 Eos % (Auto) 0.8 Baso % (Auto) 0.2 Absolute Neuts (auto) 10.8 H Absolute Lymphs (auto) 1.1 Absolute Monos (auto) 0.7 Absolute Eos (auto) 0.1 Absolute Basos (auto) 0 Absolute Nucleated RBC 0 Nucleated RBC % 0 Sodium 135 Potassium 3.6 Chloride 105 Carbon Dioxide 17 L Anion Gap 13 H BUN 17 Creatinine 0.75 Est GFR ( Amer) 99.4 Est GFR (Non-Af Amer) 82.1 BUN/Creatinine Ratio 22.7 H Glucose 111 H Lactic Acid 1.0 Calcium 9.2 Magnesium 2.1 Total Bilirubin 0.50 AST 21 ALT 10 Alkaline Phosphatase 64 Troponin I 0.00 C-Reactive Protein 13.10 H Total Protein 7.3 Albumin 4.2 Globulin 3.1 Albumin/Globulin Ratio 1.4 Amylase 53 Lipase 20 Beta HCG, Quant 4.05 Urine Color Urine Appearance Urine pH Ur Specific [place] Urine Protein Urine Ketones Urine Blood Urine Nitrate Urine Bilirubin Urine Urobilinogen Ur Leukocyte Esterase Urine Glucose 10/02/18 10/03/18 10/03/18 17:01 05:24 05:24 WBC 6.7 RBC 4.58 Hgb 13.7 Hct 41 MCV 89 MCH 30 MCHC 34 RDW 13 Plt Count 375 MPV 7.0 L Neut % (Auto) 81.1 Lymph % (Auto) 9.3 [place] % (Auto) 8.7 Eos % (Auto) 0.6 Baso % (Auto) 0.3 Absolute Neuts (auto) 5.5 Absolute Lymphs (auto) 0.6 L Absolute Monos (auto) 0.6 Absolute Eos (auto) 0 Absolute Basos (auto) 0 Absolute Nucleated RBC 0 Nucleated RBC % 0 Sodium 137 Potassium 3.4 L Chloride 104 Carbon Dioxide 26 Anion Gap 7 BUN 11 Creatinine 0.61 Est GFR ( Amer) 126.1 Est GFR (Non-Af Amer) 104.2 BUN/Creatinine Ratio 18.0 Glucose 109 H Lactic Acid Calcium 8.4 L Magnesium Total Bilirubin AST ALT Alkaline Phosphatase Troponin I C-Reactive Protein Total Protein Albumin Globulin Albumin/Globulin Ratio Amylase Lipase Beta HCG, Quant Urine Color Yellow Urine Appearance Clear Urine pH 5.0 Ur Specific [place] 1.021 Urine Protein Negative Urine Ketones Trace A Urine Blood Negative Urine Nitrate Negative Urine Bilirubin Negative Urine Urobilinogen Negative Ur Leukocyte Esterase Negative Urine Glucose Negative Assessment: Resolving SBO. Plan: D/c NGT Clears Home later today.
[2018-10-03] MEDS ORDERED: Pantoprazole IV* 40 MG IV SCH (09:00)
[2018-10-03 11:37] VITALS: BP 107/65
== END 2018-10-03 11:35 | disposition home or self-care (01) ==
LOC: ED 10:12 → SSU 16:14 → INTOOBSV 16:14
PROVIDERS: ADMIT Surgery; ATTEND Surgery
DX: K56.609 Unspecified intestinal obstruction, unspecified as to partial versus complete obstruction (principal); R11.2 Nausea with vomiting, unspecified; R10.13 Epigastric pain; R05 Cough; K21.9 Gastro-esophageal reflux disease without esophagitis; F90.9 Attention-deficit hyperactivity disorder, unspecified type
CPT/HCPCS: 36415; 71045; 74019; 74177; 80048; 80053; 81003; 82150; 83605; 83690; 83735; 84484; 84702; 85025; 86140; 93005; 96361; 96374; 96375; 99284; A9270-GY; G0378; J2270; J2405; Q9967

== ENCOUNTER 2019-02-04 11:11 | Inpatient (IN) | payer BC ==
--- NOTE | 2019-02-04 11:35 | ED ---
Abdominal Pain/Female - HPI Summary HPI Summary: A 48 y/o female presents to [facility] with a chief complaint of abdominal pain since yesterday. She notes that her pain is worse in her lower abdomen. She rates her abdominal discomfort as an 8/10 in severity. She was in the ED in September 2018 for an SBO but did not have the same pain. She denies any fever, chills, erythema of eyes, sore throat, CP, SOB, cough, N/V, dysuria, hematuria, myalgia, edema, rash, or dizziness and notes that she has been having normal bowel movements and has been passing gas normally. Movement aggravates her pain and she reports right sided back pain. She reports a SHx of colectomy, , and myoectomy and a Hx of ulcerative colitis. She notes that she has a J tube , and has some inflammation of the pouch that was made. She reports a Hx of gallstones and pancreatitis. She sees Dr. Nair and Dr. Morgan for her GI problems. - History of Current Complaint Chief Complaint: EDAbdPain Stated Complaint: ABDOMINAL PAIN PER PATIENT Time Seen by Provider: 02/04/19 11:28 Hx Obtained From: Patient Onset/Duration: Sudden Onset, Lasting Hours, Still Present Timing: Constant Severity Initially: Severe Severity Currently: Severe Pain Intensity: 8 Pain Scale Used: 0-10 Numeric Location: Diffuse Radiates: No Character: Other: - discomfort Aggravating Factor(s): Movement Alleviating Factor(s): Nothing Associated Signs and Symptoms: Negative: Fever, Cough, Chest Pain, Dizzy, Urinary Symptoms, Nausea, Vomiting Allergies/Adverse Reactions: Allergies Allergy/AdvReac Type Severity Reaction Status Date / Time levofloxacin Allergy Itching Verified 10/02/18 10:16 metronidazole [From Flagyl] Allergy Rash Verified 10/02/18 10:16 Sulfa (Sulfonamide Allergy Rash Verified 10/02/18 10:16 Antibiotics) Home Medications: Home Medications LoraTADine TAB(NF) [Claritin 10 MG TAB(NF)] 10 mg PO DAILY 02/04/19 [History Confirmed 02/04/19] buPROPion TAB* [Wellbutrin TAB*] 150 mg PO BID 02/04/19 [History Confirmed 02/04] PMH/Surg Hx/FS Hx/Imm Hx Endocrine/Hematology History: Denies: Hx Diabetes Cardiovascular History: Denies: Hx Angina, Hx Atrial Fibrillation, Hx Cardiac Arrest, Hx Congestive Heart Failure, Hx Coronary Artery Disease, Hx Hypercholesterolemia, Hx Hypertension, Hx Myocardial Infarction, Hx Pacemaker/ICD, Hx Valvular Heart Disease Respiratory History: Reports: Other Respiratory Problems/Disorders - cough since april, Denies: Hx Asthma, Hx Chronic Obstructive Pulmonary Disease (COPD) GI History: Reports: Hx Gastroesophageal Reflux Disease, Other GI Disorders - hx colitis History: Denies: Hx Dialysis, Hx Renal Disease Sensory History: Denies: Hx Contacts or Glasses, Hx Hearing Aid Opthamlomology History: Denies: Hx Contacts or Glasses Neurological History: Reports: Hx Migraine Denies: Hx Headaches Psychiatric History: Reports: Hx Attention Deficit Hyperactivity Disorder Denies: Hx Panic Disorder - Cancer History Hx Chemotherapy: No Hx Radiation Therapy: No - Surgical History Surgery Procedure, Year, and Place: 11/1992 TOTAL COLECTOMY;. 09/1993 ILEOANAL PULL THRU;. 07/2004 ;. 02/2010 MYOMECTOMY;. MULTIPL PERIRECTAL ABCESSES AND ABDOMINAL ABCESSES WITH DRAININGS; Infectious Disease History: No Infectious Disease History: Denies: Traveled Outside the [place] in Last 30 Days - Family History Known Family History: Positive: Other - Colitis and Celiac Disease. Aneurysm in mother. Negative: Hypertension, Diabetes - Social History Alcohol Use: Rare Hx Substance Use: No Substance Use Type: Reports: None Hx Tobacco Use: No Smoking Status (MU): Never Smoked Tobacco Review of Systems Negative: Fever, Chills Negative: Erythema Negative: Sore Throat Negative: Chest Pain Negative: Shortness Of Breath, Cough Positive: Abdominal Pain, Other - positive: Pt reports normal bowel movements and being able to pass gas normally. Negative: Vomiting, Nausea Negative: dysuria, hematuria Positive: Other - positive: right sided back pain. Negative: Edema Negative: Rash Neurological: Negative - dizziness All Other Systems Reviewed And Are Negative: Yes Physical Exam - Summary Physical Exam Summary: Constitutional: Well-developed, Well-nourished, Alert. (-) Distressed Skin: Warm, Dry HENT: Normocephalic; Atraumatic Eyes: Conjunctiva normal Neck: Musculoskeletal ROM normal neck. (-) JVD, (-) Stridor, (-) Tracheal deviation Cardio: Rhythm regular, rate normal, Heart sounds normal; Intact distal pulses; The pedal pulses are 2+ and symmetric. Radial pulses are 2+ and symmetric. (-) Murmur Pulmonary/Chest wall: Effort normal. (-) Respiratory distress, (-) Wheezes, (-) Rales Abd: Soft, suprapubic and mild right CVA tednerness, (-) Distension, (-) Guarding, (-) Rebound Musculoskeletal: (-) Edema Lymph: (-) Cervical adenopathy Neuro: Alert, Oriented x3 Psych: Mood and affect Normal Triage Information Reviewed: Yes Vital Signs On Initial Exam: Initial Vitals Temp Pulse Resp BP Pulse Ox 98.7 F 71 18 137/101 98 02/04/19 11:13 02/04/19 11:13 02/04/19 11:13 02/04/19 11:13 02/04/19 11:13 Vital Signs Reviewed: Yes Diagnostics - Vital Signs Vital Signs Temp Pulse Resp BP Pulse Ox 02/04/19 11:13 98.7 F 71 18 137/101 98 - Laboratory Result Diagrams: 02/04/19 11:55 02/04/19 11:55 Lab Statement: Any lab studies that have been ordered have been reviewed, and results considered in the medical decision making process. - CT abdomen/pelvis CT Interpretation Completed By: Radiologist Summary of CT Findings: Prominent intrahepatic ducts without change since previous exam. Moderately. distended stomach is noted. Moderately distended colon is noted. Cystic lesion in the left adnexa is unchanged. No definite abscess is noted. ED physician has reviewed this imaging report. - Ultrasound No standard instances Ultrasound Interpretation Completed By: Radiologist Summary of Ultrasound Findings: Transvaginal ultrasound impression: Complex cystic LEFT adnexal region mass concerning for potential ovarian epithelial. neoplasm. Consider contrast-enhanced gynecologic protocol MRI pelvis for further. assessment. Negative for free pelvic fluid. Multiple small uterine fibroids and potential small endometrial polyp. ED physician has reviewed this imaging report. Re-Evaluation - Re-Evaluation First Eval Re-Evaluation Time: 14:08 Change: Unchanged Comment: no significant change Second Eval Re-Evaluation Time: 15:54 Change: Unchanged Comment: Pt is still reporteing 7/10 pain Third Eval Re-Evaluation Time: 19:43 Change: Unchanged Comment: Pt tells me she had a left pelvic cyst in years passed. she had ultrasound guided drainage in 2016 that yielded serous fluid. Abdominal Pain Fem Course/Dx - Course Course Of Treatment: A 48 y/o female presents to [facility] with a chief complaint of abdominal pain since yesterday. She notes that her pain is worse in her lower abdomen. She rates her abdominal discomfort as an 8/10 in severity. She was in the ED in September 2018 for an SBO but did not have the same pain. She denies any fever, chills, erythema of eyes, sore throat, CP, SOB, cough, N/V, dysuria, hematuria, myalgia, edema, rash, or dizziness and notes that she has been having normal bowel movements and has been passing gas normally. Movement aggravates her pain and she reports right sided back pain. She reports a SHx of colectomy, , and myoectomy and a Hx of ulcerative colitis. She notes that she has a J tube, and has some inflammation of the pouch that was made. She reports a Hx of gallstones and pancreatitis. She sees Dr. Nair and Dr. Morgan for her GI problems. The physical exam revealed suprapubic and mild right CVA tednerness. In the ED course the patietn was given Iohexol IV, Morphine IV and Zofran IV. Blood work, chemistries and urines obtained and are WNL. CT abdomen/pelvis impression: Prominent intrahepatic ducts without change since previous exam. Moderately. distended stomach is noted. Moderately distended colon is noted. Cystic lesion in the left adnexa is unchanged. No definite abscess is noted. Transvaginal ultrasound impression: Complex cystic LEFT adnexal region mass concerning for potential ovarian epithelial. neoplasm. Consider contrast-enhanced gynecologic protocol MRI pelvis for further. assessment. Negative for free pelvic fluid. Multiple small uterine fibroids and potential small endometrial polyp. Discussed case with Dr. Silva, who will see the patient in the ED. Discussed case with Dr. Jenkins, who says that surgery will consult and recommended PROOFER BLACK AND WHITE or medicine to admit the patient. The patient is agreeable with this plan. Discussed case with Dr. Silva, who after evaluating the patient in the ED does not believe that the ovarian cystic mass seem to be causing her symptoms. See his note. Discussed case with Dr. Noriega, hospitalist, who accepted the patient for admission. The patient is agreeable with this plan. - Diagnoses Provider Diagnoses: Ileus - Provider Notifications Discussed Care Of Patient With: Lucero Silva Time Discussed With Above Provider: 19:51 Instructed by Provider To: Will See In ED Discharge - Sign-Out/Discharge Documenting (check all that apply): Patient Departure - admit Patient Received Moderate/Deep Sedation with Procedure: No - Discharge Plan Condition: Fair Disposition: ADMITTED TO [facility] Referrals: Matilda Rodriguez MD [Primary Care Provider] - - Attestation Statements Document Initiated by Scribe: Yes Documenting Scribe: Vasile Lucia Provider For Whom Scribe is Documenting (Include Credential): Alex Arboleda MD Scribe Attestation: IVasile, scribed for Alex Arboleda MD on 02/04/19 at 2054. Status of Scribe Document: Ready Consult Consult: At 19:[address] Jenkins, who says that surgery will consult and recommended PROOFER BLACK AND WHITE or medicine to admit the patient. At 20:[address] Silva, who after evaluating the patient in the ED does not believe that the ovarian cystic mass seem to be causing her symptoms. See his note. At 20:[address] Noriega, hospitalist, who accepted the patient for admission.
[2019-02-04] MEDS ORDERED: Ondansetron INJ* 2 MG/ML VIAL IV ONE ×2 (11:50→19:38)
[2019-02-04] MEDS ORDERED: Morphine 4 MG/ML VIAL (1 ml) 4 MG/ML VIAL IV ONE (11:50)
[2019-02-04 12:02] LABS: ABS Basophils 0.1 10^3/ul (0-0.2); ABS Eosinophils 0.3 10^3/ul (0-0.6); ABS Lymphocytes 1.6 10^3/ul (1.0-4.8); ABS Monocytes 0.5 10^3/ul (0-0.8); ABS Neutrophils 6.1 10^3/ul (1.5-7.7); Eosinophil % 3.4 %; Hematocrit 43 % (35-47); Hemoglobin 14.2 g/dL (12.0-16.0); Lymphocyte % 18.5 %; Mean Corpuscular HGB Conc 33 g/dL (31-36); Mean Corpuscular Hemoglobin 29 pg (27-31); Mean Corpuscular Volume 88 fL (80-97); Mean Platelet Volume 6.4 fL (7.4-10.4); Platelet Count 441 10^3/uL (150-450); Red Blood Count 4.88 10^6 /uL (3.70-4.87); Red Cell Distribution Width 13 % (10-15); White Blood Count 8.5 10^3/uL (3.5-10.8)
[2019-02-04 12:17] LABS: Urine Appearance Clear; Urine Bilirubin Negative (Negative); Urine Blood Negative (Negative); Urine Color Yellow; Urine Glucose Negative (Negative); Urine Ketones Negative (Negative); Urine Nitrite Negative (Negative); Urine Protein Negative (Negative); Urine Specific Gravity 1.008 (1.010-1.030); Urine Urobilinogen Negative (Negative)
[2019-02-04 12:25] LABS: Albumin 4.1 g/dL (3.2-5.2); Albumin/Globulin Ratio 1.5 (1-3); BUN/Creatinine Ratio 14.5 (8-20); C Reactive Protein 7.89 mg/L (<8.01); Calcium 9.1 mg/dL (8.6-10.3); EGFR African American 88.4 (>60); EGFR Non-African American 73.1 (>60); Globulin 2.8 g/dL (2-4); Potassium 3.8 mmol/L (3.5-5.0); Total Bilirubin 0.4 mg/dL (0.2-1.0); Total Protein 6.9 g/dL (6.4-8.9)
[2019-02-04] MEDS ORDERED: Iohexol 300* (CONTRAST) 10 ML SDV IV ONE ×2 (13:24→13:54)
[2019-02-04] MEDS ORDERED: HYDROcodone/ACETAMIN 5-325 MG* 1 TAB PO ONE (19:38)
--- NOTE | 2019-02-04 20:23 | PN ---
Progress Note - Progress Note Date of Service: 02/04/19 - abd pain Note: 48 yo female . HX OF MULTIPLE SX RELATED TO UC INCLUDING LARGE BOWEL RESECTION. SHE HAS BEEN MENOPAUSAL SINCE AGE 40. HX OF LEFT OVARIAN CYST 7CMS LAST SEVERAL YEARS. HER CYST HAS NOT INCREASED IN SIZE. SHE DOES HAVE HX OF PAIN WITH SEX LAST SEVERAL YEARS WHICH MAY BE RELATED TO MENOPAUSE. PT HAD ABD PAIN AND N&V. ABD MULTIPLE SCARS PELVIC BM NL UTERUS. NEITHER ADHEXA SHOW OVARIAN CYST. Laboratory Results - last 24 hr 02/04/19 02/04/19 02/04/19 11:52 11:55 11:55 WBC 8.5 RBC 4.88 H Hgb 14.2 Hct 43 MCV 88 MCH 29 MCHC 33 RDW 13 Plt Count 441 MPV 6.4 L Neut % (Auto) 71.2 Lymph % (Auto) 18.5 [place] % (Auto) 6.3 Eos % (Auto) 3.4 Baso % (Auto) 0.6 Absolute Neuts (auto) 6.1 Absolute Lymphs (auto) 1.6 Absolute Monos (auto) 0.5 Absolute Eos (auto) 0.3 Absolute Basos (auto) 0.1 Absolute Nucleated RBC 0.0 Nucleated RBC % 0.0 Sodium 138 Potassium 3.8 Chloride 102 Carbon Dioxide 30 Anion Gap 6 BUN 12 Creatinine 0.83 Est GFR ( Amer) 88.4 Est GFR (Non-Af Amer) 73.1 BUN/Creatinine Ratio 14.5 Glucose 91 Lactic Acid Calcium 9.1 Total Bilirubin 0.40 AST 22 ALT 16 Alkaline Phosphatase 60 C-Reactive Protein 7.89 Total Protein 6.9 Albumin 4.1 Globulin 2.8 Albumin/Globulin Ratio 1.5 Lipase 17 Urine Color Yellow Urine Appearance Clear Urine pH 5.0 Ur Specific [place] 1.008 L Urine Protein Negative Urine Ketones Negative Urine Blood Negative Urine Nitrate Negative Urine Bilirubin Negative Urine Urobilinogen Negative Ur Leukocyte Esterase Negative Urine Glucose Negative 02/04/19 11:55 WBC RBC Hgb Hct MCV MCH MCHC RDW Plt Count MPV Neut % (Auto) Lymph % (Auto) [place] % (Auto) Eos % (Auto) Baso % (Auto) Absolute Neuts (auto) Absolute Lymphs (auto) Absolute Monos (auto) Absolute Eos (auto) Absolute Basos (auto) Absolute Nucleated RBC Nucleated RBC % Sodium Potassium Chloride Carbon Dioxide Anion Gap BUN Creatinine Est GFR ( Amer) Est GFR (Non-Af Amer) BUN/Creatinine Ratio Glucose Lactic Acid 1.1 Calcium Total Bilirubin AST ALT Alkaline Phosphatase C-Reactive Protein Total Protein Albumin Globulin Albumin/Globulin Ratio Lipase Urine Color Urine Appearance Urine pH Ur Specific [place] Urine Protein Urine Ketones Urine Blood Urine Nitrate Urine Bilirubin Urine Urobilinogen Ur Leukocyte Esterase Urine Glucose PELVIC U/S C/W 7 CM LEFT OVARIAN CYST, UNCHANGED. A. ACUTE ABD PAIN MOST LIKELY FROM UC DISEASE AND ADHESIONS.IT IS DOUBTFUL THAT HER PERSISTENT OVARIAN CYST OF 7 CMS IS RESPONSIBLE FOR HER PAIN.CLINICALLY, SHE HAS NO SIGNIFICANT SERVICE PARTS COORDINATOR PROBLEM. PLAN: CONSIDER GEN SX CONSULT.
--- NOTE | 2019-02-04 22:16 | HP ---
History of Present Illness - History of Present Illness Reason for Visit: Lower abdominal pain. History of Present Illness: This is a 48-year-old female with a past medical history significant for ulcerative colitis, who is status post proctocolectomy with J-pouch reconstruction at [facility] in . The patient has had multiple small bowel obstructions including as recently as september of this year, also history of ovarian cyst on left side which was drained few years ago comes in with abdominal pain localized to the ovarian areas diffirent from her last admission for the SBO. Later once in ER she had nausea and vomiting. Her symptoms are much better after NG tube placement and drainage of over 500cc fluid. PAST MEDICAL HISTORY: Ulcerative colitis diagnosed at age 20 s/p proctocolectomy with J-pouch reconstruction at [facility] in [place] . Gastroesophageal reflux disease Migraines Pancreatitis in past Recurrent small bowel obstructions anastomotic stenosis s/p dilation in February 2018 Left ovarian cyst s/p drainage. Depression PAST SURGICAL HISTORY: Proctocolectomy with ileostomy and ileostomy reversal in 1992 and 1993. anastomotic stenosis s/p multiple dilation with last one in February 2018 She has had a section, myomectomy, and has had multiple perirectal abscess drainages as well as surgical treatment of anorectal fistula and fissure. Left ovarian cyst drainage FAMILY HISTORY: Notable for mother with aneurysm and acoustic neuroma. There is also history of colitis and celiac disease. at age 70. 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 She does not use tobacco or drugs and rarely drinks alcohol. Allergies Allergy/AdvReac Type Severity Reaction Status Date / Time levofloxacin Allergy Itching Verified 10/02/18 10:16 metronidazole [From Flagyl] Allergy Rash Verified 10/02/18 10:16 Sulfa (Sulfonamide Allergy Rash Verified 10/02/18 10:16 Antibiotics) Home Medications Medication Instructions Recorded Confirmed Type Omeprazole CAP (NF) [Prilosec CAP* 20 mg PO DAILY 07/13/18 02/04/19 History 20 MG] L. Rhamnosus GG/Inulin [Culturelle 1 each PO DAILY 10/02/18 02/04/19 History Probiotics Capsule] LoraTADine TAB(NF) [Claritin 10 MG 10 mg PO DAILY 02/04/19 02/04/19 History TAB(NF)] buPROPion TAB* [Wellbutrin TAB*] 150 mg PO BID 02/04/19 02/04/19 History Review of Systems - Measurements Intake and Output: Intake and Output Last 24 Hours 02/02/19 02/03/19 02/04/19 02/05/19 06:59 06:59 06:59 06:59 Weight 116 lb - Review of Systems Constitutional Symptoms: Negative: Fever Cardiology: Negative: Chest Pain, Shortness of Breath Gastroenterology: Positive: Abdominal Pain, Nausea, Vomiting Negative: Constipation, Diarrhea Objective Vital Signs - 8 hr 02/04/19 02/04/19 02/04/19 14:46 15:00 15:16 Pulse Rate 71 67 76 Blood Pressure 136/83 133/84 (mmHg) O2 Sat by Pulse 98 95 96 Oximetry 02/04/19 02/04/19 02/04/19 15:46 16:00 16:16 Pulse Rate 68 67 71 Blood Pressure 124/80 123/72 (mmHg) O2 Sat by Pulse 96 94 97 Oximetry 02/04/19 02/04/19 02/04/19 17:00 17:16 17:46 Pulse Rate 70 65 68 Blood Pressure 120/85 120/82 (mmHg) O2 Sat by Pulse 100 95 94 Oximetry 02/04/19 02/04/19 02/04/19 18:00 18:16 18:46 Pulse Rate 66 67 63 Blood Pressure 120/81 131/91 (mmHg) O2 Sat by Pulse 95 95 97 Oximetry 02/04/19 02/04/19 02/04/19 19:01 19:17 19:47 Pulse Rate 63 64 Blood Pressure 120/84 136/91 (mmHg) O2 Sat by Pulse 94 96 Oximetry 02/04/19 02/04/19 02/04/19 20:01 20:17 20:47 Pulse Rate 67 61 61 Blood Pressure 139/89 131/92 (mmHg) O2 Sat by Pulse 95 93 93 Oximetry 02/04/19 02/04/19 02/04/19 21:01 21:17 21:47 Pulse Rate 64 72 64 Blood Pressure 131/88 127/85 (mmHg) O2 Sat by Pulse 99 92 93 Oximetry 02/04/19 22:00 Pulse Rate 66 Blood Pressure (mmHg) O2 Sat by Pulse 92 Oximetry Oxygen Devices in Use Now: None Appearance: NG in place with over 500cc drainage. Eyes: No Scleral Icterus, PERRLA Ears/Nose/Mouth/Throat: NL Teeth, Lips, Gums, Clear Oropharnyx, Mucous Membranes Moist Neck: NL Appearance and Movements; NL JVP, Trachea Midline Respiratory: Clear to Auscultation Cardiovascular: NL Sounds; No Murmurs; No JVD, RRR, No Edema Abdominal: - - Soft but diffuse tenderness only to deep palpation. Extremities: No Edema Skin: No Rash or Ulcers Neurological: Alert and Oriented x 3, NL Sensation, NL Gait, NL Muscle Strength and Tone Nutrition: Taking PO's Result Diagrams: 02/04/19 11:55 02/04/19 11:55 Diagnostic Imaging: - CT abdomen/pelvis Impression: Prominent intrahepatic ducts without change since previous exam. Moderately. distended stomach is noted. Moderately distended colon is noted. Cystic lesion in the left adnexa is unchanged. No definite abscess is noted. - Transvaginal ultrasound Impression: Complex cystic LEFT adnexal region mass concerning for potential ovarian epithelial. neoplasm. Consider contrast-enhanced gynecologic protocol MRI pelvis for further. assessment. Negative for free pelvic fluid. Multiple small uterine fibroids and potential small endometrial polyp. Assess/Plan/Problems-Billing Assessment: 48yoF with ulcerative colitis and ovarian cyst with multiple SBO and multiple abdominal surgeries. Seen by SENIOR LINUX ADMINISTRATOR suggests symptoms unlikely from ovarian cyst. Given symptoms resolved with NG drainage likely some SBO not noted in CT vs illeus. - Patient Problems (1) SBO (small bowel obstruction) Current Visit: No Status: Acute Code(s): K56.609 - UNSP INTESTNL OBST, UNSP TO PARTIAL VERSUS COMPLETE OBST SNOMED Code(s): 515159592 Comment: SBO vs illeus NG drainage to low intermittant suction. NPO. IVF. Surgeon consult. Analgesic/Anti-emetic PRN. (2) Ulcerative colitis Current Visit: No Status: Acute Code(s): K51.90 - ULCERATIVE COLITIS, UNSPECIFIED, WITHOUT COMPLICATIONS SNOMED Code(s): 62422512 Comment: s/p colectomy (3) Left ovarian cyst Current Visit: Yes Status: Acute Code(s): N83.202 - UNSPECIFIED OVARIAN CYST , LEFT SIDE SNOMED Code(s): 58052283 Comment: S/P Drainage. (4) Depression Current Visit: Yes Status: Acute Code(s): F32.9 - MAJOR DEPRESSIVE DISORDER , SINGLE EPISODE, UNSPECIFIED SNOMED Code(s): 40987249 Comment: Hold PO meds given NG drainage. (5) DVT prophylaxis Current Visit: No Status: Acute Code(s): VRV6036 - SNOMED Code(s): 633366837 Comment: - SCDs.
[2019-02-04] MEDS ORDERED: Morphine INJ* 2 MG/ML 1 ML SYRINGE (TWO MG - NEW SYRINGE VERSION) IV PRN (22:48)
[2019-02-04] MEDS ORDERED: Ondansetron INJ* 2 MG/ML VIAL IV PRN (22:48)
[2019-02-05] MEDS: NS 0.9% 1000 ML** 1,000 ML IV SCH ×2 (00:06→12:43)
[2019-02-05] MEDS: Pantoprazole IV* 40 MG IV SCH ×2 (01:56→09:17)
[2019-02-05 06:24] LABS: ABS Lymphocytes 1.4 10^3/ul (1.0-4.8); ABS Monocytes 0.6 10^3/ul (0-0.8); ABS Neutrophils 5.7 10^3/ul (1.5-7.7); Eosinophil % 0.5 %; Hematocrit 42 % (35-47); Lymphocyte % 18.6 %; Mean Corpuscular HGB Conc 33 g/dL (31-36); Mean Corpuscular Hemoglobin 30 pg (27-31); Mean Corpuscular Volume 89 fL (80-97); Mean Platelet Volume 7.2 fL (7.4-10.4); Platelet Count 395 10^3/uL (150-450); Red Blood Count 4.77 10^6 /uL (3.70-4.87); Red Cell Distribution Width 13 % (10-15); White Blood Count 7.7 10^3/uL (3.5-10.8)
[2019-02-05 06:44] LABS: BUN/Creatinine Ratio 17.1 (8-20); Calcium 8.7 mg/dL (8.6-10.3); EGFR African American 107.6 (>60); EGFR Non-African American 88.9 (>60); Potassium 3.7 mmol/L (3.5-5.0)
--- NOTE | 2019-02-05 12:14 | PN ---
Subjective Date of Service: 02/05/19 Interval History: Patient seen, feels better this morning with the NGT. currently NPO. there was about 280 cc of tia aspirate. denies abdominal pain today. no fever or chills. Past Medical History: Unchanged from Admission Objective Active Medications: Sodium Chloride (Ns 0.9% 1000 Ml) 1,000 mls @ 100 mls/hr IV PER RATE [facility] Last Admin: 02/05/19 00:06 Dose: 100 mls/hr Morphine Sulfate (Morphine Inj (Syringe))*) 2 mg IV Q4H PRN PRN Reason: PAIN - MODERATE TO SEVERE Ondansetron HCl (Zofran Inj*) 4 mg IV Q4H PRN PRN Reason: NAUSEA/VOMITING Last Admin: 02/04/19 23:44 Dose: 4 mg Pantoprazole Sodium (Protonix Iv*) 40 mg IV DAILY [facility] Last Admin: 02/05/19 09:17 Dose: 40 mg Vital Signs - 8 hr 02/05/19 02/05/19 07:15 08:00 Temperature 98.4 F Pulse Rate 71 Respiratory 19 18 Rate Blood Pressure 122/67 (mmHg) O2 Sat by Pulse 98 Oximetry Oxygen Devices in Use Now: None Appearance: Awake, Alert. no distress. Eyes: No Scleral Icterus, - - EOMI Ears/Nose/Mouth/Throat: Clear Oropharnyx, Mucous Membranes Moist Neck: NL Appearance and Movements; NL JVP, Trachea Midline Respiratory: Symmetrical Chest Expansion and Respiratory Effort, Clear to Auscultation Cardiovascular: NL Sounds; No Murmurs; No JVD, No Edema Abdominal: NL Sounds; No Tenderness; No Distention Extremities: No Edema Skin: No Rash or Ulcers Neurological: Alert and Oriented x 3, NL Muscle Strength and Tone Result Diagrams: 02/05/19 05:52 02/05/19 05:52 Diagnostic Imaging: - CT abdomen/pelvis Impression: Prominent intrahepatic ducts without change since previous exam. Moderately. distended stomach is noted. Moderately distended colon is noted. Cystic lesion in the left adnexa is unchanged. No definite abscess is noted. - Transvaginal ultrasound Impression: Complex cystic LEFT adnexal region mass concerning for potential ovarian epithelial. neoplasm. Consider contrast-enhanced gynecologic protocol MRI pelvis for further. assessment. Negative for free pelvic fluid. Multiple small uterine fibroids and potential small endometrial polyp. Assess/Plan/Problems-Billing Assessment: 48 y/o Female with ulcerative colitis and ovarian cyst with multiple SBO and multiple abdominal surgeries. Seen by CLOTH SANDER suggests symptoms unlikely from ovarian cyst. Given symptoms resolved with NG drainage likely some SBO not noted in CT vs illeus. - Patient Problems (1) SBO (small bowel obstruction) Current Visit: No Status: Acute Code(s): K56.609 - UNSP INTESTNL OBST, UNSP TO PARTIAL VERSUS COMPLETE OBST SNOMED Code(s): 219580679 Comment: - SBO vs [place]us s/p NG drainage to low intermittant suction. - Minimal drainage at this time. Will advance to clear liquid and clamp NGT, if she tolerates will advance to full liquid tonight. (2) Depression Current Visit: Yes Status: Acute Code(s): F32.9 - MAJOR DEPRESSIVE DISORDER , SINGLE EPISODE, UNSPECIFIED SNOMED Code(s): 71756365 Comment: - Resume buproprion now that NGT on clamps (3) GERD (gastroesophageal reflux disease) Current Visit: No Status: Acute Code(s): K21.9 - GASTRO-ESOPHAGEAL REFLUX DISEASE WITHOUT ESOPHAGITIS SNOMED Code(s): 890395829 Comment: - Continue pantoprazole 40 mg IV daily. (4) Ulcerative colitis Current Visit: No Status: Acute Code(s): K51.90 - ULCERATIVE COLITIS, UNSPECIFIED, WITHOUT COMPLICATIONS SNOMED Code(s): 31898053 Comment: - s/p colectomy (5) DVT prophylaxis Current Visit: No Status: Acute Code(s): BGF3826 - SNOMED Code(s): 159637509 Comment: - SCDs.
[2019-02-05] MEDS ORDERED: Phenol 1.4% Spray* 177 ML BTL MT PRN (14:21)
--- NOTE | 2019-02-05 19:32 | PN ---
Progress Note - Progress Note Date of Service: 02/05/19 Note: Brief Surgical Note (full consult dictated) 48 yo female s/p total proctocolectomy with J-pouch for UC and s/p balloon dilation of J-pouch for stenosis 02/2018, admitted w/ SBO in September,, treated conservatively w/ resolution, presents w/ lower abd pain w/ assoc nausea and vomiting and CT showing moderately dilated SB loops. An NG tube was placed upon admission which drained ~500 ml and none since. She has been feeling better and has passed flatus and had multiple BMs. She was seen and examined earlier by Dr. Islas. Her NG was removed this afternoon and she was begun on a liquid diet which she seems to be tolerating. She could likely be discharged on a liquid transitioning to low residue diet tomorrow and followup with the colorectal surgeon in [place] for whom she already has a referral. Case discussed w/ Dr. Islas.
--- NOTE | 2019-02-05 19:32 | PN ---
Progress Note - Progress Note Date of Service: 02/05/19 Note: Surgery Progress Note Patient is a 48 yo F with a history of ulcerative colitis, s/p a two staged proctocolectomy with J pouch in 1992- who presents with 2 days of abdominal pain, decreased appetite and decreased bowel movements. The patient says since her surgery in the she has had 3-4 small bowel obstructions. Her most recent ones were last summer, then September 2018, and this this present episode. She had her surgeries done by Dr. Colbert at the [facility] in [facility] and last went to see him last summer, where he diagnosed her with stenosis of the ileo-anal anastomosis. He dilated this and she said she felt much better. Most recently she was doing well up until 2 days ago. She says she started having pain but no emesis. She usually has 7-8 bowel movements a day but was having more like 2-3. She came to the ED where CT scan was consistent with a bowel obstruction. There was also concern that her pain could have been from a large ovarian cyst, and gynecology was consulted. She was admitted to medicine and an NGT was placed. Dr. Jenkins from surgery was consulted and I examined the patient today. Please see full consultation report from DEACON Kenney. I have reviewed her imaging, labs and examined the patient. On exam she is distended and mildly tender. Her NGT was removed this evening and she has been tolerated clears. She feels much better today and is having more normal bowel movements. She mostly likely has either internal adhesions, or more likely re- stricturing of her ileo-anal anastomosis. She was referred by Dr. Colbert to a colorectal surgeon in [place] (her insurance no longer covers [facility]) and is awaiting to hear from them for an outpatient appointment. If she continues to be able to tolerate a diet, she should be able to be discharged with a full liquids/low-residue diet and follow up with her colorectal surgeon in [place] for possible repeat dilatation of the anal anastomosis.
[2019-02-05] MEDS: buPROPion TAB* 75 MG PO SCH (20:02)
--- NOTE | 2019-02-05 20:49 | CONS ---
CC: Dr. Matilda Rodriguez * SURGICAL CONSULT NOTE: DATE OF CONSULT: 02/05/19 ATTENDING SURGEON: Dr. Jen Islas. CHIEF COMPLAINT: Abdominal pain. HISTORY OF PRESENT ILLNESS: This is a 48-year-old female status post total proctocolectomy for ulcerative colitis with J-pouch reconstruction done in 1992. The patient was admitted in September of this year for small bowel obstruction, which resolved with conservative treatment. She was fine in the interim, though tried to maintain a low-residue diet. More recently, she had been eating more fruit and presented to the ED with lower abdominal pain with associated nausea and vomiting. She denies fever or chills. She reports that pain was steady and that increased with movement. At its peak, she rated it at 7 to 8/10. She states that she has been having normal bowel movements and flatus. An NG tube was placed upon admission with drainage of 500 cc and little to none since then. She states that the current episode feels different than the small bowel obstruction in September. She has also had some separate right lower back pain. She is seen earlier in the day by Dr. Islas and most recently this evening by myself. Her NG tube has since been removed and she has been started on liquid diet, which she seems to be tolerating. She has continued to pass flatus and has had multiple bowel movements. PAST MEDICAL HISTORY: Ulcerative colitis with surgery as noted above, GERD, migraines, history of gallstone pancreatitis and status post cholecystectomy, recurrent small bowel obstructions and she is status post dilatation of her J- pouch stenosis in February 2018 with significant improvement thereafter. She has a known left ovarian cyst, which has been drained percutaneously at least once ( see current CT report), depression. PAST SURGICAL HISTORY: As noted above. Also , myomectomy for uterine fibroids, and multiple perirectal abscess drainages as well as surgical treatment of anorectal fistula and fissure, left ovarian cyst drainage. CURRENT MEDICATIONS: Include: 1. Omeprazole. 2. Probiotic supplement. 3. Bupropion. 4. Loratadine. ALLERGIES: Are noted. FAMILY HISTORY: As noted per her admission history and physical. SOCIAL HISTORY: As noted per her admission history and physical. PHYSICAL EXAM: Vital Signs: Height 5 feet 3 inches, weight 123 pounds, temperature 97.6 (down from 99), blood pressure 120/80, pulse 80, respirations 20, room air saturation 96%. General: A well-nourished, somewhat thin, but otherwise well-appearing female in no acute distress. Skin: Warm and dry, no suspicious rashes or lesions. HEENT: Unremarkable. Heart: Regular rate and rhythm. No murmur noted. Lungs: Clear to auscultation. No wheezes. Abdomen : Multiple well- healed surgical scars. Mild distention. Bowel sounds are normal to hyperactive. Soft. Mild tenderness only in the suprapubic area, slightly greater to the right versus left. No palpable masses, organomegaly, or hernias. No significant CVA tenderness. DIAGNOSTIC STUDIES/LAB DATA: Of note, CBC on admission essentially normal with repeat this morning also normal. Comprehensive metabolic profile normal as well as lipase and high normal CRP at 7.9, lactic acid on admission was 1.1. Repeat basic metabolic this morning is essentially normal. CT scan was reviewed as well as plain film of the abdomen today showing moderately dilated small bowel loops. There is a left ovarian cystic mass, see separate report. The patient has been following with the makeup artist regularly for this. IMPRESSION: Partial small bowel obstruction, resolving. PLAN: The patient will progress gradually from liquid diet to low residue as tolerated and hopefully be discharged from the hospital tomorrow. She has referral already in place to be seen by, I believe, Dr. Barksdale, colorectal surgeon in [place]. We will follow while she is in the hospital. She was seen and examined by Dr. Islas earlier today and will be seen for followup tomorrow as well. At the present time, there are no surgical interventions required. The case was discussed with Dr. Islas. DEACON WEBER [id number]/[facility] #: [id number] [facility]
[2019-02-06] MEDS: Pantoprazole IV* 40 MG IV SCH ×2 (07:26→09:54)
[2019-02-06] MEDS: buPROPion TAB* 75 MG PO SCH (07:26)
[2019-02-06 08:27] LABS: ABS Eosinophils 0.3 10^3/ul (0-0.6); ABS Lymphocytes 1.5 10^3/ul (1.0-4.8); ABS Monocytes 0.5 10^3/ul (0-0.8); ABS Neutrophils 4.2 10^3/ul (1.5-7.7); Eosinophil % 4.9 %; Hematocrit 42 % (35-47); Hemoglobin 13.8 g/dL (12.0-16.0); Lymphocyte % 22.7 %; Mean Corpuscular HGB Conc 33 g/dL (31-36); Mean Corpuscular Hemoglobin 30 pg (27-31); Mean Corpuscular Volume 89 fL (80-97); Mean Platelet Volume 7.1 fL (7.4-10.4); Platelet Count 387 10^3/uL (150-450); Red Blood Count 4.66 10^6 /uL (3.70-4.87); Red Cell Distribution Width 13 % (10-15); White Blood Count 6.6 10^3/uL (3.5-10.8)
--- NOTE | 2019-02-06 08:35 | PN ---
Progress Note - Progress Note Date of Service: 02/06/19 Note: Surgery Progress Note S: Patient feels much better today. Has had 6 bowel movements yesterday and flatus. Pain is almost gone. She tolerated full liquids last night for dinner. O: Vital Signs: Temp Pulse Resp BP Pulse Ox 98.2 F 60 16 108/63 97 02/06/19 04:32 02/06/19 04:32 02/06/19 04:32 02/06/19 04:32 02/06/19 04:32 Laboratory Last Values WBC 6.6 10^3/uL (3.5-10.8) 02/06/19 07:19 RBC 4.66 10^6 /uL (3.70-4.87) 02/06/19 07:19 Hgb 13.8 g/dL (12.0-16.0) 02/06/19 07:19 Hct 42 % (35-47) 02/06/19 07:19 MCV 89 fL (80-97) 02/06/19 07:19 MCH 30 pg (27-31) 02/06/19 07:19 MCHC 33 g/dL (31-36) 02/06/19 07:19 RDW 13 % (10-15) 02/06/19 07:19 Plt Count 387 10^3/uL (150-450) 02/06/19 07:19 MPV 7.1 fL (7.4-10.4) L 02/06/19 07:19 Neut % (Auto) 63.6 % 02/06/19 07:19 Lymph % (Auto) 22.7 % 02/06/19 07:19 [place] % (Auto) 8.1 % 02/06/19 07:19 Eos % (Auto) 4.9 % 02/06/19 07:19 Baso % (Auto) 0.7 % 02/06/19 07:19 Absolute Neuts (auto) 4.2 10^3/ul (1.5-7.7) 02/06/19 07:19 Absolute Lymphs (auto) 1.5 10^3/ul (1.0-4.8) 02/06/19 07:19 Absolute Monos (auto) 0.5 10^3/ul (0-0.8) 02/06/19 07:19 Absolute Eos (auto) 0.3 10^3/ul (0-0.6) 02/06/19 07:19 Absolute Basos (auto) 0.0 10^3/ul (0-0.2) 02/06/19 07:19 Absolute Nucleated RBC 0.0 10^3/ul 02/06/19 07:19 Nucleated RBC % 0.0 02/06/19 07:19 Sodium 138 mmol/L (135-145) 02/05/19 05:52 Potassium 3.7 mmol/L (3.5-5.0) 02/05/19 05:52 Chloride 100 mmol/L (101-111) L 02/05/19 05:52 Carbon Dioxide 28 mmol/L (22-32) 02/05/19 05:52 Anion Gap 10 mmol/L (2-11) 02/05/19 05:52 BUN 12 mg/dL (6-24) 02/05/19 05:52 Creatinine 0.70 mg/dL (0.51-0.95) 02/05/19 05:52 Est GFR ( Amer) 107.6 (>60) 02/05/19 05:52 Est GFR (Non-Af Amer) 88.9 (>60) 02/05/19 05:52 BUN/Creatinine Ratio 17.1 (8-20) 02/05/19 05:52 Glucose 83 mg/dL (70-100) 02/05/19 05:52 Lactic Acid 1.1 mmol/L (0.5-2.0) 02/04/19 11:55 Calcium 8.7 mg/dL (8.6-10.3) 02/05/19 05:52 Total Bilirubin 0.40 mg/dL (0.2-1.0) 02/04/19 11:55 AST 22 U/L (13-39) 02/04/19 11:55 ALT 16 U/L (7-52) 02/04/19 11:55 Alkaline Phosphatase 60 U/L (34-104) 02/04/19 11:55 C-Reactive Protein 7.89 mg/L (<8.01) 02/04/19 11:55 Total Protein 6.9 g/dL (6.4-8.9) 02/04/19 11:55 Albumin 4.1 g/dL (3.2-5.2) 02/04/19 11:55 Globulin 2.8 g/dL (2-4) 02/04/19 11:55 Albumin/Globulin Ratio 1.5 (1-3) 02/04/19 11:55 Lipase 17 U/L (11.0-82.0) 02/04/19 11:55 Urine Color Yellow 02/04/19 11:52 Urine Appearance Clear 02/04/19 11:52 Urine pH 5.0 (5-9) 02/04/19 11:52 Ur Specific [place] 1.008 (1.010-1.030) L 02/04/19 11:52 Urine Protein Negative (Negative) 02/04/19 11:52 Urine Ketones Negative (Negative) 02/04/19 11:52 Urine Blood Negative (Negative) 02/04/19 11:52 Urine Nitrate Negative (Negative) 02/04/19 11:52 Urine Bilirubin Negative (Negative) 02/04/19 11:52 Urine Urobilinogen Negative (Negative) 02/04/19 11:52 Ur Leukocyte Esterase Negative (Negative) 02/04/19 11:52 Urine Glucose Negative (Negative) 02/04/19 11:52 Intake & Output 02/05/19 02/06/19 02/06/19 22:59 06:59 14:59 Intake Total 2242 0 Output Total 0 Balance 2242 0 Intake: IV Fluids 1042 NS (0.9%) 1042 Oral 1200 0 Output: Urine 0 Other: # Bowel Movements 0 0 # Voids 0 Physical exam: Abdomen- soft, minimally distended, slightly tender below umbilicus A/P: 48 F with UC s/p total proctocolectomy and J pouch in 1992- who presents with resolving bowel obstruction. - Recommend advancing diet. I discussed diet with patient and she is very familiar with regulating her diet with fulls and low fiber. If she tolerates diet she could possibly be discharged later today, which she would like to do. She should follow up with her referred colorectal surgeon in [place]. - Surgery will sign off. Please feel free to call with any questions.
[2019-02-06 08:47] LABS: BUN/Creatinine Ratio 11.5 (8-20); Calcium 8.9 mg/dL (8.6-10.3); EGFR Non-African American 78.5 (>60); Magnesium 2.3 mg/dL (1.9-2.7); Phosphorus 3.5 mg/dL (2.5-5.0); Potassium 3.9 mmol/L (3.5-5.0)
[2019-02-06] MEDS ORDERED: Pantoprazole TAB * 40 MG TAB PO SCH (10:00)
[2019-02-06 16:21] VITALS: BP 114/81
--- NOTE | 2019-02-06 16:34 | PN ---
Subjective Date of Service: 02/06/19 Interval History: patient tolerating her diet well full liquid. advance to soft mechanical diet. no nausea. passed stool and passing gas. non tender on exam Past Medical History: Unchanged from Admission Objective Active Medications: Bupropion HCl (Wellbutrin Tab*) 150 mg PO BID [facility] Last Admin: 02/06/19 07:26 Dose: 150 mg Morphine Sulfate (Morphine Inj (Syringe))*) 2 mg IV Q4H PRN PRN Reason: PAIN - MODERATE TO SEVERE Ondansetron HCl (Zofran Inj*) 4 mg IV Q4H PRN PRN Reason: NAUSEA/VOMITING Last Admin: 02/04/19 23:44 Dose: 4 mg Pantoprazole Sodium (Protonix Tab*) 40 mg PO DAILY [facility] Last Admin: 02/06/19 10:47 Dose: 40 mg Phenol/Menthol (Chloroseptic Throat [place]*) 1 spray MT TID PRN PRN Reason: SORE THROAT Last Admin: 02/05/19 15:28 Dose: 1 spray Vital Signs - 8 hr 02/06/19 02/06/19 11:15 15:15 Temperature 97.5 F 98.2 F Pulse Rate 69 79 Respiratory 17 18 Rate Blood Pressure 112/79 114/81 (mmHg) O2 Sat by Pulse 100 95 Oximetry Oxygen Devices in Use Now: None Appearance: awake, no acute distress Eyes: No Scleral Icterus, - - EOMI Ears/Nose/Mouth/Throat: NL Teeth, Lips, Gums, Mucous Membranes Moist Neck: Trachea Midline Respiratory: Symmetrical Chest Expansion and Respiratory Effort, Clear to Auscultation Cardiovascular: NL Sounds; No Murmurs; No JVD, No Edema Extremities: No Edema Skin: No Rash or Ulcers Neurological: Alert and Oriented x 3 Result Diagrams: 02/06/19 07:19 02/06/19 07:19 Diagnostic Imaging: - CT abdomen/pelvis Impression: Prominent intrahepatic ducts without change since previous exam. Moderately. distended stomach is noted. Moderately distended colon is noted. Cystic lesion in the left adnexa is unchanged. No definite abscess is noted. - Transvaginal ultrasound Impression: Complex cystic LEFT adnexal region mass concerning for potential ovarian epithelial. neoplasm. Consider contrast-enhanced gynecologic protocol MRI pelvis for further. assessment. Negative for free pelvic fluid. Multiple small uterine fibroids and potential small endometrial polyp. Assess/Plan/Problems-Billing Assessment: 48 y/o Female with ulcerative colitis and ovarian cyst with multiple SBO and multiple abdominal surgeries. Seen by RIVET STICKER suggests symptoms unlikely from ovarian cyst. Given symptoms resolved with NG drainage likely some SBO not noted in CT vs illeus. - Patient Problems (1) SBO (small bowel obstruction) Current Visit: No Status: Acute Code(s): K56.609 - UNSP INTESTNL OBST, UNSP TO PARTIAL VERSUS COMPLETE OBST SNOMED Code(s): 090299186 Comment: - SBO vs illeus her NG removed. - tolerated diet well. positive BM and flatus. Will advance to soft mechanical and if tolerate well will discharge home (2) Depression Current Visit: Yes Status: Acute Code(s): F32.9 - MAJOR DEPRESSIVE DISORDER , SINGLE EPISODE, UNSPECIFIED SNOMED Code(s): 12833822 Comment: - Resume buproprion (3) GERD (gastroesophageal reflux disease) Current Visit: No Status: Acute Code(s): K21.9 - GASTRO-ESOPHAGEAL REFLUX DISEASE WITHOUT ESOPHAGITIS SNOMED Code(s): 309353731 Comment: - Continue pantoprazole 40 mg po daily. (4) Ulcerative colitis Current Visit: No Status: Acute Code(s): K51.90 - ULCERATIVE COLITIS, UNSPECIFIED, WITHOUT COMPLICATIONS SNOMED Code(s): 94228191 Comment: - s/p colectomy (5) DVT prophylaxis Current Visit: No Status: Acute Code(s): BAA0077 - SNOMED Code(s): 907111279 Comment: - SCDs.
--- NOTE | 2019-02-06 20:19 | DS ---
CC: Dr. Matilda Rodriguez DISCHARGE SUMMARY: DATE OF ADMISSION: 02/04/19 DATE OF DISCHARGE: 02/06/19 DISCHARGE DIAGNOSES: 1. Partial small-bowel obstruction versus ileus. 2. History of ulcerative colitis. 3. History of left ovarian cyst. 4. Depression. 5. Gastroesophageal reflux disease. 6. Migraine headache. HOSPITAL COURSE: The patient presented to [facility] on 02/04/19 for progressive increase d abdominal pain and nausea and vomiting. She was seen and evaluated in the ER. She had initial radha gnostic study including CT scan of the abdomen, which showed dilation of her colon and small bowel. Therefore, she was admitted for a partial small-bowel obstruction and ileus. An NG tube was placed. She remained on the floor and her symptoms significantly improved after the NG tube was placed, and I saw the patient on the following day on 02/05/19. Her abdomen exam was benign, positive bowel sound . I did request to have the NG tube clamped, advance from liquid to clear and full liquid. Then Anne-Marie rivera saw the patient later recommended to discontinue the NG tube, which was done, and I saw the kathleen ent today. She has had about several bowel movement and flatus. I advanced the diet to soft mechani jefferson and will reassess the patient. If she remains stable by the afternoon around suppertime and tole rates a p.o. diet, she is deemed stable to be released home in stable condition. PHYSICAL EXAMINATION: Vital Signs: Temperature 98.2, pulse 79, respiratory rate 18, satting 95%, bl ood pressure 114/81, satting 95%. General: She is awake, alert, pleasant, in no apparent distress. Head and Neck: Normocephalic, atraumatic. Supple. Lungs: Clear to auscultation bilaterally. Abd omen: Positive bowel sounds. Soft, nontender, nondistended. No rebound. No guarding. Extremities: No pitting edema. 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 DIAGNOSTIC STUDIES/LAB DATA: Multiple CBCs unremarkable. Chemistry: Electrolytes within normal. U rinalysis negative. Diagnostic Imaging: She had abdominal CT and pelvis, which revealed a prominent intrahepatic duct. No change from previous exam, distended stomach, and moderately distended colon. A transvaginal ultrasound from 02/04/19 in the emergency room revealed a complex cyst in the left ova ry. Recommended to ACADEMIC SUCCESS COORDINATOR, who saw and evaluated the patient and did not suggest any further workup as outpatient. Followup chest x-ray on 02/04/19 reveals NG tube in place. No other acute finding. Abd ominal x-ray revealed dilated small-bowel suggestive of distal bowel obstruction just proximal to the anastomosis. Otherwise, no changes and was repeated again on 02/06/19 today this morning. She had no changes in her imaging, still has a distended large-bowel. However, clinically, she appears much b yandy, passing bowel, passing stool. Therefore, I agree that the patient is deemed stable for dischar ge if she is able to tolerate her diet. DISCHARGE MEDICATIONS: Continue her medications as follows: 1. Omeprazole 20 mg daily. 2. Loratadine 10 daily. 3. Probiotic. 4. Wellbutrin 150 b.i.d. DISCHARGE INSTRUCTIONS: Take all medications as prescribed. Adhere to low-residue soft mechanical d iet. Follow up with her colorectal surgeon in [place] within 1 to 2 weeks. Follow with primary care and PCP in 1 to 2 weeks. DISCHARGE DISPOSITION: Home. DISCHARGE CONDITION: Stable. [id number]/[facility] #: [id number]
== END 2019-02-06 17:50 | disposition home or self-care (01) | DRG 247 ==
LOC: ED 11:11 → MED 22:48
PROVIDERS: ADMIT Internal Medicine; ATTEND Internal Medicine
PROC: 0D9670Z Drainage of Stomach with Drainage Device, Via Natural or Artificial Opening (ICD-10-PCS; principal; 2019-02-04)
DX: K56.600 Partial intestinal obstruction, unspecified as to cause (principal); K56.7 Ileus, unspecified; K21.9 Gastro-esophageal reflux disease without esophagitis; G43.909 Migraine, unspecified, not intractable, without status migrainosus; F32.9 Major depressive disorder, single episode, unspecified; F90.9 Attention-deficit hyperactivity disorder, unspecified type; N83.202 Unspecified ovarian cyst, left side; Z82.49 Family history of ischemic heart disease and other diseases of the circulatory system; Z83.3 Family history of diabetes mellitus; Z90.49 Acquired absence of other specified parts of digestive tract; Z83.79 Family history of other diseases of the digestive system; Z88.1 Allergy status to other antibiotic agents; Z88.2 Allergy status to sulfonamides
CPT/HCPCS: 36415; 71045; 74018; 74177; 76830; 80048; 80053; 81003; 83605; 83690; 83735; 84100; 85025; 86140; 99284; A9270-GY; J2270; J2405; Q9967

== ENCOUNTER 2019-02-26 17:53 | Emergency (ER) | payer BC ==
[2019-02-26 18:21] LABS: Urine Appearance Clear; Urine Bacteria 1+ (Absent); Urine Bilirubin Negative (Negative); Urine Blood 1+ (Negative); Urine Color Straw; Urine Glucose Negative (Negative); Urine Ketones Negative (Negative); Urine Nitrite Negative (Negative); Urine Protein Negative (Negative); Urine Red Blood Cell 1+(3-5/hpf) (Absent); Urine Specific Gravity 1.006 (1.010-1.030); Urine Urobilinogen Negative (Negative); Urine White Blood Cell Trace(0-5/hpf) (Absent)
[2019-02-26] MEDS ORDERED: NS 0.9% 1000 ML** 1,000 ML IV ONE (19:02)
[2019-02-26] MEDS ORDERED: Ketorolac INJ* 30 MG/ML 1 ML VIAL IV PUSH ONE (19:02)
[2019-02-26 19:20] LABS: ABS Eosinophils 0.3 10^3/ul (0-0.6); ABS Lymphocytes 2.2 10^3/ul (1.0-4.8); ABS Monocytes 0.8 10^3/ul (0-0.8); ABS Neutrophils 7.4 10^3/ul (1.5-7.7); Eosinophil % 2.9 %; Hematocrit 40 % (35-47); Hemoglobin 13.9 g/dL (12.0-16.0); Lymphocyte % 20.3 %; Mean Corpuscular HGB Conc 35 g/dL (31-36); Mean Corpuscular Hemoglobin 31 pg (27-31); Mean Corpuscular Volume 88 fL (80-97); Mean Platelet Volume 6.5 fL (7.4-10.4); Nucleated Red Blood Cells % 0.1; Platelet Count 413 10^3/uL (150-450); Red Blood Count 4.56 10^6 /uL (3.70-4.87); Red Cell Distribution Width 13 % (10-15); White Blood Count 10.8 10^3/uL (3.5-10.8)
--- NOTE | 2019-02-26 19:20 | ED ---
GI/ HPI - HPI Summary HPI Summary: 48-year-old female presents with left flank pain today. She denies any chest pain or shortness of breath. Pain does not radiate to the front. Denies any injury. No loss of bowel or bladder. denies any saddle anesthesia. Denies any dysuria urgency or frequency. Denies any hematuria. No history of kidney stones. Has a history of small bowel obstruction. has been passing gas. Has had normal bowel movement. Denies taking anything for the pain. Denies any fevers. Admits to nausea but no vomiting. - History of Current Complaint Chief Complaint: EDFlankPain Time Seen by Provider: 02/26/19 18:49 Stated Complaint: LEFT LOWER BACK PAIN PER PT Pain Intensity: 10 - Additional Pertinent History Primary Care Physician: ROMULO - Allergy/Home Medications Allergies/Adverse Reactions: Allergies Allergy/AdvReac Type Severity Reaction Status Date / Time levofloxacin Allergy Itching Verified 10/02/18 10:16 metronidazole [From Flagyl] Allergy Rash Verified 10/02/18 10:16 Sulfa (Sulfonamide Allergy Rash Verified 10/02/18 10:16 Antibiotics) PMH/Surg Hx/FS Hx/Imm Hx Endocrine/Hematology History: Denies: Hx Diabetes Cardiovascular History: Denies: Hx Angina, Hx Atrial Fibrillation, Hx Cardiac Arrest, Hx Congestive Heart Failure, Hx Coronary Artery Disease, Hx Hypercholesterolemia, Hx Hypertension, Hx Myocardial Infarction, Hx Pacemaker/ICD, Hx Valvular Heart Disease Respiratory History: Reports: Other Respiratory Problems/Disorders - cough since april, Denies: Hx Asthma, Hx Chronic Obstructive Pulmonary Disease (COPD) GI History: Reports: Hx Gastroesophageal Reflux Disease, Other GI Disorders - hx colitis History: Denies: Hx Dialysis, Hx Renal Disease Sensory History: Denies: Hx Contacts or Glasses, Hx Hearing Aid Opthamlomology History: Denies: Hx Contacts or Glasses Neurological History: Reports: Hx Migraine Denies: Hx Headaches Psychiatric History: Reports: Hx Attention Deficit Hyperactivity Disorder Denies: Hx Panic Disorder - Cancer History Hx Chemotherapy: No Hx Radiation Therapy: No - Surgical History Surgery Procedure, Year, and Place: 11/1992 TOTAL COLECTOMY;. 09/1993 ILEOANAL PULL THRU;. 07/2004 ;. 02/2010 MYOMECTOMY;. MULTIPL PERIRECTAL ABCESSES AND ABDOMINAL ABCESSES WITH DRAININGS; Infectious Disease History: No Infectious Disease History: Denies: Traveled Outside the [place] in Last 30 Days - Family History Known Family History: Positive: Other - Colitis and Celiac Disease. Aneurysm in mother. Negative: Hypertension, Diabetes - Social History Alcohol Use: Rare Hx Substance Use: No Substance Use Type: Reports: None Hx Tobacco Use: No Smoking Status (MU): Never Smoked Tobacco Review of Systems Negative: Fever Negative: Chest Pain Negative: Shortness Of Breath Positive: Nausea. Negative: Abdominal Pain, Vomiting, Diarrhea Positive: flank pain. Negative: dysuria All Other Systems Reviewed And Are Negative: Yes Physical Exam Triage Information Reviewed: Yes Vital Signs On Initial Exam: Initial Vitals Temp Pulse Resp BP Pulse Ox 99.0 F 79 18 145/92 99 02/26/19 17:55 02/26/19 17:55 02/26/19 17:55 02/26/19 17:55 02/26/19 17:55 Vital Signs Reviewed: Yes Appearance: Positive: Well-Appearing Skin: Positive: Warm, Dry Head/Face: Positive: Normal Head/Face Inspection Eyes: Positive: Normal, EOMI, Conjunctiva Clear ENT: Positive: Pharynx normal Respiratory/Lung Sounds: Positive: Clear to Auscultation, Breath Sounds Present Cardiovascular: Positive: Normal, RRR Abdomen Description: Positive: Nontender, Soft, CVA Tenderness (L) Bowel Sounds: Positive: Present Musculoskeletal: Positive: Normal Neurological: Positive: Normal Psychiatric: Positive: Normal Diagnostics - Vital Signs Vital Signs Temp Pulse Resp BP Pulse Ox 02/26/19 17:55 99.0 F 79 18 145/92 99 - Laboratory Lab Results: Lab Results 02/26/19 Range/Units 18:05 Urine Color Straw Urine Appearance Clear Urine pH 5.0 (5-9) Ur Specific [place] 1.006 L (1.010-1.030) Urine Protein Negative (Negative) Urine Ketones Negative (Negative) Urine Blood 1+ A (Negative) Urine Nitrate Negative (Negative) Urine Bilirubin Negative (Negative) Urine Urobilinogen Negative (Negative) Ur Leukocyte Esterase Negative (Negative) Urine WBC (Auto) Trace(0-5/hpf) (Absent) Urine RBC (Auto) 1+(3-5/hpf) A (Absent) Urine Bacteria 1+ A (Absent) Urine Glucose Negative (Negative) Result Diagrams: 02/26/19 19:02/26/19 19:09 Lab Statement: Any lab studies that have been ordered have been reviewed, and results considered in the medical decision making process. - CT abd CT Interpretation Completed By: Radiologist Summary of CT Findings: IMPRESSION: 1. No evidence of renal stones or hydronephrosis. 2. No bowel obstruction. 3. Persistent cystic mass in the left adnexal region, which may be minimally. larger. Pelvic ultrasound correlation recommended. Re-Evaluation - Re-Evaluation First Eval Re-Evaluation Time: 20:05 Change: Improved Comment: feeling better GIGU Course/Dx - Course Course Of Treatment: 48-year-old female presents with left flank pain today. She denies any chest pain or shortness of breath. Pain does not radiate to the front. Denies any injury. No loss of bowel or bladder. denies any saddle anesthesia. Denies any dysuria urgency or frequency. Denies any hematuria. No history of kidney stones. Has a history of small bowel obstruction. has been passing gas. Has had normal bowel movement. Denies taking anything for the pain. Denies any fevers. Admits to nausea but no vomiting. On exam tenderness of left flank. wbc Normal. Urine shows potential uti. CT shows no stone. Does show an adnexal mass which the patient is aware of and has been following up about such. Patient is nontender in left lower quadrant. Gave Toradol feeling better. We'll treat for potential UTI without augmentin. Patient understands agrees the plan. - Diagnoses Differential Diagnoses - Female: Urinary Tract Infection, Ureteral Calculi, Other - strain Provider Diagnoses: Flank pain, UTI (urinary tract infection) Discharge - Sign-Out/Discharge Documenting (check all that apply): Patient Departure Patient Received Moderate/Deep Sedation with Procedure: No - Discharge Plan Condition: Good Disposition: HOME Prescriptions: Amoxicillin/Clavulanate TAB* [Augmentin TAB 875*] 875 mg PO BID #9 tab Patient Education Materials: Urinary Tract Infection in Women (ED) Referrals: Matilda Rodriguez MD [Primary Care Provider] - Additional Instructions: Take augmentin twice a day for 5 days, first dose given in ED drink plenty of fluids take tyenlol or ibuprofen every 6 hours for pain Follow up with primary in 5 days Return to ED if develop fever or any new or worsening symptoms - Billing Disposition and Condition Condition: GOOD Disposition: Home
[2019-02-26 19:36] LABS: Albumin 4.3 g/dL (3.2-5.2); Albumin/Globulin Ratio 1.4 (1-3); BUN/Creatinine Ratio 23.7 (8-20); C Reactive Protein 12.25 mg/L (<8.01); Calcium 9.3 mg/dL (8.6-10.3); EGFR African American 97.9 (>60); EGFR Non-African American 80.9 (>60); Potassium 3.7 mmol/L (3.5-5.0); Total Bilirubin 0.3 mg/dL (0.2-1.0); Total Protein 7.3 g/dL (6.4-8.9)
[2019-02-26 19:42] LABS: HCG Pregnancy 3.33 mIU/mL
[2019-02-26] MEDS ORDERED: Amoxicillin/Clavulanate TAB* 875 MG PO ONE (19:49)
[2019-02-26 20:12] VITALS: BP 118/75
== END 2019-02-26 20:20 | disposition home or self-care (01) ==
LOC: ED 17:53
DX: N39.0 Urinary tract infection, site not specified (principal); R10.32 Left lower quadrant pain; Z88.1 Allergy status to other antibiotic agents; Z88.2 Allergy status to sulfonamides
CPT/HCPCS: 36415; 74176; 80053; 81003; 81015; 83605; 84702; 85025; 86140; 87086; 96361; 96374; 99283; A9270-GY; J1885

== ENCOUNTER 2019-07-01 00:28 | Emergency (ER) | payer BC ==
--- OUTSIDE RECORDS SUMMARY | 2019-07-01 00:57 | XMS REPORT | Continuity of Care Document ---
:1970 External Reference #:[id number] Author Name Alfredo Oleary M.D. (transmitted by agent of provider Olena Shankar) Address [address] [address] Care Team Providers Name Role Phone Family & Childrens Services - Care Team Information Polo Coach [phone] Counseling Carlos Rincon MD - Surgery Care Team Information Polo Coach [phone] Sierra Stern MD - Psychiatry Care Team Information Polo Coach Aurora Hong MD - Obstetrics & Care Team Information Polo Coach Gynecology Matilda Rodriguez MD - Internal Care Team Information Polo Coach [phone] Medicine Carlos Barksdale MD - Colon & Care Team Information Polo Coach Rectal Surgery Problems Active Problems Provider Date Gastroesophageal reflux disease Filippo Luis M.D. Onset: 07/24/2011 Note: caused aspiration in lung Ulcerative colitis Filippo Luis M.D. Onset: 07/24/2011 Note: s/p ileoanal anastomosis ( J pouch ) Obstructive sleep apnea syndrome Filippo Luis M.D. Onset: 07/24/2011 Allergic rhinitis Filippo Luis M.D. 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 Nair FH: Aortic aneurysm Matilda Rodriguez M.D. 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 Onset: 08/31/2015 Migraine Matilda Rodriguez M.D. Onset: 07/20/2018 Postoperative seroma Alfredo Oleary M.D. Onset: 06/16/2019 Social History Type Date Description Comments Sex Unknown Tobacco Use Start: Unknown Never Smoked Cigarettes ETOH Use rarely Recreational Drug Use Never Used Drugs Tobacco Use Start: Unknown Patient has never smoked Smoking Status Reviewed: 06/16/19 Patient has never smoked Exercise Type/Frequency Does not exercise Allergies, Adverse Reactions, Alerts Active Allergies Reaction Severity Comments Date Sulfa Rash 01/29/2011 Levofloxacin hives rash 10/20/2013 Flagyl hives 02/23/2018 Medications Active Medications SIG Qnty Indications Ordering Provider Date Vitamin C 1000 MG Take one tablet Unknown 06/15/2019 once daily Women's Health Take one tablet Unknown 06/15/2019 Multivitamin once daily Culturelle Take one-two Unknown 10/02/2018 Capsules tablets daily Prilosec Take one tablet Unknown 07/13/[address] twice daily Fluticasone Propionate 1 squirt each 16gm J30.9 Matilda Rodriguez, 08/08/2014 nostril as needed M.D. 50mcg/Act Suspension Loratadine once a day for Unknown 10mg Capsules allergies hs History Medications Augmentin Twice Daily 9tabs Unknown 02/26/2019 - 04/02/2019 875-125mg Tablets Medications Administered in Office Medication SIG Qnty Indications Ordering Provider Date PPD Matilda Rodriguez M.D. 12/28/2013 Injection Immunizations CPT Code Status Date Vaccine Lot # [id number] Given 06/16/2019 Influenza Virus Vaccine, Quadrivalent, Split, Im Use [id number] Given 04/23/2017 Influenza Virus Vaccine, Quadrivalent, Split, [id number] Preservative Free [id number] Given 07/11/2016 Flu Vaccine NOS [id number] Given 08/21/2015 Tdap - Tetanus/Diptheria/Acellular Pertussis [id number] Given 04/11/2015 Influenza Virus Vaccine, Quadrivalent, Split, [id number] Preservative Free 10000 Given 04/03/2015 Influenza Virus Vaccine, Quadrivalent, Split, Preservative Free [id number] Given 05/18/2012 Fluvirin Im 3Yrs And Older [id number] Given 05/18/2012 Influenza Virus 3Yrs & Over 62797 Given 05/15/2010 Influenza Virus 3Yrs & Over [id number] Vital Signs Date Vital Result Comment 06/16/2019 9:46am Height 63.25 inches 5'3.25" Weight 119.12 lb Heart Rate 82 /min R. radial, regular BP Systolic Sitting 140 mmHg LA, reg cuff BP Diastolic Sitting 80 mmHg LA, reg cuff BMI (Body Mass Index) 20.9 kg/m2 04/07/2019 9:14am Height 63.25 inches 5'3.25" Weight 119.00 lb Heart Rate 82 /min BP Systolic Sitting 110 mmHg BP Diastolic Sitting 73 mmHg O2 % BldC Oximetry 98 % BMI (Body Mass Index) 20.9 kg/m2 Results Test Acquired Date Facility Test Result H/L Range Note CBC Auto 04/02/2019 [facility] White Blood 9.2 10^3/uL Normal 3.5-10.[address] [place] [address] [phone] Red Blood Count 4.56 10^6/uL Normal 3.70-4.87 Hemoglobin 13.9 g/dL Normal 12.0-16.0 Hematocrit 41 % Normal 35-47 Mean Corpuscular Volume 89 fL Normal 80-97 Mean Corpuscular Hemoglobin 30 pg Normal 27-31 Mean Corpuscular HGB Conc 34 g/dL Normal 31-36 Red Cell Distribution Width 13 % Normal 10-15 Platelet Count 415 10^3/uL Normal 150-450 Mean Platelet Volume 7.8 fL Normal 7.4-10.4 Abs Neutrophils 6.3 10^3/uL Normal 1.5-7.7 Abs Lymphocytes 1.8 10^3/uL Normal 1.0-4.8 Abs Monocytes 0.7 10^3/uL Normal 0-0.8 Abs Eosinophils 0.2 10^3/uL Normal 0-0.6 Abs Basophils 0.1 10^3/uL Normal 0-0.2 Abs Nucleated RBC 0.0 10^3/uL Granulocyte % 68.6 % Lymphocyte % 20.0 % Monocyte % 8.2 % Eosinophil % 2.6 % Basophil % 0.6 % Nucleated Red Blood Cells % 0.1 Laboratory test 04/02/2019 [facility] C Reactive 28.92 mg/L High <8.01 finding [address] [facility] [place] [address] [phone] Erythrocyte Sed Rate 34 mm/Hr High 0-19 Urinalysis Profile 04/02/2019 [facility] Urine Color Yellow [address] [place] [address] [phone] Urine Appearance Clear Urine Specific Walker 1.011 Normal 1.010-1.030 Urine pH 5.0 Normal 5-9 Urine Urobilinogen Negative Negative Urine Ketones Negative Negative Urine Protein Negative Negative Urine Leukocytes Negative Negative Urine Blood Negative Negative * * Abnormal Negative 1 Urine Nitrite Negative Negative Urine Bilirubin Negative Negative Urine Glucose Negative Negative Comp Metabolic 04/02/2019 [facility] Sodium 138 mmol/L Normal 135-145 Panel [address] [place] [address] [phone] Potassium 4.0 mmol/L Normal 3.5-5.0 Chloride 101 mmol/L Normal 101-111 Co2 Carbon Dioxide 32 mmol/L Normal 22-32 Anion Gap 5 mmol/L Normal 2-11 Glucose 88 mg/dL Normal 70-100 Blood Urea Nitrogen 13 mg/dL Normal 6-24 Creatinine 0.73 mg/dL Normal 0.51-0.95 BUN/Creatinine Ratio 17.8 Normal 8-20 Calcium 9.2 mg/dL Normal 8.6-10.3 Total Protein 7.2 g/dL Normal 6.4-8.9 Albumin 4.4 g/dL Normal 3.2-5.2 Globulin 2.8 g/dL Normal 2-4 Albumin/Globulin Ratio 1.6 Normal 1-3 Total Bilirubin 0.40 mg/dL Normal 0.2-1.0 Alkaline Phosphatase 81 U/L Normal 34-104 Alt 11 U/L Normal 7-52 Ast 19 U/L Normal 13-39 Egfr Non- 84.7 >60 Egfr 102.5 >60 2 Lipid Profile 04/01/2019 [facility] Triglycerides 123 mg/dL 3, 4 (Trig/Chol/HDL) [address] [place] [address] [phone] Cholesterol 167 mg/dL 5 HDL Cholesterol 69.5 mg/dL 6 LDL Cholesterol 73 mg/dL 7 Urine Culture And 02/26/2019 [facility] Urine Culture SEE RESULT [address] [place] [address] [phone] Laboratory test 02/26/2019 [facility] C Reactive 12.25 mg/L High <8.[address] [place] [address] [phone] HCG 3.33 mIU/mL 9 Comp Metabolic 02/26/2019 [facility] Sodium 137 mmol/L Normal 135-[address] [place] [address] [phone] Potassium 3.7 mmol/L Normal 3.5-5.0 Chloride 103 mmol/L Normal 101-111 Co2 Carbon Dioxide 27 mmol/L Normal 22-32 Anion Gap 7 mmol/L Normal 2-11 Glucose 91 mg/dL Normal 70-100 Blood Urea Nitrogen 18 mg/dL Normal 6-24 Creatinine 0.76 mg/dL Normal 0.51-0.95 BUN/Creatinine Ratio 23.7 High 8-20 Calcium 9.3 mg/dL Normal 8.6-10.3 Total Protein 7.3 g/dL Normal 6.4-8.9 Albumin 4.3 g/dL Normal 3.2-5.2 Globulin 3.0 g/dL Normal 2-4 Albumin/Globulin Ratio 1.4 Normal 1-3 Total Bilirubin 0.30 mg/dL Normal 0.2-1.0 Alkaline Phosphatase 70 U/L Normal 34-104 Alt 12 U/L Normal 7-52 Ast 17 U/L Normal 13-39 Egfr Non- 80.9 >60 Egfr 97.9 >60 10 CBC Auto 02/26/2019 [facility] White Blood 10.8 10^3/uL Normal 3.5-10.[address] [place] [address] [phone] Red Blood Count 4.56 10^6/uL Normal 3.70-4.87 Hemoglobin 13.9 g/dL Normal 12.0-16.0 Hematocrit 40 % Normal 35-47 Mean Corpuscular Volume 88 fL Normal 80-97 Mean Corpuscular Hemoglobin 31 pg Normal 27-31 Mean Corpuscular HGB Conc 35 g/dL Normal 31-36 Red Cell Distribution Width 13 % Normal 10-15 Platelet Count 413 10^3/uL Normal 150-450 Mean Platelet Volume 6.5 fL Low 7.4-10.4 Abs Neutrophils 7.4 10^3/uL Normal 1.5-7.7 Abs Lymphocytes 2.2 10^3/uL Normal 1.0-4.8 Abs Monocytes 0.8 10^3/uL Normal 0-0.8 Abs Eosinophils 0.3 10^3/uL Normal 0-0.6 Abs Basophils 0.0 10^3/uL Normal 0-0.2 Abs Nucleated RBC 0.0 10^3/uL Granulocyte % 68.7 % Lymphocyte % 20.3 % Monocyte % 7.7 % Eosinophil % 2.9 % Basophil % 0.4 % Nucleated Red Blood Cells % 0.1 Laboratory test 02/26/2019 [facility] Lactic Acid 0.9 mmol/L Normal 0.5-2.0 11 finding [address] [place] [address] [phone] Urinalysis 02/26/2019 [facility] Urine Color Straw Profile [address] [place] [address] [phone] Urine Appearance Clear Urine Specific Walker 1.006 Low 1.010-1.030 Urine pH 5.0 Normal 5-9 Urine Urobilinogen Negative Negative Urine Ketones Negative Negative Urine Protein Negative Negative Urine Leukocytes Negative Negative Urine Blood 1+ Abnormal Negative Urine Nitrite Negative Negative Urine Bilirubin Negative Negative Urine Glucose Negative Negative Urine White Blood Cell Trace(0-5/hpf) Absent Urine Red Blood Cell 1+(3-5/hpf) Abnormal Absent Urine Bacteria 1+ Abnormal Absent Urinalysis Profile 02/04/2019 [facility] Urine Color Yellow [address] [place] [address] [phone] Urine Appearance Clear Urine Specific Walker 1.008 Low 1.010-1.030 Urine pH 5.0 Normal 5-9 Urine Urobilinogen Negative Negative Urine Ketones Negative Negative Urine Protein Negative Negative Urine Leukocytes Negative Negative Urine Blood Negative Negative Urine Nitrite Negative Negative Urine Bilirubin Negative Negative Urine Glucose Negative Negative CBC Auto 02/04/2019 [facility] White Blood 8.5 10^3/uL Normal 3.5-10.[address] [place] [address] [phone] Red Blood Count 4.88 10^6/uL High 3.70-4.87 Hemoglobin 14.2 g/dL Normal 12.0-16.0 Hematocrit 43 % Normal 35-47 Mean Corpuscular Volume 88 fL Normal 80-97 Mean Corpuscular Hemoglobin 29 pg Normal 27-31 Mean Corpuscular HGB Conc 33 g/dL Normal 31-36 Red Cell Distribution Width 13 % Normal 10-15 Platelet Count 441 10^3/uL Normal 150-450 Mean Platelet Volume 6.4 fL Low 7.4-10.4 Abs Neutrophils 6.1 10^3/uL Normal 1.5-7.7 Abs Lymphocytes 1.6 10^3/uL Normal 1.0-4.8 Abs Monocytes 0.5 10^3/uL Normal 0-0.8 Abs Eosinophils 0.3 10^3/uL Normal 0-0.6 Abs Basophils 0.1 10^3/uL Normal 0-0.2 Abs Nucleated RBC 0.0 10^3/uL Granulocyte % 71.2 % Lymphocyte % 18.5 % Monocyte % 6.3 % Eosinophil % 3.4 % Basophil % 0.6 % Nucleated Red Blood Cells % 0.0 Comp Metabolic 02/04/2019 [facility] Sodium 138 mmol/L Normal 135-[address] [place] [address] [phone] Potassium 3.8 mmol/L Normal 3.5-5.0 Chloride 102 mmol/L Normal 101-111 Co2 Carbon Dioxide 30 mmol/L Normal 22-32 Anion Gap 6 mmol/L Normal 2-11 Glucose 91 mg/dL Normal 70-100 Blood Urea Nitrogen 12 mg/dL Normal 6-24 Creatinine 0.83 mg/dL Normal 0.51-0.95 BUN/Creatinine Ratio 14.5 Normal 8-20 Calcium 9.1 mg/dL Normal 8.6-10.3 Total Protein 6.9 g/dL Normal 6.4-8.9 Albumin 4.1 g/dL Normal 3.2-5.2 Globulin 2.8 g/dL Normal 2-4 Albumin/Globulin Ratio 1.5 Normal 1-3 Total Bilirubin 0.40 mg/dL Normal 0.2-1.0 Alkaline Phosphatase 60 U/L Normal 34-104 Alt 16 U/L Normal 7-52 Ast 22 U/L Normal 13-39 Egfr Non- 73.1 >60 Egfr 88.4 >60 12 Laboratory test 02/04/2019 [facility] Lipase 17 U/L Normal 11.0-82.[address] [place] [address] [phone] C Reactive Protein 7.89 mg/L Normal <8.01 Lactic Acid 1.1 mmol/L Normal 0.5-2.0 13 1 *Ascorbic acid is present which may interfere with detection of blood. 2 Because ethnic data is not always readily available, this report includes an eGFR for both -Americans and non- Americans. The National Kidney Disease Education Program (NKDEP) does not endorse the use of the MDRD equation for patients that are not between the ages of 18 and 70, are , have extremes of body size, muscle mass, or nutritional status, or are non- or non-. According to the National Kidney Foundation, irrespective of diagnosis, the stage of the disease is based on the level of kidney function: Stage Description GFR(mL/min/1.73 m(2)) 1 Kidney damage with normal or decreased GFR 90 2 Kidney damage with mild decrease in GFR 60-89 3 Moderate decrease in GFR 30-59 4 Severe decrease in GFR 15-29 5 Kidney failure <15 (or dialysis) 3 FASTING 10 HOUR 4 Desirable: <150 Borderline High: 150-199 High: 200-499 Very High: >500 5 Desirable: <200 Borderline High: 200-239 High: >239 6 Low: <40 Desirable: 40-60 High: >60 7 Desirable: <100 Near Optimal: 100-129 Borderline High: 130-159 High: 160-189 Very High: >189 8 SEE RESULT BELOW Name: LARRY GA : [address]: Alex Arboleda MD Acct: [id number] Unit: [id number] AGE: 48 Location: ED Re02/26/19 SEX: F Status: DEP ER SPEC: [id number] JAVIER: 02/26/[address]: Lynda WORTHY REQ: [id number] RECD: 02/26/19 STATUS: JUWAN POWELL DR: [facility] Matilda Rodriguez MD _ SOURCE: URINE SPDESC: ORDERED: Urine Culture Procedure Result Reported Site Urine Culture Final 02/28/19- 836 ML No Growth (<1,000 CFU/mL) * ML - Main Lab . END OF REPORT DEPARTMENT OF PATHOLOGY, [address] [place] [address] Moise Farrell M.D. Director [facility] # [id number] 9 <5.0 Negative 5.0 - 25.0 Indeterminate (Repeat testing recommended after 72 hours) >25.0 Positive Perimenopausal women can display HCG levels of up to 20 mIU/mL 10 Because ethnic data is not always readily available, this report includes an eGFR for both -Americans and non- Americans. The National Kidney Disease Education Program (NKDEP) does not endorse the use of the MDRD equation for patients that are not between the ages of 18 and 70, are , have extremes of body size, muscle mass, or nutritional status, or are non- or non-. According to the National Kidney Foundation, irrespective of diagnosis, the stage of the disease is based on the level of kidney function: Stage Description GFR(mL/min/1.73 m(2)) 1 Kidney damage with normal or decreased GFR 90 2 Kidney damage with mild decrease in GFR 60-89 3 Moderate decrease in GFR 30-59 4 Severe decrease in GFR 15-29 5 Kidney failure <15 (or dialysis) 11 [facility] Severe Sepsis and Septic Shock Management Bundle Measure requires all lactic acids initially measuring >2.0 mmol/L be repeated. 12 Because ethnic data is not always readily available, this report includes an eGFR for both -Americans and non- Americans. The National Kidney Disease Education Program (NKDEP) does not endorse the use of the MDRD equation for patients that are not between the ages of 18 and 70, are , have extremes of body size, muscle mass, or nutritional status, or are non- or non-. According to the National Kidney Foundation, irrespective of diagnosis, the stage of the disease is based on the level of kidney function: Stage Description GFR(mL/min/1.73 m(2)) 1 Kidney damage with normal or decreased GFR 90 2 Kidney damage with mild decrease in GFR 60-89 3 Moderate decrease in GFR 30-59 4 Severe decrease in GFR 15-29 5 Kidney failure <15 (or dialysis) 13 [facility] Severe Sepsis and Septic Shock Management Bundle Measure requires all lactic acids initially measuring >2.0 mmol/L be repeated. Procedures Date Code Description Status 01/05/2019 [id number] Mammogram Completed 08/28/2015 [id number] Mammogram Completed 07/06/2015 [id number] Colonoscopy Completed 07/29/2014 [id number] Colonoscopy Completed 09/17/2013 [id number] Mammogram Completed 08/05/2013 [id number] Colonoscopy Completed 05/01/2011 [id number] Mammogram Completed Medical Devices Description No Information Available Encounters Type Date Location Provider Dx Diagnosis Office Visit 06/16/2019 [facility] Alfredo Oleary, N99.842 Postproc seroma 9:30a [facility] of a sys org following a sys procedure Office Visit 04/07/2019 [facility] Internal Matilda Rodriguez, Z00.00 Encntr for 9:10a Medicine Yaima Tovar M.D. general adult medical exam w/o abnormal findings N99.89 Oth postprocedural complications and disorders of sys M54.5 Low back pain Office Visit 04/02/2019 [facility] Internal Thomas ENam M54.5 Low back pain 10:00a Medicine - La Wallace M.D. Office Visit 02/15/2019 [facility] Internal Matilda K56.609 Unsp intestnl 8:30a Tashia Rodriguez M.D. obst, unsp as to partial versus complete obst Office Visit 02/06/2019 [facility] Jen Islas, K56.690 Other partial 7:00a [facility] intestinal obstruction Office Visit 02/06/2019 [facility] K56.609 Unsp intestnl 1:21p Assoc,juhi Elise, obst, unsp as to Hospitalists M.DNam partial versus complete obst F32.9 Major depressive disorder, single episode, unspecified K21.9 Gastro-esophageal reflux disease without esophagitis Office Visit 02/05/2019 [facility] Fernandez Pastor 7:00a [facility] Office Visit 02/05/2019 [facility] Jen Islas MD K91.8 Oth postprocedural 7:00a [facility] 9 complications and [employer] disorders of dgstv sys K56.690 Other partial intestinal obstruction Office Visit 02/05/2019 [facility] Jared K56.609 Unsp intestnl 1:20p juhi Pantoja M.D. obst, unsp as Hospitalists to partial versus complete obst F32.9 Major depressive disorder, single episode, unspecified K21.9 Gastro-esophageal reflux disease without esophagitis Office Visit 02/04/2019 1:20p [facility] Hilda Bryson, K56.609 Unsp intestnl Assoc,juhi [facility] obst, unsp as Hospitalists to partial versus complete obst K56.7 Ileus, unspecified F32.9 Major depressive disorder, single episode, unspecified Assessments Date Code Description Provider 06/16/2019 N99.842 Postprocedural seroma of a genitourinary Alfredo Angelita Oleary M.D. system organ or structure following a genitourinary system procedure 04/07/2019 Z00.00 Encounter for general adult medical Matilda Rodriguez M.D. examination without abnormal findings 04/07/2019 N99.89 Other postprocedural complications and Matilda Rodriguez M.D. disorders of genitourinary system 04/07/2019 M54.5 Low back pain Matilda Rodriguez M.D. 04/02/2019 M54.5 Low back pain Thomas Wallace M.D. 02/15/2019 K56.609 Unspecified intestinal obstruction, Matilda Rodriguez M.D. unspecified as to partia 02/06/2019 K56.690 Other partial intestinal obstruction Jen Islas MD 02/06/2019 K56.609 Unsp intestnl obst, unsp as to partial Jared Elise M.D. versus complete obst 02/06/2019 F32.9 Major depressive disorder, single Jared Elise M.D. episode, unspecified 02/06/2019 K21.9 Gastro-esophageal reflux disease without Jared Elise M.D. esophagitis 02/05/2019 K91.89 Other postprocedural complications and Jen Islas MD disorders of digestive system 02/05/2019 K56.609 Unsp intestnl obst, unsp as to partial Jared Elise M.D. versus complete obst 02/05/2019 K56.690 Other partial intestinal obstruction Jen Islas MD 02/05/2019 F32.9 Major depressive disorder, single Jared Elise M.D. episode, unspecified 02/05/2019 K21.9 Gastro-esophageal reflux disease without Jared Elise M.D. esophagitis 02/04/2019 K56.609 Unsp intestnl obst, unsp as to partial Hilda Bryson M.D. versus complete obst 02/04/2019 K56.7 Ileus, unspecified Hilda Bryson M.D. 02/04/2019 F32.9 Major depressive disorder, single Hilda Bryson M.D. episode, unspecified Plan of Treatment 06/16/2019 - Alfredo Oleary M.D.N99.842 Postprocedural seroma of a genitourinary system organ or structure following a genitourinarysystem procedureComments:The following was discussed with Larry at the time of consultation:As indicated by the long-term presence of this fluid collection, this collection is almost certainly a benign seroma secondary to the multiple abdominal pelvic surgeries including colectomy, J-pouch formation as well as gynecologic myomectomy. It was drained in 2017 and appears to have recurred which is not unusual.I discussed the process of absolute ethanol ablation of the seroma. I advised Larry that there is a reduced likelihoodof the seroma recurring but certainly seromas do recur after alcohol ablation. She may require morethan one ablation procedure to cause the seroma to shrink and become asymptomatic. Functional Status Description No Information Available Mental Status Description No Information Available Referrals Refer to Reason for Referral Status Appt Date Alfredo Oleary MD Sent 06/16/[address] [place] [id number] [phone]
--- NOTE | 2019-07-01 04:41 | ED ---
Abdominal Pain/Female - HPI Summary HPI Summary: Pt is a 48 y/o F presenting to the ED with a chief complaint of abd pain. She also reports nausea, intermittent since 1100 on 06/30/19. She also had one episode of diaphoresis and a small bowel movement. Pt denies fever and vomiting. Hx SBO/UC. She notes she had almonds this week, which is what triggered her last SBO. She tries to chew them well when she does eat them. - History of Current Complaint Chief Complaint: EDAbdPain Stated Complaint: ABD PAIN PER PT Time Seen by Provider: 07/01/19 03:59 Hx Obtained From: Patient Onset/Duration: Gradual Onset, Lasting Hours, Still Present Timing: Hours Severity Initially: Moderate Severity Currently: Severe Pain Intensity: 8 Pain Scale Used: 0-10 Numeric Location: Diffuse Radiates: No Aggravating Factor(s): Other: - almonds Alleviating Factor(s): Nothing Associated Signs and Symptoms: Positive: Nausea. Negative: Fever, Vomiting Allergies/Adverse Reactions: Allergies Allergy/AdvReac Type Severity Reaction Status Date / Time levofloxacin Allergy Itching Verified 07/01/19 00:52 metronidazole [From Flagyl] Allergy Rash Verified 07/01/19 00:52 Sulfa (Sulfonamide Allergy Rash Verified 07/01/19 00:52 Antibiotics) PMH/Surg Hx/FS Hx/Imm Hx Previously Healthy: Yes Endocrine/Hematology History: Denies: Hx Diabetes Cardiovascular History: Denies: Hx Angina, Hx Atrial Fibrillation, Hx Cardiac Arrest, Hx Congestive Heart Failure, Hx Coronary Artery Disease, Hx Hypercholesterolemia, Hx Hypertension, Hx Myocardial Infarction, Hx Pacemaker/ICD, Hx Valvular Heart Disease Respiratory History: Reports: Other Respiratory Problems/Disorders - cough since april, Denies: Hx Asthma, Hx Chronic Obstructive Pulmonary Disease (COPD) GI History: Reports: Hx Gastroesophageal Reflux Disease, Other GI Disorders - hx colitis History: Reports: Other Problems/Disorders - uterine fibroids, scar tissue in ovaries Denies: Hx Dialysis, Hx Renal Disease Sensory History: Denies: Hx Contacts or Glasses, Hx Hearing Aid Opthamlomology History: Denies: Hx Contacts or Glasses Neurological History: Reports: Hx Migraine Denies: Hx Headaches Psychiatric History: Reports: Hx Attention Deficit Hyperactivity Disorder Denies: Hx Panic Disorder - Cancer History Hx Chemotherapy: No Hx Radiation Therapy: No - Surgical History Surgery Procedure, Year, and Place: 11/1992 TOTAL COLECTOMY;. 09/1993 ILEOANAL PULL THRU;. 07/2004 ;. 02/2010 MYOMECTOMY;. MULTIPL PERIRECTAL ABCESSES AND ABDOMINAL ABCESSES WITH DRAININGS; Infectious Disease History: No Infectious Disease History: Denies: Traveled Outside the [place] in Last 30 Days - Family History Known Family History: Positive: Other - Colitis and Celiac Disease. Aneurysm in mother. Negative: Hypertension, Diabetes - Social History Alcohol Use: Rare Hx Substance Use: No Substance Use Type: Reports: None Hx Tobacco Use: No Smoking Status (MU): Never Smoked Tobacco Review of Systems - ROS Summary Review of Systems Summary: Home Medications Medication Instructions Recorded Confirmed Type Omeprazole CAP (NF) [Prilosec CAP* 20 mg PO DAILY 07/13/18 07/01/19 History 20 MG] L. Rhamnosus GG/Inulin [Culturelle 1 each PO DAILY 10/02/18 07/01/19 History Digest 10B Cell Cap] LoraTADine TAB(NF) [Claritin 10 MG 10 mg PO DAILY 02/04/19 07/01/19 History TAB(NF)] Negative: Fever Positive: Abdominal Pain, Nausea. Negative: Vomiting All Other Systems Reviewed And Are Negative: Yes Physical Exam - Summary Physical Exam Summary: General: Well-developed, Well-nourished female. No acute distress. HEENT: Normocephalic, Atraumatic. Eyes: Conjuctiva normal, PERRL. Oropharynx: Clear, mucous membranes moist, (-) exudates. Neck: Soft, FROM, (-) lymphadenopathy, (-) thyromegaly, (-) JVD. Cardiovascular: Normal sinus rhythm, (-) murmur. Lungs: Clear to auscultation bilaterally (-) wheezes, (-) rales, (-) rhonchi. Abdomen: Soft, mild diffuse tenderness, non-distended, (-) organomegaly, high- pitched bowel sounds. Back: (-) CVA tenderness Extremities: No edema. Skin: Warm, dry, (-) rash. Neuro: Alert and oriented x3, no focal deficits. Psychiatric: Mood normal, affect normal. Triage Information Reviewed: Yes Vital Signs On Initial Exam: Initial Vitals Temp Pulse Resp BP Pulse Ox 97.7 F 68 16 134/85 99 07/01/19 00:45 07/01/19 00:45 07/01/19 00:45 07/01/19 00:45 07/01/19 00:45 Vital Signs Reviewed: Yes Procedures - Sedation Patient Received Moderate/Deep Sedation with Procedure: No Diagnostics - Vital Signs Vital Signs Temp Pulse Resp BP Pulse Ox 07/01/19 04:06 98.0 F 67 15 114/72 98 07/01/19 03:05 98.2 F 58 16 106/67 95 07/01/19 00:45 97.7 F 68 16 134/85 99 - Laboratory Result Diagrams: 07/01/19 04:50 07/01/19 04:50 Lab Statement: Any lab studies that have been ordered have been reviewed, and results considered in the medical decision making process. - Radiology Abd XR Radiology Interpretation Completed By: ED Physician Summary of Radiographic Findings: Extensive air throughout colon. Dilated colon. Probable SBO. Pending official radiology report. Re-Evaluation - Re-Evaluation 1st re-eval Re-Evaluation Time: 06:33 Change: Unchanged Comment: Will sign pt out to Dr. Paula pending CT of the abd. Abdominal Pain Fem Course/Dx - Course Course Of Treatment: 48-year-old female with abdominal pain. Nausea. Concern for small bowel obstruction. Patient states she has a history of ulcerative colitis. Multiple surgeries in her abdomen. Workup shows probable small bowel obstruction on x-ray. CT abdomen and pelvis ordered. Signed out at change of shift awaiting imaging results and disposition. - Diagnoses Provider Diagnoses: Abdominal pain Discharge ED - Sign-Out/Discharge Documenting (check all that apply): Sign-Out Patient Signing out patient TO: Carlos Paula - Discharge Plan Referrals: Matilda Rodriguez MD [Primary Care Provider] - - Attestation Statements Document Initiated by Scribe: Yes Documenting Scribe: Lucie Malcolm Provider For Whom [place] is Documenting (Include Credential): Sara Olivia MD. Scribe Attestation: Lucie Baez, scribed for Sara Olivia MD. on 07/01/19 at 0645. Scribe Documentation Reviewed: Yes Provider Attestation: The documentation as recorded by the Lucie gomez accurately reflects the service I personally performed and the decisions made by me, Sara Olivia MD. Status of Scribe Document: Viewed
[2019-07-01] MEDS ORDERED: Ondansetron INJ* 2 MG/ML VIAL IV ONE ×3 (04:53→15:24)
[2019-07-01] MEDS ORDERED: Pantoprazole IV* 40 MG IV ONE (04:53)
[2019-07-01] MEDS ORDERED: NS 0.9% 1000 ML** 1,000 ML IV ONE (04:53)
[2019-07-01 04:57] LABS: ABS Lymphocytes 0.8 10^3/ul (1.0-4.8); ABS Monocytes 0.3 10^3/ul (0-0.8); ABS Neutrophils 7.1 10^3/ul (1.5-7.7); Eosinophil % 0.5 %; Hematocrit 41 % (35-47); Lymphocyte % 10.2 %; Mean Corpuscular HGB Conc 34 g/dL (31-36); Mean Corpuscular Hemoglobin 29 pg (27-31); Mean Corpuscular Volume 86 fL (80-97); Mean Platelet Volume 6.9 fL (7.4-10.4); Nucleated Red Blood Cells % 0.1; Platelet Count 385 10^3/uL (150-450); Red Blood Count 4.77 10^6 /uL (3.70-4.87); Red Cell Distribution Width 13 % (10-15); White Blood Count 8.3 10^3/uL (3.5-10.8)
[2019-07-01 05:08] LABS: INR 1.03 (0.82-1.09)
[2019-07-01 05:19] LABS: Albumin 4.5 g/dL (3.2-5.2); Calcium 9.6 mg/dL (8.6-10.3); Total Bilirubin 0.5 mg/dL (0.2-1.0)
[2019-07-01 05:25] LABS: Albumin/Globulin Ratio 1.4 (1-3); BUN/Creatinine Ratio 25.7 (8-20); C Reactive Protein 7.51 mg/L (<8.01); EGFR African American 107.6 (>60); EGFR Non-African American 88.9 (>60); Globulin 3.2 g/dL (2-4); Total Protein 7.7 g/dL (6.4-8.9)
[2019-07-01 05:30] LABS: HCG Pregnancy 3.3 mIU/mL
[2019-07-01] MEDS ORDERED: Iohexol 300* (CONTRAST) 10 ML SDV IV ONE (06:44)
[2019-07-01 06:59] LABS: Urine Appearance Clear; Urine Bilirubin Negative (Negative); Urine Blood Negative (Negative); Urine Color Straw; Urine Glucose Negative (Negative); Urine Ketones Negative (Negative); Urine Nitrite Negative (Negative); Urine Protein Negative (Negative); Urine Specific Gravity 1.005 (1.010-1.030); Urine Urobilinogen Negative (Negative)
--- NOTE | 2019-07-01 07:14 | ED ---
Progress - Progress Note Progress Note: This patient is a 48 y/o F who presents to [facility] with chief complaint of abdominal pain. This patient is a sign-out from Dr. Sara Olivia to Dr. Carlos Paula at 0700 on 07/01/19 at shift change pending CT A/P and disposition. Re-Evaluation - Re-Evaluation 1st re-eval Re-Evaluation Time: 09:13 Comment: Discussed results with patient and that Dr. Jenkins will come see the patient in the ED. Patient reports having a history of ulcerative colitis and receiving a total colectomy at [facility] in [facility] years ago. Patient reports having a cough for the past two weeks, so I will order a CXR. Second Eval Re-Evaluation Time: 11:01 Comment: Discussed Dr. Jenkins's recommendations with patient. Patient reports her colorectal surgeon is Dr. Carlos Barksdale at [facility] Course/Dx - Course Course Of Treatment: This patient is a 48 y/o F who presents to [facility] with chief complaint of abdominal pain. This patient is a sign-out from Dr. Sara Olivia to Dr. Carlos Paula at 0700 on 07/01/19 at shift change pending CT A/P and disposition. CT A/P revealed 1. POSTOPERATIVE CHANGES ARE RELATED TO TOTAL COLECTOMY AND ILEOANAL PULL-THROUGH. THERE IS SIMILAR MILD NARROWING NEAR THE ANASTOMOSIS SITE (AXIAL IMAGE 61). THE UPSTREAM LOOPS OF BOWEL ARE DILATED. GAS EXTENDS DISTAL TO THE ANASTOMOSIS. A PARTIAL SMALL BOWEL OBSTRUCTION IS SUSPECTED. 2. A 8.3 CM CYSTIC LEFT ADNEXAL STRUCTURE IS SLIGHTLY LARGER. At 0907 , discussed patient case with Dr. Jenkins, general surgeon, who will come see the patient in the ED and requested an NG-tube placement and fluids. At 1100, discussed patient case with Dr. Jenkins, who reports that the patient needs to be transferred to her surgeon for balloon dilation in [place] who performed the balloon dilation last time. CXR revealed: 1. No acute process by radiograph. 2. An enteric tube is in place. At 1156, discussed patient case with Transfer Center who reports there is a bed available at [facility] and that Dr. Barksdale, the patient's surgeon, will be in at 1230. Await[address] Barksdale's callback with acceptance of the patient. At 1307, Dr. Barksdale called back and accepted the patient for transfer. Patient will be transferred to [facility] with dx of partial SBO. Patient understands and agrees with this plan. - Diagnoses Provider Diagnoses: SBO (small bowel obstruction) - Provider Notifications Discussed Care Of Patient With: Igor Jenkins Time Discussed With Above Provider: 09:07 Instructed by Provider To: Other - Discussed patient case with Dr. Jenkins, general surgeon, who will come see the patient in the ED and requested an NG- tube placement and fluids. At 1100, discussed patient case with Dr. Jenkins, who reports that the patient needs to be transferred to her surgeon for balloon dilation in [place] who performed the balloon dilation last time. At 1156, discussed patient case with Transfer Center who reports there is a bed available at [facility] and that Dr. Barksdale, the patient's surgeon, will be in at 12[address]. A[address] Barksdale's callback with acceptance of the patient. At 1307, Dr. Barksdale called back and accepted the patient for transfer. Discharge ED - Sign-Out/Discharge Documenting (check all that apply): Patient Departure - Transfer, Receiving Sign -Out Receiving patient FROM: Sara Olivia - Discharge Plan Condition: Stable Disposition: TRANS HIGHER LVL OF CARE FAC Referrals: Matilda Rodriguez MD [Primary Care Provider] - - Billing Disposition and Condition Condition: STABLE Disposition: Trans Higher Lvl of Care Fac - Attestation Statements Document Initiated by Felicee: Yes Documenting Scribe: John Loza Provider For Whom [place] is Documenting (Include Credential): MD Bowen Etienneibnasir Attestation: John Baez, scribed for Carlos Paula MD on 07/01/19 at 1446. Scribe Documentation Reviewed: Yes Provider Attestation: The documentation as recorded by the John gomez accurately reflects the service I personally performed and the decisions made by , Carlos Paula MD Status of Scribe Document: Viewed Procedures - Sedation Patient Received Moderate/Deep Sedation with Procedure: No Diagnostics - Vital Signs Vital Signs Temp Pulse Resp BP Pulse Ox 07/01/19 07:36 69 122/87 97 07/01/19 07:19 70 122/81 99 07/01/19 07:10 71 100 07/01/19 06:24 97.6 F 65 17 117/86 100 07/01/19 06:06 66 137/86 98 07/01/19 06:00 64 96 07/01/19 05:36 65 113/78 96 07/01/19 05:06 64 117/69 97 07/01/19 05:00 63 95 07/01/19 04:36 71 102/78 99 07/01/19 04:07 68 98 07/01/19 04:06 98.0 F 67 15 114/72 99 07/01/19 03:05 98.2 F 58 16 106/67 95 07/01/19 00:45 97.7 F 68 16 134/85 99 - Laboratory Lab Results: Lab Results 07/01/19 07/01/19 07/01/19 Range/Units 04:50 04:50 04:50 WBC 8.3 (3.5-10.8) 10^3/uL RBC 4.77 (3.70-4.87) 10^6 /uL Hgb 14.0 (12.0-16.0) g/dL Hct 41 (35-47) % MCV 86 (80-97) fL MCH 29 (27-31) pg MCHC 34 (31-36) g/dL RDW 13 (10-15) % Plt Count 385 (150-450) 10^3/uL MPV 6.9 L (7.4-10.4) fL Neut % (Auto) 85.7 % Lymph % (Auto) 10.2 % [place] % (Auto) 3.1 % Eos % (Auto) 0.5 % Baso % (Auto) 0.5 % Absolute Neuts (auto) 7.1 (1.5-7.7) 10^3/ul Absolute Lymphs (auto) 0.8 L (1.0-4.8) 10^3/ul Absolute Monos (auto) 0.3 (0-0.8) 10^3/ul Absolute Eos (auto) 0.0 (0-0.6) 10^3/ul Absolute Basos (auto) 0.0 (0-0.2) 10^3/ul Absolute Nucleated RBC 0.0 10^3/ul Nucleated RBC % 0.1 INR (Anticoag Therapy) (0.82-1.09) Sodium 137 (135-145) mmol/L Potassium 4.0 (3.5-5.0) mmol/L Chloride 103 (101-111) mmol/L Carbon Dioxide 25 (22-32) mmol/L Anion Gap 9 (2-11) mmol/L BUN 18 (6-24) mg/dL Creatinine 0.70 (0.51-0.95) mg/dL Est GFR ( Amer) 107.6 (>60) Est GFR (Non-Af Amer) 88.9 (>60) BUN/Creatinine Ratio 25.7 H (8-20) Glucose 109 H (70-100) mg/dL Lactic Acid 1.3 (0.5-2.0) mmol/L Calcium 9.6 (8.6-10.3) mg/dL Total Bilirubin 0.50 (0.2-1.0) mg/dL AST 20 (13-39) U/L ALT 10 (7-52) U/L Alkaline Phosphatase 68 (34-104) U/L C-Reactive Protein 7.51 (<8.01) mg/L Total Protein 7.7 (6.4-8.9) g/dL Albumin 4.5 (3.2-5.2) g/dL Globulin 3.2 (2-4) g/dL Albumin/Globulin Ratio 1.4 (1-3) Amylase 57 (29-103) U/L Lipase 16 (11.0-82.0) U/L Beta HCG, Quant 3.30 mIU/mL Urine Color Urine Appearance Urine pH (5-9) Ur Specific [place] (1.010-1.030) Urine Protein (Negative) Urine Ketones (Negative) Urine Blood (Negative) Urine Nitrate (Negative) Urine Bilirubin (Negative) Urine Urobilinogen (Negative) Ur Leukocyte Esterase (Negative) Urine Glucose (Negative) 07/01/19 07/01/19 Range/Units 04:50 06:28 WBC (3.5-10.8) 10^3/uL RBC (3.70-4.87) 10^6 /uL Hgb (12.0-16.0) g/dL Hct (35-47) % MCV (80-97) fL MCH (27-31) pg MCHC (31-36) g/dL RDW (10-15) % Plt Count (150-450) 10^3/uL MPV (7.4-10.4) fL Neut % (Auto) % Lymph % (Auto) % [place] % (Auto) % Eos % (Auto) % Baso % (Auto) % Absolute Neuts (auto) (1.5-7.7) 10^3/ul Absolute Lymphs (auto) (1.0-4.8) 10^3/ul Absolute Monos (auto) (0-0.8) 10^3/ul Absolute Eos (auto) (0-0.6) 10^3/ul Absolute Basos (auto) (0-0.2) 10^3/ul Absolute Nucleated RBC 10^3/ul Nucleated RBC % INR (Anticoag Therapy) 1.03 (0.82-1.09) Sodium (135-145) mmol/L Potassium (3.5-5.0) mmol/L Chloride (101-111) mmol/L Carbon Dioxide (22-32) mmol/L Anion Gap (2-11) mmol/L BUN (6-24) mg/dL Creatinine (0.51-0.95) mg/dL Est GFR ( Amer) (>60) Est GFR (Non-Af Amer) (>60) BUN/Creatinine Ratio (8-20) Glucose (70-100) mg/dL Lactic Acid (0.5-2.0) mmol/L Calcium (8.6-10.3) mg/dL Total Bilirubin (0.2-1.0) mg/dL AST (13-39) U/L ALT (7-52) U/L Alkaline Phosphatase (34-104) U/L C-Reactive Protein (<8.01) mg/L Total Protein (6.4-8.9) g/dL Albumin (3.2-5.2) g/dL Globulin (2-4) g/dL Albumin/Globulin Ratio (1-3) Amylase (29-103) U/L Lipase (11.0-82.0) U/L Beta HCG, Quant mIU/mL Urine Color Straw Urine Appearance Clear Urine pH 7.0 (5-9) Ur Specific [place] 1.005 L (1.010-1.030) Urine Protein Negative (Negative) Urine Ketones Negative (Negative) Urine Blood Negative (Negative) Urine Nitrate Negative (Negative) Urine Bilirubin Negative (Negative) Urine Urobilinogen Negative (Negative) Ur Leukocyte Esterase Negative (Negative) Urine Glucose Negative (Negative) Result Diagrams: 07/01/19 04:50 07/01/19 04:50 Lab Statement: Any lab studies that have been ordered have been reviewed, and results considered in the medical decision making process. - Radiology CXR Radiology Interpretation Completed By: Radiologist Summary of Radiographic Findings: 1. No acute process by radiograph. 2. An enteric tube is in place. Dr. Paula has reviewed this radiology report. Abd XR Radiology Interpretation Completed By: ED Physician Summary of Radiographic Findings: Extensive air throughout colon. Dilated colon. Probable SBO. Pending official radiology report. - CT A/P CT Interpretation Completed By: Radiologist Summary of CT Findings: 1. POSTOPERATIVE CHANGES ARE RELATED TO TOTAL COLECTOMY AND ILEOANAL PULL-THROUGH. THERE IS SIMILAR MILD NARROWING NEAR THE ANASTOMOSIS SITE (AXIAL IMAGE 61). THE UPSTREAM LOOPS OF BOWEL ARE DILATED. GAS EXTENDS DISTAL TO THE ANASTOMOSIS. A PARTIAL SMALL BOWEL OBSTRUCTION IS SUSPECTED. 2. A 8.3 CM CYSTIC LEFT ADNEXAL STRUCTURE IS SLIGHTLY LARGER. Dr. Paula has reviewed this radiology report.
[2019-07-01] MEDS ORDERED: Lactated Ringers 1000 ML Bag* 1,000 ML IV SCH (10:00)
[2019-07-01] MEDS ORDERED: fentaNYL* 50 MCG/ML 2 ML VIAL (100 MCG VIAL) IV SLOW PU ONE (10:49)
[2019-07-01] MEDS ORDERED: fentaNYL* 50 MCG/ML 2 ML VIAL (100 MCG VIAL) ONE (11:15)
[2019-07-01] MEDS ORDERED: Morphine 4 MG/ML VIAL (1 ml) 4 MG/ML VIAL IV ONE (15:23)
[2019-07-01 15:56] VITALS: BP 146/88
== END 2019-07-01 15:45 | disposition short-term general hospital (02) ==
LOC: ED 00:28
DX: K56.609 Unspecified intestinal obstruction, unspecified as to partial versus complete obstruction (principal); Z90.49 Acquired absence of other specified parts of digestive tract; K21.9 Gastro-esophageal reflux disease without esophagitis; Z79.899 Other long term (current) drug therapy; Z88.1 Allergy status to other antibiotic agents; Z88.2 Allergy status to sulfonamides
CPT/HCPCS: 36415; 71045; 74018; 74177; 80053; 81003; 82150; 83605; 83690; 84702; 85025; 85610; 86140; 96361; 96374; 96375; 96376; 99285; J2270; J2405; J3010; Q9967